=== PATIENT | male | born 1985 ===

== ENCOUNTER 2022-06-02 23:50 | Emergency (ER) | payer OTHER, SELFPAY ==
--- NOTE | ~2022-06-02 | CT_ITS ---
EXAMINATION: CT ABDOMEN AND PELVIS WITHOUT CONTRAST CLINICAL INFORMATION: Right flank pain, hematuria COMPARISON: 04/24/2017 TECHNIQUE: Multidetector volumetric imaging was performed from the superior aspect of the liver through the pubic symphysis. Sagittal and coronal reformatted images were obtained on the technologist's workstation. This CT examination was performed using dose optimization techniques as appropriate, variously including the following: *Automated exposure control *Adjustment of mA and/or kV according to patient size (this includes techniques or standardized protocols for targeted exams where dose is matched to indication/reason for exam; i.e. extremities or head) *Use of iterative reconstruction technique DLP: 701 mGy-cm FINDINGS: LUNG BASES: The visualized lung bases are unremarkable. LIVER, GALLBLADDER, AND BILIARY TREE: The liver is normal in size, shape, and attenuation. No focal hepatic lesion or biliary ductal dilatation is identified. The gallbladder is contracted and not adequately evaluated. PANCREAS: Unremarkable. SPLEEN: Unremarkable. ADRENAL GLANDS: Unremarkable. KIDNEYS AND URETERS: There is a 4 mm mid right ureteral calculus with mild hydronephrosis and perinephric stranding. No left hydronephrosis. There are several scattered bilateral renal calculi measuring up to 3 mm. BLADDER: Unremarkable. GASTROINTESTINAL TRACT: No evidence of bowel obstruction or significant wall thickening. Scattered colonic diverticulosis. The appendix is unremarkable. No free fluid or free air is seen. ABDOMINAL WALL: No significant hernia is appreciated. LYMPH NODES: Normal. VASCULAR: Unremarkable. PELVIC VISCERA: Unremarkable. OSSEOUS STRUCTURES: Bilateral L5 pars defects are noted with grade 1 anterolisthesis of L5 on S1. CT/CT abdomen pelvis wo IV con IMPRESSION: 1. Mid right ureteral calculus measuring 4 mm with mild hydronephrosis. 2. Several scattered bilateral renal calculi.
[2022-06-02 23:54] VITALS: BP 147/86; PULSE 79; RESP 17; TEMP 36.7; O2SAT 100; BMI 32.5
[2022-06-03] MEDS: Ibuprofen 600 MG TABLET PO (00:01)
[2022-06-03 00:19] LABS: MANUAL DIFF FLAG NO
[2022-06-03 00:22] LABS: Basophils Absolute Auto 0.1 X10*3/uL (0.0-0.2); Basophils Percent Auto 0.5 % (0-2); Eosinophils Absolute Auto 0.4 X10*3/uL (0.0-0.4); Hematocrit 41.4 % (42.0-52.0); Hemoglobin 14.6 g/dl (14.0-18.0); Imm Gran Abs Auto 0.06 X10*3/uL (0.00-0.03); Imm Gran Pct Auto 0.7 % (0.0-0.4); Lymphocytes Absolute Auto 3.5 X10*3/uL (1.2-4.9); Lymphocytes Percent Auto 37.9 % (20-40); Mean Corpuscular HGB Conc 35.3 g/dl (31.0-36.0); Mean Corpuscular Hemoglobin 32.2 pg (27.0-33.0); Mean Corpuscular Volume 91.4 fL (80.0-98.0); Mean Platelet Volume 8.5 fL (9.4-12.4); Monocytes Absolute Auto 0.9 X10*3/uL (0.1-1.2); Monocytes Percent Auto 9.4 % (2-11); Neutrophils Absolute Auto 4.4 x10*3/uL (2.0-8.3); Neutrophils Percent Auto 47.5 % (45-73); Platelet Count 318 X10*3/uL (160-400); Red Blood Count 4.53 X10*6/uL (4.60-5.80); Red Cell Distribution Width 11.9 % (11.0-16.0); White Blood Count 9.2 X10*3/uL (4.8-10.8)
[2022-06-03 00:39] LABS: Alanine Aminotransferase 28 U/L (0-40); Albumin Level 4.2 g/dL (3.5-5.0); Alkaline Phosphatase 86 U/L (39-117); Anion Gap 17 (12-20); Aspartate Amino Transferase 24 U/L (5-37); Blood Urea Nitrogen 15 mg/dL (9-16); Calcium 9.4 mg/dL (8.4-10.2); Carbon Dioxide 26 mmol/L (22-29); Chloride 100 mmol/L (96-108); Creatinine Clr Calc Pharmacy 92.3; Estimated Glomerular Filt Rate > 60; Glucose Random 100 mg/dL (60-115); Lipase 62 U/L (8-78); Potassium 3.4 mmol/L (3.3-5.1); Sodium 140 mmol/L (135-145); Total Protein 7.2 g/dL (6.5-8.0)
[2022-06-03 01:15] LABS: Bilirubin Total 0.5 mg/dL (0.0-1.0)
[2022-06-03 01:47] VITALS: BP 138/80; PULSE 70; RESP 18; TEMP 36.8; O2SAT 98
[2022-06-03 01:55] LABS: Appearance Urine Cloudy; Color Urine RED; Glucose Urine UA Negative (Negative); Leukocyte Esterase Urine Negative (Negative); Nitrite Urine Positive (Negative); UMIC TRIGGER UACC YES; Urine Blood Large (3+) (Negative); Urine Ketones Negative (Negative); Urine Protein 30 (1+) mg/dL (Neg-Trace)
[2022-06-03 02:00] LABS: Bacteria Urine None Seen (None Seen); Hyaline Casts Urine 0-2 /LPF (0-2); RBC Urine >20 /HPF (0-2); Squamous Epithelial Cell Urine 0-2 /HPF (0-2); UACC Culture Trigger YES
--- NOTE | 2022-06-03 02:03 | ED.ABDPAIN ---
HPI - Abdominal Pain General Chief Complaint: Abdominal Pain Stated Complaint: stomach/kidney pain, urinating blood Time Seen by Provider: 06/03/22 01:13 Source: patient Mode of arrival: ambulatory Limitations: no limitations History of Present Illness HPI narrative: 37-year-old male who presents emergency department for evaluation of right abdominal/flank pain and hematuria. Patient states that 2 days prior he noted some blood in his urine. States that he had some mild right-sided flank and abdominal pain at that time. He states that last night at 20:30 hours he had a sudden onset of severe right flank and right lower abdominal pain which was constant, sharp and 10/10. He had associated nausea but no vomiting. He denied fever or chills. He did notice blood in his urine. He denied dysuria or frequency. The patient states he has had kidney stones in the past his last kidney stone was 1 year prior. MD elicited complaint: abdominal pain and flank pain Pertinent past history: kidney stones Onset (ago): hour(s) (4) Pain Consistency: constant Location: RLQ and R flank Severity: severe Pain scale (0-10): 10 Quality: sharp Radiation: none Migration to: no migration Exacerbating factors: nothing Relieving factors: nothing Associated symptoms: nausea and hematuria Related Data Previous Rx's Medication Instructions Recorded clonidine HCl 0.1 mg tablet 0.1 mg PO BEDTIME 90 days #90 tabs 11/15/21 naltrexone 50 mg tablet 50 mg PO DAILY 30 days #30 tabs 11/15/21 sertraline 25 mg tablet (Zoloft) 25 mg PO DAILY 90 days #90 tabs 11/15/21 albuterol sulfate 90 mcg/actuation 1 inh inhalation QID PRN shortness 01/07/22 aerosol inhaler of breath or wheezing 30 days #8.5 grams ondansetron 4 mg disintegrating 4 mg PO Q6-8H PRN nausea and 06/03/22 tablet vomiting #14 tabs oxycodone-acetaminophen 5 mg-325 1 tab PO Q4H PRN pain #14 tabs 06/03/22 mg tablet (Percocet) tamsulosin 0.4 mg capsule (Flomax) 0.4 mg PO DAILY #30 caps 06/03/22 Allergies Allergy/AdvReac Type Severity Reaction Status Date / Time No Known Allergies Allergy Verified 06/02/22 23:54 [No Known Allergies*] Review of Systems Review of Systems Yes all other systems are reviewed and are negative [facility] Past Medical History [facility] Narrative: Past medical history: Kidney stones. Past surgical history: None. Social history: The patient does smoke cigarettes. He states that he has been drinking daily. He states that he has used cocaine and PCP intranasally. Patient's brother 2 weeks prior from an overdose and he states that he has been grieving and has not been taking care of himself. Family History Family History Mother No problems noted. Father DMII (diabetes mellitus, type 2) Brother No problems noted. Brother No problems noted. Brother No problems noted. Sister No problems noted. Sister No problems noted. Sister No problems noted. Son No problems noted. Son No problems noted. Social History Social History Housing: Apartment Alcohol intake: former Year quit: 2019 Patient Tobacco Use Status: Never used Tobacco e-Cigarette/Vaping Use: Never Used Second Hand Smoke Exposure: No Substance Use Type: Crack/Cocaine and Hallucinogens Advance Directives: No Advance Directives Information Provided: No Current occupational status: employed Current occupation: [employer] Cognitive needs: No Hearing needs: No Vision needs: No Physical Exam ED Vital Signs: Vital Signs - 24 hr 06/02/22 23:54 06/03/22 01:47 06/03/22 04:27 Temperature 98.0 F 98.2 F 98.2 F Pulse Rate 79 70 72 Respiratory Rate 17 18 17 Blood Pressure 147/86 H 138/80 138/74 Pulse Oximetry 100 98 98 Oxygen Delivery Method Room Air Room Air Room Air BMI result Body Mass Index 32.5 Const General: cooperative and no acute distress Orientation/consciousness: oriented to person and oriented to place Limitations: no limitations HENMT Head: Yes normal to inspection, Yes normocephalic and Yes atraumatic Ears: external ears normal General nose exam: Normal external nose present Face and sinus: Yes normal facial exam Mouth: Normal oral and palatal mucosa present Throat: Yes posterior oropharynx normal Eyes General: appearance normal, both eyes and all related structures Pupils: Equal, round and reactive pupils present Neck Neck: Yes normal visual inspection, Yes no lymphadenopathy, Yes trachea midline and Yes supple Chest Chest palpation & inspection: normal inspection of the chest and normal palpation of entire chest wall Resp Effort & Inspection: normal respiratory effort and able to speak in complete sentences Auscultation: clear to auscultation bilaterally Cardio Rate: regular rate Rhythm: regular rhythm Heart sounds: S1 normal heart sound present, S2 normal heart sound present and no murmurs GI Inspection: Yes normal to inspection Palpation (GI): Soft to palpation, Tenderness to palpation present (GI) in the RLQ and no guarding Auscultation: normal bowel sounds General: Yes CVA tenderness on the right Back/Spine/Pelvis Back: CVA tenderness Skin General skin exam: no rashes or lesions noted Neuro General: oriented to person and oriented to place Cranial nerves: Yes CN's II-XII intact bilaterally and Yes Equal, round and reactive pupils present Cognition (Neuro): normal cognition Motor exam (neuro): 5/5 motor strength present throughout Extrem General: Yes normal to inspection Psych Appearance: grossly normal Speech and movement: Normal speech and movement present Affect: normal affect Attitude: cooperative Thought process: Normal thought process present Thought content: Normal thought content present Course Course Course Narrative: 37-year-old male with history kidney stones who presents emergency department for sudden onset of right flank and right lower quadrant abdominal pain at 20:30 hours last night, he has had hematuria intermittently for 2 days. Patient's exam did reveal right CVA tenderness and right lower quadrant tenderness. Laboratory evaluation revealed a normal CBC and CMP. The patient's CT scan of the abdomen pelvis revealed a mid right your all calculus measuring 4 mm . Urinalysis revealed 3+ blood, positive nitrates, negative leukocyte esterase. Microscopic revealed greater than 20 RBCs, 6-10 WBCs 2 squamous cells and no bacteria. Patient's presentation is consistent with acute renal calculus causing renal colic. Patient was treated with Toradol 15 mg IV morphine 4 mg IV and normal saline x1 L. He was also given Flomax 0.4 mg orally. 0617: Patient did get some improvement with the above treatment, he states that his pain is 6/10. He was given morphine 4 mg IV. Patient will be discharged home. Patient was advised to take ibuprofen and for pain not relieved by ibuprofen was prescribed Percocet. Was also prescribed Flomax and Zofran Medications Administered Discontinued Medications Generic Name Dose Route Start Last Admin Trade Name Freq PRN Reason Stop Dose Admin Sodium Chloride 1,000 mls @ 999 mls/hr 06/03/22 02:03 06/03/22 04:04 Ns IV 06/03/22 03:03 Infused .Q1H1M STA Infusion Ibuprofen 600 mg 06/02/22 23:58 06/03/22 00:01 Ibuprofen 600 Mg Tablet PO 06/02/22 23:59 600 mg ONCE ONE Administration Ketorolac Tromethamine 15 mg 06/03/22 02:03 06/03/22 02:36 Ketorolac Tromethamine 15 Mg/Ml Vial IVPUSH 06/03/22 02:04 15 mg ONCE STA Administration Morphine Sulfate 4 mg 06/03/22 02:03 06/03/22 02:35 Morphine Sulfate 4 Mg/Ml Cartridge IVPUSH 06/03/22 02:04 4 mg ONCE STA Administration Protocol Ondansetron HCl 4 mg 06/03/22 02:03 06/03/22 02:35 Ondansetron Hcl 4 Mg/2 Ml Vial IVPUSH 06/03/22 02:04 4 mg ONCE ONE Administration Tamsulosin HCl 0.4 mg 06/03/22 02:10 06/03/22 02:36 Tamsulosin Hcl 0.4 Mg Capsule PO 06/03/22 02:11 0.4 mg ONCE ONE Administration MDM - Abdominal Pain Lab Data Result diagrams: 06/03/22 00:14 06/03/22 00:14 Labs: Lab Results 06/03/22 06/03/22 06/03/22 Range/Units 00:14 00:14 01:50 WBC 9.2 (4.8-10.8) X10*3/uL RBC 4.53 L (4.60-5.80) X10*6/uL Hgb 14.6 (14.0-18.0) g/dl Hct 41.4 L (42.0-52.0) % MCV 91.4 (80.0-98.0) fL MCH 32.2 (27.0-33.0) pg MCHC 35.3 (31.0-36.0) g/dl RDW 11.9 (11.0-16.0) % Plt Count 318 (160-400) X10*3/uL MPV 8.5 L (9.4-12.4) fL Immature Gran % (Auto) 0.7 H (0.0-0.4) % Neut % (Auto) 47.5 (45-73) % Lymph % (Auto) 37.9 (20-40) % [place] % (Auto) 9.4 (2-11) % Eos % (Auto) 4.0 (0-4) % Baso % (Auto) 0.5 (0-2) % Lymph # (Auto) 3.5 (1.2-4.9) X10*3/uL [place] # (Auto) 0.9 (0.1-1.2) X10*3/uL Eos # (Auto) 0.4 (0.0-0.4) X10*3/uL Baso # (Auto) 0.1 (0.0-0.2) X10*3/uL Abs Immat Gran (auto) 0.06 H (0.00-0.03) X10*3/uL Absolute Neuts (auto) 4.4 (2.0-8.3) x10*3/uL Absolute Nucleated RBC 0.000 (0.0-0.012) X10*3/uL Nucleated RBC % (auto) 0.0 (0.0-0.2) /100WBC Sodium 140 (135-145) mmol/L Potassium 3.4 (3.3-5.1) mmol/L Chloride 100 (96-108) mmol/L Carbon Dioxide 26 (22-29) mmol/L Anion Gap 17 (12-20) BUN 15 (9-16) mg/dL Creatinine 1.30 (0.5-1.4) mg/dL Estim Creat Clear Calc 92.3 Estimated GFR > 60 Random Glucose 100 (60-115) mg/dL Calcium 9.4 (8.4-10.2) mg/dL Total Bilirubin 0.5 (0.0-1.0) mg/dL AST 24 (5-37) U/L ALT 28 (0-40) U/L Alkaline Phosphatase 86 (39-117) U/L Total Protein 7.2 (6.5-8.0) g/dL Albumin 4.2 (3.5-5.0) g/dL Lipase 62 (8-78) U/L Urine Color RED Urine Appearance Cloudy Urine pH 7.0 (5.0-9.0) Ur Specific [place] 1.020 (1.005-1.025) Urine Protein 30 (1+) H (Neg-Trace) mg/dL Urine Glucose (UA) Negative (Negative) mg/dL Urine Ketones Negative (Negative) mg/dL Urine Blood Large (3+) H (Negative) Urine Nitrite Positive H (Negative) Ur Leukocyte Esterase Negative (Negative) Urine RBC >20 H (0-2) /HPF Urine WBC 6-10 H (0-5) /HPF Ur Squamous Epith Cells 0-2 (0-2) /HPF Urine Bacteria None Seen (None Seen) Hyaline Casts 0-2 (0-2) /LPF Discharge Plan Discharge Clinical Impression: Right ureteral calculus, Ureteral colic Patient Disposition: Home, Self-Care Instructions: Kidney Stones (ED), How to Strain Your Urine (ED) Additional Instructions: Your blood work was normal. Your urine did reveal white blood cells and red blood cells but no bacteria. Your CT scan of your abdomen pelvis without IV contrast revealed a right 4 mm mid ureteral stone. This is causing her pain You also have small kidney stones in both kidneys. Take ibuprofen 200 mg pills, 3 pills every 6 hours as needed for pain. For pain not relieved by ibuprofen, take Percocet 5/325 mg pills, 1 pill every 4 hours as needed for pain. Do not drive or work while taking this medication since they can cause sleepiness. Percocet contains oxycodone which is a narcotic medication that can be addicting. If you are concerned about addiction you can ask the pharmacist for less pills or do not get this prescription filled. Take Flomax (tamsulosin) 0.4 mg once a day for the next 2 weeks or until you pass the stone. This medication helps relax the ureter and may help you pass the stone sooner. Follow-up with our on-call urologist, in 1-2 weeks for re-evaluation Please return to the emergency department if your symptoms get worse or if you develop any symptoms that are concerning to you. Prescriptions: New oxycodone-acetaminophen [Percocet] 5-325 mg tablet 1 tab PO Q4H PRN (Reason: pain) Qty: 14 0RF Rx Instructions: Partial Fill upon patient request. tamsulosin [Flomax] 0.4 mg capsule 0.4 mg PO DAILY Qty: 30 0RF ondansetron 4 mg tablet,disintegrating 4 mg PO Q6-8H PRN (Reason: nausea and vomiting) Qty: 14 0RF No Action albuterol sulfate 90 mcg/actuation HFA aerosol inhaler 1 inh inhalation QID PRN (Reason: shortness of breath or wheezing) 30 Days Qty: 8.5 1RF clonidine HCl 0.1 mg tablet 0.1 mg PO BEDTIME 90 Days Qty: 90 1RF sertraline [Zoloft] 25 mg tablet 25 mg PO DAILY 90 Days Qty: 90 1RF naltrexone 50 mg tablet 50 mg PO DAILY 30 Days Qty: 30 2RF
[2022-06-03] MEDS: Morphine Sulfate 4 MG/ML CARTRIDGE IVPUSH ×2 (02:35→06:40)
[2022-06-03] MEDS: ondansetron HCL 4 MG/2 ML VIAL IVPUSH (02:35)
[2022-06-03] MEDS: 0.9 % Sodium Chloride 1,000 ML 999 ML IV (02:36)
[2022-06-03] MEDS: Tamsulosin HCL 0.4 MG CAPSULE PO (02:36)
[2022-06-03] MEDS: Ketorolac Tromethamine 15 MG/ML VIAL IVPUSH (02:36)
[2022-06-03 04:27] VITALS: BP 138/74; PULSE 72; RESP 17; TEMP 36.8; O2SAT 98
== END 2022-06-03 06:50 | disposition home or self-care (01) ==
PROVIDERS: Emergency Provider Emergency Medicine Emergency Medical Services
DX: N20.1 Calculus of ureter (principal); N23 Unspecified renal colic; R31.9 Hematuria, unspecified; Z79.899 Other long term (current) drug therapy
CPT/HCPCS: 36415; 74176; 80053; 81001; 83690; 85025; 87086; 96361; 96374; 96375; 96376; 99284; J1885; J2270; J2405

== ENCOUNTER 2022-11-26 20:25 | Emergency (ER) | payer OTHER, SELFPAY ==
[2022-11-26 20:37] VITALS: BP 152/94; PULSE 79; RESP 18; TEMP 36.6; O2SAT 98; BMI 22.9
--- NOTE | 2022-11-26 20:39 | ED.DENTAL ---
HPI - Dental/Oral General Chief complaint: Dental/Oral Stated complaint: oral pain Time Seen by Provider: 11/26/22 20:43 Source: patient Mode of arrival: ambulatory Limitations: no limitations History of Present Illness HPI Narrative: 37-year-old male with history of asthma, obesity, depression, lumbar back pain presents to the ER for evaluation of right lower dental pain for the last 3 days. He reports the pain is worsening, now radiating to his right ear. It is affecting his sleep. He called his dentist and has an appointment on December 11. He has been taking Tylenol and ibuprofen with no relief. He denies any fevers or facial swelling. No neck swelling. He is status post wisdom teeth extraction about a year ago. No known dental injury; he does have several fillings in that affected tooth. MD Complaint: tooth pain Location: Tooth # (31) Onset (ago): day(s) (3) Duration: constant Severity: severe Severity scale (1-10): 10 Relieving factors: nothing Exacerbating factors: chewing Context: poor dental care Associated symptoms: gum swelling and ear pain Treatment prior to arrival: oral analgesic Related Data Previous Rx's Medication Instructions Recorded clonidine HCl 0.1 mg tablet 0.1 mg PO BEDTIME 90 days #90 tabs 11/15/21 naltrexone 50 mg tablet 50 mg PO DAILY 30 days #30 tabs 11/15/21 sertraline 25 mg tablet (Zoloft) 25 mg PO DAILY 90 days #90 tabs 11/15/21 albuterol sulfate 90 mcg/actuation 1 inh inhalation QID PRN shortness 01/07/22 aerosol inhaler of breath or wheezing 30 days #8.5 grams ondansetron 4 mg disintegrating 4 mg PO Q6-8H PRN nausea and 06/03/22 tablet vomiting #14 tabs tamsulosin 0.4 mg capsule (Flomax) 0.4 mg PO DAILY #30 caps 06/03/22 cyclobenzaprine 10 mg tablet 10 mg PO BEDTIME #14 tabs 07/10/22 meloxicam 15 mg tablet 15 mg PO DAILY #14 tabs 07/10/22 amoxicillin 875 mg-potassium 1 tab PO BID #20 tabs 11/26/22 clavulanate 125 mg tablet ibuprofen 800 mg tablet 800 mg PO Q8H PRN pain #20 tabs 11/26/22 tramadol 50 mg tablet 50 mg PO Q8H PRN severe pain 11/26/22 (scale score 7-10) #6 tabs Allergies Allergy/AdvReac Type Severity Reaction Status Date / Time No Known Allergies Allergy Verified 07/10/22 15:43 [No Known Allergies*] Review of Systems Review of Systems: Yes all other systems are reviewed and are negative [facility] Family History Family History Mother No problems noted. Father DMII (diabetes mellitus, type 2) Brother No problems noted. Brother No problems noted. Brother No problems noted. Sister No problems noted. Sister No problems noted. Sister No problems noted. Son No problems noted. Son No problems noted. Social History Social History Housing: Apartment Alcohol intake: former Year quit: 2019 Patient Tobacco Use Status: Never used Tobacco e-Cigarette/Vaping Use: Never Used Second Hand Smoke Exposure: No Substance Use Type: Crack/Cocaine and Hallucinogens Current occupational status: employed Current occupation: [employer] Cognitive needs: No Hearing needs: No Vision needs: No Physical Exam Vital Signs: Vital Signs: Last Vital Signs Temp 98 F 11/26/22 20:37 Pulse 79 11/26/22 20:37 Resp 18 11/26/22 20:37 BP 152/94 H 11/26/22 20:37 Pulse Ox 98 11/26/22 20:37 O2 Del Method Room Air 11/26/22 20:37 BMI result Body Mass Index 22.9 Appearance: Alert. Oriented X3. No acute distress. HEENT: normal external inspection, no facial swelling. Poor dentition right lower molar with several fillings, the tooth is tender, not mobile. There is associated gingival swelling and tenderness on the you call side. No fluctuance. No trismus. Neck: Normal inspection, no submandibular swelling. CVS: Normal heart rate and rhythm. Pulses normal. Respiratory: No respiratory distress. Lungs are clear throughout Skin: Skin warm and dry. Normal skin color. Normal skin turgor. No rashes. Extremities: Normal inspection x4, no joint swelling Neuro: Oriented X 3. No motor deficit. No sensory deficit. Medical Decision Making Medical Decision Making MDM Narrative: 37-year-old male presents to the ER for evaluation of right lower dental pain for the last 3 days. Clinical exam and presentation are consistent with an evolving dental abscess. He has no facial swelling or trismus. No area of fluctuance for drainage today. Will start on antibiotics and pain control. He has an appointment with his dentist in 2 weeks. He is stable for discharge home with outpatient follow-up. Patient agrees with plan. Differential Diagnosis Differential Diagnoses: The differential diagnosis associated with the presentation includes Dental abscess, toothache, dental fracture External Record Review External record reviewed: Outpatient record and Prior outpatient labs Prescription Management I considered prescription management with: Pain Medication and Antibiotic Critical Care Time Critical Care Time Critical Care Time: No Discharge Plan Discharge Clinical Impression: Dental abscess Patient Disposition: Home, Self-Care Instructions: Dental Abscess (ED) Additional Instructions: Take the prescribed antibiotic as directed. Started tonight. Complete the entire course and do not miss any doses. Take the prescribed ibuprofen every 8 hours, take it with food. Also recommend 975 mg of Tylenol every 6 hours around the clock. Take the prescribed tramadol as needed for severe pain only. Follow-up with your dentist as soon as possible. If you develop new or worsening symptoms call 911 or come back to the ER for further evaluation. Prescriptions: New amoxicillin-pot clavulanate 875-125 mg tablet 1 tab PO BID Qty: 20 0RF ibuprofen 800 mg tablet 800 mg PO Q8H PRN (Reason: pain) Qty: 20 0RF tramadol 50 mg tablet 50 mg PO Q8H PRN (Reason: severe pain (scale score 7-10)) Qty: 6 0RF No Action albuterol sulfate 90 mcg/actuation HFA aerosol inhaler 1 inh inhalation QID PRN (Reason: shortness of breath or wheezing) 30 Days Qty: 8.5 1RF tamsulosin [Flomax] 0.4 mg capsule 0.4 mg PO DAILY Qty: 30 0RF ondansetron 4 mg tablet,disintegrating 4 mg PO Q6-8H PRN (Reason: nausea and vomiting) Qty: 14 0RF clonidine HCl 0.1 mg tablet 0.1 mg PO BEDTIME 90 Days Qty: 90 1RF sertraline [Zoloft] 25 mg tablet 25 mg PO DAILY 90 Days Qty: 90 1RF naltrexone 50 mg tablet 50 mg PO DAILY 30 Days Qty: 30 2RF meloxicam 15 mg tablet 15 mg PO DAILY Qty: 14 0RF cyclobenzaprine 10 mg tablet 10 mg PO BEDTIME Qty: 14 0RF Interventions: ED Discharge Assessment Last Done: 11/26/22 20:44
== END 2022-11-26 20:52 | disposition home or self-care (01) ==
LOC: HO.ED 20:50
PROVIDERS: Emergency Provider Emergency Medicine; PCP Physician Assistant
DX: K04.7 Periapical abscess without sinus (principal)
CPT/HCPCS: 99282; 99283

== ENCOUNTER 2023-03-28 15:24 | Emergency (ER) | payer OTHER, SELFPAY ==
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
[2023-03-28 15:46] VITALS: BP 136/88; BP 138/91; PULSE 82; RESP 18; O2SAT 100; O2SAT 98; BMI 32.1
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
--- NOTE | 2023-03-28 16:14 | PC.NURSE ---
Patient incont of urine prior to arrival, stating unable to provide urine sample at this time
--- NOTE | 2023-03-28 17:20 | PC.NURSE ---
Patient alert and oriented, requesting discharge. Provider aware, stating patient must have a ride home from ER. Patient aware and in agreement for calling for a ride
--- NOTE | 2023-03-28 17:35 | PC.NURSE ---
Patient serjio called stating that she will not be coming to pick patient up because she knows that he was using PCP today. States patient has been in rehab and has a drug and etoh problem. Patient denies etoh use, denies SI, HI, does not want detox.
--- NOTE | 2023-03-28 18:05 | PC.NURSE ---
Patient step father into ED to pick patient up, patient verbalized understanding of discharge instructions
== END 2023-03-28 18:05 | disposition home or self-care (01) ==
PROVIDERS: Emergency Provider Emergency Medicine
DX: S39.012A Strain of muscle, fascia and tendon of lower back, initial encounter (principal); V44.5XXA Car driver injured in collision with heavy transport vehicle or bus in traffic accident, initial encounter; Y93.89 Activity, other specified; Y92.410 Unspecified street and highway as the place of occurrence of the external cause; Y99.9 Unspecified external cause status
CPT/HCPCS: 71046; 72100; 99283; 99284

== ENCOUNTER 2023-04-16 13:25 | Outpatient (AMB) | payer OTHER, SELFPAY ==
--- NOTE | 2023-04-16 13:28 | MHC.PC.OV ---
Vital Signs 04/16/23 13:29 Height 5 ft 9 in Weight 210 lb 4 oz BMI 31.0 BP 122/88 Blood Pressure Location Lt brachial Position Sitting Respiration 16 Pulse 75 Pulse Source Pulse Oximeter Pulse Oximetry (%) 98 Oxygen Delivery Method Room Air Intake Visit Reasons: Annual PE Intake Note: Patient is here today for a physical. DTA provider medical statement form to fill out. Electronic Maintenance Supervisor Required: No Accompanied by: Self / Same As Patient Allergies No Known Allergies [No Known Allergies*] Allergy (Verified 04/16/23 13:47) Medication List - Last Reconciled 04/16/23 by Carlos Hernandez PA-C albuterol sulfate 90 mcg/actuation 1 inh inhalation QID PRN 30 days clonidine HCl 0.1 mg PO BEDTIME 90 days ibuprofen 800 mg PO Q8H PRN meloxicam 15 mg PO DAILY sertraline (Zoloft) 25 mg PO DAILY 90 days tramadol 50 mg PO Q8H PRN Tobacco use date assessed: 04/16/23 Dental Screening Dental Screen Date: 04/16/23 Did you have a dental visit in the last 12 months?: No Did you have a dental problem in the last 6 months where you did not have access to dental care?: No Was dental information given to patient?: Yes HPI Annual PE HPI Details Patient is a 37-year-old male here today for a t annual physical visit. Patient has past medical history significant for depression, polysubstance abuse and anxiety. Recently seen the ER for lower back pain x-ray did show arthritis in his lower back and L5 S1 disc height loss.. Does have a small amount of scoliosis as well. He is interested in further mint and would likely benefit from physical therapy. If fails physical therapy will consider MRI lumbar spine to evaluate for disc herniation. We did discuss pain management and will Depression: Has been suffering more with depression as of lately. He reports his brother diet this past year from and drug overdose. He would like to restart his SSRI therapy. Vaccine: UTD Tdap and COVID vacc. Recenly gotten flu vacine [facility] Medical History (Updated 04/16/23 @ 14:10 by Carlos Hernandez PA-C) SANJUANA (generalized anxiety disorder) MDD (major depressive disorder), recurrent episode, moderate Asthma Polysubstance abuse Family History Mother No problems noted. Father DMII (diabetes mellitus, type 2) Brother No problems noted. Brother No problems noted. Brother No problems noted. Sister No problems noted. Sister No problems noted. Sister No problems noted. Son No problems noted. Son No problems noted. Social History (Updated 04/16/23 @ 13:54 by Carlos Hernandez PA-C) Housing: Apartment Alcohol intake: former Year quit: 2019 Patient Tobacco Use Status: Never used Tobacco e-Cigarette/Vaping Use: Never Used Second Hand Smoke Exposure: No Substance Use Type: Crack/Cocaine and Unknown service: No Current occupational status: employed Current occupation: [employer] Cognitive needs: No Hearing needs: No Vision needs: No Questionnaire PHQ-9 Over the last 2 weeks, how often have you been bothered by any of the following problems? 1. Little interest or pleasure in doing things: more than half the days 2. Feeling down, depressed, or hopeless: nearly every day 3. Trouble falling or staying asleep, or sleeping too much: more than half the days 4. Feeling tired or having little energy: nearly every day 5. Poor appetite or overeating: nearly every day 6. Feeling bad about yourself - or that you are a failure or have let yourself or your family down: nearly every day 7. Trouble concentrating on things, such as reading the newspaper or watching television: nearly every day 8. Moving or speaking so slowly that other people could have noticed. Or the opposite - being so fidgety or restless that you have been moving around a lot more than usual: more than half the days 9. Thoughts that you would be better off or of hurting yourself in some way: more than half the days Total score: 23 Depression Screening Interpretation: Positive Depression Screening Follow-up: Existing condition, Community Mental Health Worker F/U and Follow-up Visit Requested Depression Screening Done: Yes 82261 - PHQ-9 Billing: Yes Source: Developed by Drs. Abel Velasquez, Jennifer Rodríguez, Dionisio Driscoll and colleagues, with an educational john from [employer] Thrive Questionnaire Date Thrive assessed: 04/16/23 I am a: Patient What is your living situation today?: I have a steady place to live Within the past 12 months, did the food you bought not last and you didn't have the money to get more?: Never true Within the past 12 months, did you worry whether your food would run out before you got money to buy more?: Never true Do you have trouble paying for medicines?: No Do you have trouble getting transportation to medical appointments?: No Do you have trouble paying your heating and electricity bill?: No Do you have trouble taking care of your child, family member or friend?: No Do you have trouble with day-to-day activities such as bathing, preparing meals, shopping, managing finances, etc.?: No Are you currently unemployed and looking for a job?: No Are you interested in more education?: No Please select the resources that you would like help with: None Currently or been in a relationship where the following occur: no concerns reported AUDIT C Alcohol Use Questionnaire (AUDIT-C) 1. How often do you have a drink containing alcohol?: 2-3 times a week 2. How many drinks containing alcohol do you have on a typical day when you are drinking?: 7 to 9 3. How often do you have six or more drinks on one occasion?: Weekly Total Score: 9 SANJUANA-7 AMB Questionnaire SANJUANA-7 Date SANJUANA - 7 assessed: 04/16/23 Feeling nervous, anxious, or on edge: 2 = More than half the days Not being able to stop or control worryin = Nearly every day Worrying too much about different things: 3 = Nearly every day Trouble relaxin = Nearly every day Being so restless that it is hard to sit still: 3 = Nearly every day Becoming easily annoyed or irritable: 2 = More than half the days Feeling afraid as if something awful might happen: 2 = More than half the days Total SANJUANA-7 score (0-4 normal; 5-9 mild; 10-14 moderate; 15-21 severe): 18 Source: Developed by Drs. Abel Velasquez, Jennifer Rodríguez, Dionisio Driscoll and colleagues, with an educational john from [employer] SANJUANA-7 Assessment Billing SANJUANA-7 Assessment Tool: SANJUANA-7 Assessment 31897 Review of Systems Const Denies body aches, Denies chills, Denies excessive sweating, Denies fatigue, Denies fever(s) and Denies headache(s) Eyes Denies blurry vision ENT Denies dysphagia, Denies vertigo, Denies dizziness, Denies headache(s), Denies hearing loss and Denies tinnitus Card Denies chest pain, Denies chest pain with activity, Denies syncope, Denies irregular heart rhythm and Denies dyspnea Resp Denies chest congestion, Denies cough, Denies hemoptysis, Denies dyspnea and Denies wheezing GI Denies abdominal pain, Denies melena, Denies hematochezia, Denies coffee ground emesis, Denies dysphagia, Denies diarrhea, Denies nausea and Denies vomiting Denies difficulty urinating, Denies dysuria, Denies urinary frequency, Denies urinary hesitancy and Denies urinary urgency Musc Reports back pain, Denies arthralgias, Denies limited range of motion, Denies muscle cramps and Denies muscle weakness Skin/Breast Denies rash and Denies skin ulcer Neuro Denies Abnormal speech present, Denies confusion, Denies vertigo, Denies dizziness, Denies syncope, Denies headache(s), Denies memory loss and Denies seizure-like activity Psych Reports anxiety, Denies confusion, Reports depression, Denies memory loss, Denies panic attacks and Denies paranoia Endo Denies excessive sweating, Denies fatigue, Denies flushing, Denies polydipsia and Denies polyuria Aller/Immun Denies wheezing Physical exam (Primary Care) Vital Signs: Last Vital Signs Pulse 75 04/16/23 13:29 Resp 16 04/16/23 13:29 BP 122/88 04/16/23 13:29 Pulse Ox 98 04/16/23 13:29 Oxygen Delivery Method Room Air 04/16/23 13:29 BMI result Body Mass Index 31.0 BMI Assessment/Plan discussion: High Tobacco/Smoking Status: Tobacco use Status Tobacco use date assessed 04/16/23 04/16/23 13:41 Patient Tobacco Use Status Never used Tobacco 04/16/23 13:54 e-Cigarette/Vaping Use Never Used 04/16/23 13:54 PHQ-9: PHQ-9 Score PHQ-9: Total score 23 04/16/23 13:51 Depression Screening Interpretation: Positive Depression Screening Follow-up: Existing condition, Community Mental Health Worker F/U and Follow-up Visit Requested Thrive Assessment: Date of Thrive Assessment Date Thrive assessed 04/16/23 04/16/23 13:41 Currently or been in a relationship where the following occur: no concerns reported Const Other: OBESE General: cooperative, comfortable, no acute distress, alert and awake; No confusion Orientation/consciousness: oriented to person, oriented to place, patient oriented x3 and No confusion HENMT Head: Yes normocephalic Ears: external ears normal and TM's normal bilaterally Face and sinus: No sinus tenderness Mouth: Normal oral and palatal mucosa present and tongue normal Teeth and gingiva: dentition normal and gingiva normal Throat: Yes posterior oropharynx normal, Yes tonsils normal and Yes uvula midline Eyes Conjunctivae: conjunctivae normal Sclerae: sclerae normal Pupils: Equal, round and reactive pupils present EOM: EOMs intact bilaterally Direct Ophthalmoscopy: No no photophobia Neck Neck: Yes no lymphadenopathy, No tender and Yes no JVD Thyroid: Thyroid normal Carotids: no bruits Chest Chest palpation & inspection: no tenderness Resp Effort & Inspection: normal respiratory effort, no audible wheezes, not labored and no stridor Auscultation: no crackles, no rales, no rhonchi and no wheezes Cardio Jugular venous distension: no JVD Rate: regular rate, not bradycardic and not tachycardic Rhythm: regular rhythm Bruits: no carotid bruits Peripheral pulses: Peripheral pulses 2+ throughout GI Inspection: Yes normal to inspection, No abdominal wall ecchymosis and No visible herniation Palpation (GI): Soft to palpation, nontender, no guarding, not rigid and No hepatosplenomegaly present Auscultation: normoactive bowel sounds General: Yes no CVA tenderness Back/Spine/Pelvis Back: no CVA tenderness and No back tenderness Cervical Spine: cervical ROM normal Thoracic/Lumbar Spine: thoracic and lumbar spine normal to inspection, straight leg raise negative bilaterally, No thoraco-lumbar ROM limited and No lumbar spinal tenderness Skin Lesions: no lesions Rashes: no rashes Wounds: no wounds Neuro General: oriented to person, oriented to place, patient oriented x3, CN's II-XI intact bilaterally and No confusion Cranial nerves: Yes Equal, round and reactive pupils present and Yes Normal accommodation reflex present Cognition (Neuro): normal cognition Speech: No Abnormal speech present Gait exam (Neuro): Normal gait present Motor exam (neuro): 5/5 motor strength present throughout Extrem Right upper extremity: full ROM; no cyanosis Left upper extremity: full ROM; no cyanosis Right lower extremity: no edema Left lower extremity: no edema Psych Appearance: grossly normal Mental Status: mental status grossly normal Affect: normal affect Attitude: cooperative Thought process: Normal thought process present Assessment and Plan Assessment & Plan (1) Annual physical exam: Code(s): Z00.00 - Encounter for general adult medical examination without abnormal findings (2) MDD (major depressive disorder), recurrent episode, moderate: Code(s): F33.1 - Major depressive disorder, recurrent, moderate Plan: Patient's PHQ-9 score positive for moderate depression. This has been existing condition for him and he has not been on his depression medication. Like to restart his Zoloft and p.r.n. use of his clonidine. He denies any SI or HI. Will try to set him up with mental health therapy (3) Polysubstance abuse: Code(s): F19.10 - Other psychoactive substance abuse, uncomplicated Plan: Patient does report a history of polysubstance abuse. His drugs of choice was crack cocaine and oral opiates. He does admit to using illicit Percocet on the street for his lower back pain. (4) SANJUANA (generalized anxiety disorder): Code(s): F41.1 - Generalized anxiety disorder Plan: Patient's SANJUANA-7 score positive for anxiety which has been insisting condition for him. He would like to restart using clonidine and Zolofton a daily basis which does help him with his anxiety again he is interested seeing a mental health therapist (5) Obese: Code(s): E66.9 - Obesity, unspecified Qualifiers: Body mass index: BMI 34.0-34.9 Obesity classification: adult class 1 (BMI 30 - 34.9) Obesity type: due to excess calories Serious obesity comorbidity presence: without serious comorbidity Qualified Code(s): E66.09 - Other obesity due to excess calories; Z68.34 - Body mass index [BMI] 34.0-34.9, adult Plan: Patient does understand his BMI is over 30 try to work on being more physically active and adapting to better eating habits to reduce his weight. (6) Asthma: Code(s): J45.909 - Unspecified asthma, uncomplicated Qualifiers: Asthma complication type: uncomplicated Asthma persistence: intermittent Asthma severity: mild Qualified Code(s): J45.20 - Mild intermittent asthma, uncomplicated Plan: Asthma is reported as stable. Only using his albuterol inhaler and limited p.r.n. basis. Did have trouble with his asthma after his COVID infection last year. (7) Screening for diabetes mellitus (DM): Code(s): Z13.1 - Encounter for screening for diabetes mellitus (8) Lumbar back pain: Code(s): M54.50 - Low back pain, unspecified Plan: Patient does report having chronic lower back pain. He is interested seeing a chiropractor for an adjustment. Offered him formal physical therapy though he declines at this time. Will send for x-ray to rule out any osteoarthritis deformities. (9) Lumbar disc disease with radiculopathy: Code(s): M51.16 - Intervertebral disc disorders with radiculopathy, lumbar region Orders: Orders PT Evaluation and Treatment 04/16/23 M51.16 - Intervertebral disc disorders with radiculopathy, lumbar region, M51.9 - Unspecified thoracic, thoracolumbar and lumbosacral intervertebral disc disorder Referrals Counseling Referral F33.1 - Major depressive disorder, recurrent, moderate Medications: New baclofen 20 mg PO BEDTIME 30 days 30 tabs 1RF M51.16 - Intervertebral disc disorders with radiculopathy, lumbar region sertraline (Zoloft) 50 mg PO DAILY 90 tabs 1RF F33.1 - Major depressive disorder, recurrent, moderate Changed From meloxicam 15 mg PO DAILY 14 tabs 0RF M51.16 - Intervertebral disc disorders with radiculopathy, lumbar region To meloxicam 15 mg PO DAILY 30 days 30 tabs 1RF M51.16 - Intervertebral disc disorders with radiculopathy, lumbar region Refilled clonidine HCl 0.1 mg PO BEDTIME 90 days 90 tabs 1RF F41.1 - Generalized anxiety disorder tramadol 50 mg PO Q8H PRN 6 tabs 0RF severe pain (scale score 7-10) M51.16 - Intervertebral disc disorders with radiculopathy, lumbar region Discontinued ibuprofen Discontinued Reason: Doctor's Order 800 mg PO Q8H PRN 20 tabs 0RF pain sertraline (Zoloft) Discontinued Reason: Doctor's Order 25 mg PO DAILY 90 days 90 tabs 1RF F33.1 - Major depressive disorder, recurrent, moderate Coding Level of Care Code Est Pt Prev Care [id number]([id number]) Diagnoses Annual physical exam Z00.00 MDD (major depressive disorder), recurrent episode, moderate F33.1 Polysubstance abuse F19.10 SANJUANA (generalized anxiety disorder) F41.1 Class 1 obesity due to excess calories without serious comorbidity with body mass index (BMI) of 34.0 to 34.9 in adult E66.09; Z68.34 Body mass index: BMI 34.0-34.9 Obesity classification: adult class 1 (BMI 30 - 34.9) Obesity type: due to excess calories Serious obesity comorbidity presence: without serious comorbidity Mild intermittent asthma without complication J45.20 Asthma complication type: uncomplicated Asthma persistence: intermittent Asthma severity: mild Screening for diabetes mellitus (DM) Z13.1 Lumbar back pain M54.50 Lumbar disc disease with radiculopathy M51.16 Additional Codes SANJUANA-7 Assessment Billing - SANJUANA-7 Assessment Tool: SANJUANA-7 Assessment 14393 ([id number])
[2023-04-16 13:29] VITALS: BP 122/88; PULSE 75; RESP 16; O2SAT 98; BMI 31.0
== END 2023-04-16 14:16 | disposition home or self-care (01) ==
PROVIDERS: Visit Provider Physician Assistant
DX: Z00.00 Encounter for general adult medical examination without abnormal findings (principal); F33.1 Major depressive disorder, recurrent, moderate; F19.10 Other psychoactive substance abuse, uncomplicated; F41.1 Generalized anxiety disorder; E66.09 Other obesity due to excess calories; Z68.34 Body mass index [BMI] 34.0-34.9, adult; J45.20 Mild intermittent asthma, uncomplicated; Z13.1 Encounter for screening for diabetes mellitus; M54.50 Low back pain, unspecified; M51.16 Intervertebral disc disorders with radiculopathy, lumbar region
CPT/HCPCS: 96127; 99395

== ENCOUNTER 2023-05-14 22:20 | Emergency (ER) | payer MEDICAID, OTHER, SELFPAY ==
[2023-05-14 22:28] VITALS: BP 142/96; PULSE 68; RESP 18; TEMP 37; O2SAT 98; BMI 31.0
[2023-05-14 23:21] LABS: Amphetamine Screen Urine Not Detected (Not Detect); Barbiturates, Urine Not Detected (Not Detect); Benzodiazepines Screen Urine Not Detected (Not Detect); Cannabinoid Screen Urine Not Detected (Not Detect); Cocaine Screen Urine POSITIVE (Not Detect); Fentanyl, urine Not Detected (Not Detect); Opiate Screen Urine Not Detected (Not Detect); Phencyclidine Screen Urine POSITIVE (Not Detect)
[2023-05-14 23:30] LABS: COVID-19 Test Negative (Negative); IDNOW Serial# 08D9AD1C
[2023-05-14 23:41] LABS: MANUAL DIFF FLAG NO
[2023-05-14 23:42] LABS: Basophils Percent Auto 0.5 % (0-2); Eosinophils Absolute Auto 0.6 X10*3/uL (0.0-0.4); Hematocrit 41.1 % (42.0-52.0); Hemoglobin 14.5 g/dl (14.0-18.0); Imm Gran Abs Auto 0.01 X10*3/uL (0.00-0.03); Imm Gran Pct Auto 0.1 % (0.0-0.4); Lymphocytes Absolute Auto 2.3 X10*3/uL (1.2-4.9); Lymphocytes Percent Auto 31.3 % (20-40); Mean Corpuscular HGB Conc 35.3 g/dl (31.0-36.0); Mean Corpuscular Hemoglobin 32.4 pg (27.0-33.0); Mean Corpuscular Volume 91.7 fL (80.0-98.0); Mean Platelet Volume 8.8 fL (9.4-12.4); Monocytes Absolute Auto 0.8 X10*3/uL (0.1-1.2); Monocytes Percent Auto 11.4 % (2-11); Neutrophils Absolute Auto 3.6 x10*3/uL (2.0-8.3); Neutrophils Percent Auto 48.7 % (45-73); Platelet Count 280 X10*3/uL (160-400); Red Blood Count 4.48 X10*6/uL (4.60-5.80); Red Cell Distribution Width 11.1 % (11.0-16.0); White Blood Count 7.4 X10*3/uL (4.8-10.8)
--- NOTE | 2023-05-14 23:44 | ED.PSYCH ---
HPI - Psych General Chief Complaint: Psychiatric Symptoms Stated Complaint: Rehab Time Seen by Provider: 05/14/23 22:48 Source: patient Mode of arrival: ambulatory Limitations: no limitations History of Present Illness HPI Narrative: Patient is a 38-year-old male who presents emergency department requesting help. He states that he recently has increased his frequency of drug and alcohol usage, he states when I go on a [place] I times use a lot of cocaine and PCP when I am drinking. He reports last drug or alcohol consumption 2 days ago, on Friday . Currently he is experiencing new intermittent headache, about tremulous earlier today. He denies any history of withdrawal seizures. is requesting assistance with detox. He has been having increasing depression, alcohol or drug usage is his way of collection by his account care and he expresses made SI when he is using substances, but denies SI/ HI this time. He has a history of anxiety and depression, he reports he is currently prescribed clonidine and Zoloft which he does not feel as though these help, he is typically taking them a 3-4 times weekly Related Data Previous Rx's Medication Instructions Recorded albuterol sulfate 90 mcg/actuation 1 inh inhalation QID PRN shortness 01/07/22 aerosol inhaler of breath or wheezing 30 days #8.5 grams baclofen 20 mg tablet 20 mg PO BEDTIME 30 days #30 tabs 04/16/23 clonidine HCl 0.1 mg tablet 0.1 mg PO BEDTIME 90 days #90 tabs 04/16/23 meloxicam 15 mg tablet 15 mg PO DAILY 30 days #30 tabs 04/16/23 sertraline 50 mg tablet (Zoloft) 50 mg PO DAILY #90 tabs 04/16/23 tramadol 50 mg tablet 50 mg PO Q8H PRN severe pain 04/16/23 (scale score 7-10) #6 tabs Allergies Allergy/AdvReac Type Severity Reaction Status Date / Time No Known Allergies Allergy Verified 05/14/23 22:28 [No Known Allergies*] Review of Systems Review of Systems: Yes all other systems are reviewed and are negative PMFSH Past Medical History Attestation statement: The following information was validated with the patient. Source: old records reviewed Medical History SANJUANA (generalized anxiety disorder) MDD (major depressive disorder), recurrent episode, moderate Asthma Polysubstance abuse Family History Family History Mother No problems noted. Father DMII (diabetes mellitus, type 2) Brother No problems noted. Brother No problems noted. Brother No problems noted. Sister No problems noted. Sister No problems noted. Sister No problems noted. Son No problems noted. Son No problems noted. Social History Social History (Updated 04/16/23 @ 13:54 by Carlos Hernandez PA-C) Housing: Apartment Alcohol intake: former Year quit: 2019 Patient Tobacco Use Status: Never used Tobacco e-Cigarette/Vaping Use: Never Used Second Hand Smoke Exposure: No Substance Use Type: Crack/Cocaine and Unknown Advance Directives: No Advance Directives Information Provided: No service: No Current occupational status: employed Current occupation: [employer] Cognitive needs: No Hearing needs: No Vision needs: No Physical Exam Vital Signs: Vital Signs: Last Vital Signs Temp 98.6 F 05/14/23 22:28 Pulse 68 05/14/23 22:28 Resp 18 05/14/23 22:28 BP 142/96 H 05/14/23 22:28 Pulse Ox 98 05/14/23 22:28 O2 Del Method Room Air 05/14/23 22:28 BMI result Body Mass Index 31.0 Appearance: Alert.?Oriented to person, place and time. No acute distress.?Normal affect. Eyes: Pupils equal, round and reactive to light.? EOMI. No nystagmus. ENT: Pharynx normal.?? Neck: Normal inspection.? Neck supple.?? CVS: Heart sounds normal. Normal heart rate and rhythm.? Pulses normal.?? Respiratory: No respiratory distress.? Lung sounds clear to auscultation bilaterally?? Abdomen: Soft and non-tender. Normoactive bowel sounds. Skin: Skin warm and dry.? Normal skin color.? Extremities: No lower extremity edema.? Neuro: Moves all extremities spontaneously. Sensation intact bilaterally. CN II-XII intact. No focal neuro deficits. Ambulates with normal steady gait. Course Reevaluation(s) Reevaluation #1: placed in physician observation at this time so that care team evaluation can ensure for determination as to whether inpatient psychiatric services versus assistance with detox. At this time he is stable, no apparent distress. Time: 00:16 Reevaluation #2: Physician observation continued. VS stable, pending CARE team evaluation. no acute events reported overnight. + for PCP Medical Decision Making Medical Decision Making [facility] Narrative: Patient is a 38-year-old male with history of anxiety, depression, polysubstance use disorder presenting to the emergency department for evaluation of depression, vague SI without a specific plan while under the influence of drugs and alcohol usage, currently with out a size/ HI, and seeking assistance with detox from he drug and alcohol. At the time my examination he is calm and cooperative. He has been experiencing an intermittent headache today, did not take any OTC medication for this. He has no focal neurological deficits upon examination. No red flag symptoms with headache. Atraumatic in nature, low suspicion for ICH/ SDH/ intracranial mass /CVA. Will medicated with acetaminophen. plan to obtain basic labs and toxicology for medical clearance, and refer patient to CARE team. Differential Diagnosis Differential Diagnoses: The differential diagnosis associated with the presentation includes ( suicidal ideations, depression, polysubstance use disorder, tension headache. Further differential as noted above.) Admission/Observation Consideration of admission/observation: Escalation of care including admission/observation considered Consult Healthcare Provider Management of the patient was discussed with: Behavioral Health Provider (CARE team) Lab Data [facility] Lab Attestation statement: I reviewed the patient's lab results. CBC and CMP are overall unremarkable. Toxicology testing Positive for cocaine and PCP. 05/14/23 23:36 05/14/23 23:36 Labs: Lab Results 05/14/23 05/14/23 Range/Units 23:00 23:36 WBC 7.4 (4.8-10.8) X10*3/uL RBC 4.48 L (4.60-5.80) X10*6/uL Hgb 14.5 (14.0-18.0) g/dl Hct 41.1 L (42.0-52.0) % MCV 91.7 (80.0-98.0) fL MCH 32.4 (27.0-33.0) pg MCHC 35.3 (31.0-36.0) g/dl RDW 11.1 (11.0-16.0) % Plt Count 280 (160-400) X10*3/uL MPV 8.8 L (9.4-12.4) fL Immature Gran % (Auto) 0.1 (0.0-0.4) % Neut % (Auto) 48.7 (45-73) % Lymph % (Auto) 31.3 (20-40) % [place] % (Auto) 11.4 H (2-11) % Eos % (Auto) 8.0 H (0-4) % Baso % (Auto) 0.5 (0-2) % Lymph # (Auto) 2.3 (1.2-4.9) X10*3/uL [place] # (Auto) 0.8 (0.1-1.2) X10*3/uL Eos # (Auto) 0.6 H (0.0-0.4) X10*3/uL Baso # (Auto) 0.0 (0.0-0.2) X10*3/uL Abs Immat Gran (auto) 0.01 (0.00-0.03) X10*3/uL Absolute Neuts (auto) 3.6 (2.0-8.3) x10*3/uL Absolute Nucleated RBC 0.000 (0.0-0.012) X10*3/uL Nucleated RBC % (auto) 0.0 (0.0-0.2) /100WBC Sodium 142 (135-145) mmol/L Potassium 3.6 (3.3-5.1) mmol/L Chloride 106 (96-108) mmol/L Carbon Dioxide 28 (22-29) mmol/L Anion Gap 12 (12-20) BUN 15 (9-16) mg/dL Creatinine 1.18 (0.5-1.4) mg/dL Estim Creat Clear Calc 98.5 Estimated GFR > 60 Random Glucose 113 (60-115) mg/dL Calcium 9.0 (8.4-10.2) mg/dL Total Bilirubin 0.4 (0.0-1.0) mg/dL AST 21 (5-37) U/L ALT 18 (0-40) U/L Alkaline Phosphatase 70 (39-117) U/L Total Protein 7.0 (6.5-8.0) g/dL Albumin 4.0 (3.5-5.0) g/dL Urine Opiates Screen Not Detected (Not Detect) Urine Fentanyl Screen Not Detected (Not Detect) Ur Barbiturates Screen Not Detected (Not Detect) Ur Phencyclidine Scrn POSITIVE H (Not Detect) Ur Amphetamines Screen Not Detected (Not Detect) U Benzodiazepines Scrn Not Detected (Not Detect) Urine Cocaine Screen POSITIVE H (Not Detect) U Marijuana (THC) Screen Not Detected (Not Detect) COVID-19 (ROSS) Negative (Negative) COVID-19 Clin Com See Note Prescription Management I considered prescription management with: Pain Medication ( Acetaminophen for headache) Discharge Plan Discharge Clinical Impression: Depression, Polysubstance use disorder Patient Disposition: Still a Patient Prescriptions: No Action albuterol sulfate 90 mcg/actuation HFA aerosol inhaler 1 inh inhalation QID PRN (Reason: shortness of breath or wheezing) 30 Days Qty: 8.5 1RF clonidine HCl 0.1 mg tablet 0.1 mg PO BEDTIME 90 Days Qty: 90 1RF baclofen 20 mg tablet 20 mg PO BEDTIME 30 Days Qty: 30 1RF meloxicam 15 mg tablet 15 mg PO DAILY 30 Days Qty: 30 1RF sertraline [Zoloft] 50 mg tablet 50 mg PO DAILY Qty: 90 1RF tramadol 50 mg tablet 50 mg PO Q8H PRN (Reason: severe pain (scale score 7-10)) Qty: 6 0RF Interventions: [place]-Suicide Risk Severity Scale Last Done: 05/14/23 23:02
[2023-05-14 23:55] LABS: Alanine Aminotransferase 18 U/L (0-40); Alkaline Phosphatase 70 U/L (39-117); Anion Gap 12 (12-20); Aspartate Amino Transferase 21 U/L (5-37); Bilirubin Total 0.4 mg/dL (0.0-1.0); Blood Urea Nitrogen 15 mg/dL (9-16); Carbon Dioxide 28 mmol/L (22-29); Chloride 106 mmol/L (96-108); Creatinine Clr Calc Pharmacy 98.5; Estimated Glomerular Filt Rate > 60; Glucose Random 113 mg/dL (60-115); Potassium 3.6 mmol/L (3.3-5.1); Sodium 142 mmol/L (135-145)
--- NOTE | 2023-05-15 00:04 | PC.NURSE ---
Provider with pt.
[2023-05-15 07:54] VITALS: BP 132/81; PULSE 74; RESP 14; TEMP 36.4; O2SAT 97
[2023-05-15 09:06] LABS: Appearance Urine Turbid; Color Urine Yellow; Glucose Urine UA Negative (Negative); Leukocyte Esterase Urine Trace (Negative); Nitrite Urine Negative (Negative); PH 7.5 (5.0-9.0); UMIC TRIGGER UACC YES; Urine Blood Large (3+) (Negative); Urine Ketones Negative (Negative); Urine Protein Negative (Neg-Trace)
[2023-05-15 09:08] LABS: Bacteria Urine None Seen (None Seen); Hyaline Casts Urine 0-2 /LPF (0-2); RBC Urine >20 /HPF (0-2); Squamous Epithelial Cell Urine 0-2 /HPF (0-2); WBC Urine 0-5 /HPF (0-5)
--- NOTE | 2023-05-15 09:52 | PHA.MEDREC ---
Pharmacy Consult ? Medication Reconciliation Pharmacy has completed the medication reconciliation.PHARMACY HAS REVIEWED MED REC DONE BY NURSING
--- NOTE | 2023-05-15 10:05 | PC.NURSE ---
Patient is alert and able to make needs known. Patient was agreeable with plan to discharge. No SI/HI/AH/VH. Patient discharged with belongings.
--- NOTE | 2023-05-16 10:22 | MHC.CARE ---
RAD Team completed a referral for [facility] RAD Team to f/u with PHP for timeline for referral
== END 2023-05-15 10:06 | disposition home or self-care (01) ==
PROVIDERS: Emergency Provider Student in an Organized Health Care Education/Training Program
DX: F33.1 Major depressive disorder, recurrent, moderate (principal); F14.10 Cocaine abuse, uncomplicated; R35.0 Frequency of micturition; Z71.51 Drug abuse counseling and surveillance of drug abuser; Z11.52 Encounter for screening for COVID-19; Z20.822 Contact with and (suspected) exposure to COVID-19; Z79.899 Other long term (current) drug therapy
CPT/HCPCS: 80053; 80307; 81001; 85025; 87635; 99284; S9485

== ENCOUNTER 2023-05-24 00:39 | Emergency (ER) | payer OTHER, SELFPAY ==
--- NOTE | ~2023-05-24 | CT_ITS ---
EXAMINATION: CT ABDOMEN AND PELVIS WITHOUT CONTRAST CLINICAL INFORMATION: Renal colic, history of stones COMPARISON: 06/03/2022 TECHNIQUE: Multidetector volumetric imaging was performed from the superior aspect of the liver through the pubic symphysis. Sagittal and coronal reformatted images were obtained on the technologist's workstation. This CT examination was performed using dose optimization techniques as appropriate, variously including the following: *Automated exposure control *Adjustment of mA and/or kV according to patient size (this includes techniques or standardized protocols for targeted exams where dose is matched to indication/reason for exam; i.e. extremities or head) *Use of iterative reconstruction technique DLP: 603 mGy-cm FINDINGS: LUNG BASES: The visualized lung bases are unremarkable. LIVER, GALLBLADDER, AND BILIARY TREE: The liver is normal in size, shape, and attenuation. No focal hepatic lesion or biliary ductal dilatation is identified on this noncontrast exam. Gallbladder appears relatively contracted. PANCREAS: Unremarkable. SPLEEN: Unremarkable. ADRENAL GLANDS: Unremarkable. KIDNEYS AND URETERS: There is a calculus measuring 8 mm in length in the mid right ureter with mild to moderate hydronephrosis. No left-sided hydronephrosis or obstructing calculus. Few scattered calculi are present in each kidney measuring up to 4 mm on the left. Right-sided perinephric stranding noted. BLADDER: Unremarkable. GASTROINTESTINAL TRACT: No evidence of bowel obstruction or significant wall thickening. The appendix is unremarkable. No free fluid or free air is seen. ABDOMINAL WALL: No significant hernia is appreciated. LYMPH NODES: Normal. VASCULAR: Unremarkable. PELVIC VISCERA: Unremarkable. OSSEOUS STRUCTURES: Bilateral L5 pars defects with grade 1 anterolisthesis of L5 on S1. CT/CT abdomen pelvis wo IV con IMPRESSION: 1. Mid right ureteral calculus measuring 8 mm with mild to moderate hydronephrosis. 2. Several scattered bilateral renal calculi.
[2023-05-24 00:44] VITALS: BP 150/98; PULSE 68; RESP 18; TEMP 36.6; O2SAT 99; BMI 31.9
[2023-05-24 01:14] LABS: Basophils Absolute Auto 0.1 X10*3/uL (0.0-0.2); Basophils Percent Auto 0.5 % (0-2); Eosinophils Absolute Auto 0.5 X10*3/uL (0.0-0.4); Hematocrit 42.8 % (42.0-52.0); Hemoglobin 15.2 g/dl (14.0-18.0); Imm Gran Abs Auto 0.05 X10*3/uL (0.00-0.03); Imm Gran Pct Auto 0.3 % (0.0-0.4); Lymphocytes Absolute Auto 3.2 X10*3/uL (1.2-4.9); Lymphocytes Percent Auto 20.2 % (20-40); MANUAL DIFF FLAG SCAN; Mean Corpuscular HGB Conc 35.5 g/dl (31.0-36.0); Mean Corpuscular Hemoglobin 32.9 pg (27.0-33.0); Mean Corpuscular Volume 92.6 fL (80.0-98.0); Mean Platelet Volume 8.8 fL (9.4-12.4); Monocytes Absolute Auto 1.7 X10*3/uL (0.1-1.2); Monocytes Percent Auto 10.9 % (2-11); Neutrophils Absolute Auto 10.3 x10*3/uL (2.0-8.3); Neutrophils Percent Auto 65.1 % (45-73); Platelet Count 281 X10*3/uL (160-400); Red Blood Count 4.62 X10*6/uL (4.60-5.80); Red Cell Distribution Width 11.4 % (11.0-16.0); SCAN SMEAR FLAG 1; White Blood Count 15.9 X10*3/uL (4.8-10.8)
[2023-05-24 01:31] LABS: SLIDE REVIEW VERIFIED
[2023-05-24 01:37] LABS: Alanine Aminotransferase 21 U/L (0-40); Albumin Level 4.4 g/dL (3.5-5.0); Alkaline Phosphatase 69 U/L (39-117); Anion Gap 14 (12-20); Aspartate Amino Transferase 28 U/L (5-37); Bilirubin Total 0.5 mg/dL (0.0-1.0); Blood Urea Nitrogen 11 mg/dL (9-16); Calcium 10.6 mg/dL (8.4-10.2); Carbon Dioxide 24 mmol/L (22-29); Chloride 104 mmol/L (96-108); Estimated Glomerular Filt Rate 53; Glucose Random 96 mg/dL (60-115); Potassium 4.4 mmol/L (3.3-5.1); Sodium 138 mmol/L (135-145); Total Protein 7.8 g/dL (6.5-8.0)
--- NOTE | 2023-05-24 01:41 | ED.ABDPAIN ---
HPI - Abdominal Pain General Chief Complaint: Abdominal Pain Stated Complaint: Flank Pain Time Seen by Provider: 05/24/23 01:41 Source: patient Mode of arrival: ambulatory Limitations: no limitations History of Present Illness HPI narrative: Patient with history of kidney stone last episode was in 05/2022 which came out of its own comes here for similar pain on the right flank area started few hours ago associated with nausea pain is sharp in character radiating down to the lower abdomen no testicular pain no hematuria no urinary complaint Related Data Previous Rx's Medication Instructions Recorded baclofen 20 mg tablet 20 mg PO BEDTIME 30 days #30 tabs 04/16/23 clonidine HCl 0.1 mg tablet 0.1 mg PO BEDTIME 90 days #90 tabs 04/16/23 meloxicam 15 mg tablet 15 mg PO DAILY 30 days #30 tabs 04/16/23 sertraline 50 mg tablet (Zoloft) 50 mg PO DAILY #90 tabs 04/16/23 ondansetron 4 mg disintegrating 4 mg PO Q6-8H PRN nausea and 05/24/23 tablet vomiting #7 tabs oxycodone 5 mg tablet 5 mg PO Q6H PRN pain #20 tabs 05/24/23 tamsulosin 0.4 mg capsule (Flomax) 0.4 mg PO BEDTIME #20 caps 05/24/23 Allergies Allergy/AdvReac Type Severity Reaction Status Date / Time No Known Allergies Allergy Verified 05/14/23 22:28 [No Known Allergies*] Review of Systems Review of Systems Yes all other systems are reviewed and are negative [facility] Past Medical History Medical History (Updated 05/24/23 @ 03:28 by Pascual Guzman MD) Kidney stone SANJUANA (generalized anxiety disorder) MDD (major depressive disorder), recurrent episode, moderate Asthma Polysubstance abuse Family History Family History Mother No problems noted. Father DMII (diabetes mellitus, type 2) Brother No problems noted. Brother No problems noted. Brother No problems noted. Sister No problems noted. Sister No problems noted. Sister No problems noted. Son No problems noted. Son No problems noted. Social History Household Members: None Household Members Other:: Rico lives on his own Housing: Apartment Alcohol intake: former Year quit: 2019 Patient Tobacco Use Status: Never used Tobacco Smoked in Last 30 Days: No e-Cigarette/Vaping Use: Never Used Second Hand Smoke Exposure: No Use of substances other than those prescribed or required for medical reasons: No Substance Use Type: Crack/Cocaine and Unknown Advance Directives: No Advance Directives Information Provided: Yes service: No Current occupational status: employed Current occupation: [employer] Cognitive needs: No Hearing needs: No Vision needs: No Physical Exam ED Vital Signs: Vital Signs - 24 hr 05/24/23 00:44 05/24/23 02:48 Temperature 97.8 F 98.0 F Pulse Rate 68 75 Respiratory Rate 18 18 Blood Pressure 150/98 H 127/63 Pulse Oximetry 99 96 Oxygen Delivery Method Room Air Room Air BMI result Body Mass Index 31.9 Appearance: Alert. Oriented X3. In moderate distress. Eyes: PERRLA, No Nystagmus ENT: Pharynx normal. Oral Mucosa moist Neck: Normal inspection. Neck supple. CVS: Normal heart rate and rhythm. Pulses normal. Respiratory: No respiratory distress. Equal air entry bilateral, no wheezing/rales/rhonchi Abdomen: Soft and nontender. Bowel sounds are present, no mass palpable, R CVA tenderness + Skin: Skin warm and dry. Normal skin color. Normal skin turgor. Extremities: No lower extremity edema. No calf tenderness Neuro: Oriented X 3. Medical Decision Making Medical Decision Making [facility] Narrative: Patient with obstructive right distal ureteric stone about 5 mm feeling much better after pain medication patient with follow-up with urologist will give pain medication Flomax Differential Diagnosis Differential Diagnoses: The differential diagnosis associated with the presentation includes Kidney stone/UTI Lab Data [facility] Lab Attestation statement: I reviewed the patient's lab results. 05/24/23 01:09 05/24/23 01:09 Labs: Lab Results 05/24/23 05/24/23 Range/Units 01:09 02:48 WBC 15.9 H (4.8-10.8) X10*3/uL RBC 4.62 (4.60-5.80) X10*6/uL Hgb 15.2 (14.0-18.0) g/dl Hct 42.8 (42.0-52.0) % MCV 92.6 (80.0-98.0) fL MCH 32.9 (27.0-33.0) pg MCHC 35.5 (31.0-36.0) g/dl RDW 11.4 (11.0-16.0) % Plt Count 281 (160-400) X10*3/uL MPV 8.8 L (9.4-12.4) fL Immature Gran % (Auto) 0.3 (0.0-0.4) % Neut % (Auto) 65.1 (45-73) % Lymph % (Auto) 20.2 (20-40) % [place] % (Auto) 10.9 (2-11) % Eos % (Auto) 3.0 (0-4) % Baso % (Auto) 0.5 (0-2) % Lymph # (Auto) 3.2 (1.2-4.9) X10*3/uL [place] # (Auto) 1.7 H (0.1-1.2) X10*3/uL Eos # (Auto) 0.5 H (0.0-0.4) X10*3/uL Baso # (Auto) 0.1 (0.0-0.2) X10*3/uL Abs Immat Gran (auto) 0.05 H (0.00-0.03) X10*3/uL Absolute Neuts (auto) 10.3 H (2.0-8.3) x10*3/uL Absolute Nucleated RBC 0.000 (0.0-0.012) X10*3/uL Nucleated RBC % (auto) 0.0 (0.0-0.2) /100WBC Smear Tech's Comments VERIFIED Sodium 138 (135-145) mmol/L Potassium 4.4 D (3.3-5.1) mmol/L Chloride 104 (96-108) mmol/L Carbon Dioxide 24 (22-29) mmol/L Anion Gap 14 (12-20) BUN 11 (9-16) mg/dL Creatinine 1.49 H (0.5-1.4) mg/dL Estim Creat Clear Calc 79.0 Estimated GFR 53 Random Glucose 96 (60-115) mg/dL Calcium 10.6 H D (8.4-10.2) mg/dL Total Bilirubin 0.5 (0.0-1.0) mg/dL AST 28 (5-37) U/L ALT 21 (0-40) U/L Alkaline Phosphatase 69 (39-117) U/L Total Protein 7.8 (6.5-8.0) g/dL Albumin 4.4 (3.5-5.0) g/dL Lipase 36 (8-78) U/L Urine Color Yellow Urine Appearance Clear Urine pH 6.0 (5.0-9.0) Ur Specific [place] <= 1.005 (1.005-1.025) Urine Protein Negative (Neg-Trace) mg/dL Urine Glucose (UA) Negative (Negative) mg/dL Urine Ketones Negative (Negative) mg/dL Urine Blood Large (3+) H (Negative) Urine Nitrite Negative (Negative) Ur Leukocyte Esterase Negative (Negative) Urine RBC >20 H (0-2) /HPF Urine WBC 0-5 (0-5) /HPF Ur Squamous Epith Cells 0-2 (0-2) /HPF Urine Bacteria None Seen (None Seen) Hyaline Casts 0-2 (0-2) /LPF Independent Interpretation I performed an independent interpretation of an: CT Scan Radiology Impression Discussion of test interpretation with radiology: I have reviewed the radiologist's reading. Radiologist Impression: CT/CT abdomen pelvis wo IV con IMPRESSION: 1. Mid right ureteral calculus measuring 8 mm with mild to moderate hydronephrosis. 2. Several scattered bilateral renal calculi. Medications Administered Discontinued Medications Generic Name Dose Route Start Last Admin Trade Name Freq PRN Reason Stop Dose Admin Sodium Chloride 1,000 mls @ 999 mls/hr 05/24/23 01:41 05/24/23 01:49 Ns IV 05/24/23 02:41 999 mls/hr .Q1H1M ONE Administration Ketorolac Tromethamine 30 mg 05/24/23 01:41 05/24/23 01:49 Ketorolac Tromethamine 30 Mg/Ml Vial IVPUSH 05/24/23 01:42 30 mg ONCE ONE Administration Morphine Sulfate 4 mg 05/24/23 01:41 05/24/23 01:49 Morphine Sulfate 4 Mg/Ml Cartridge IVPUSH 05/24/23 01:42 4 mg ONCE ONE Administration Protocol Ondansetron HCl 4 mg 05/24/23 01:41 05/24/23 01:49 Ondansetron Hcl 4 Mg/2 Ml Vial IVPUSH 05/24/23 01:42 4 mg ONCE ONE Administration Oxycodone HCl 10 mg 05/24/23 03:20 05/24/23 03:34 Oxycodone Hcl Immed Release 5 Mg Tablet PO 05/24/23 03:21 10 mg ONCE ONE Administration Tamsulosin HCl 0.4 mg 05/24/23 02:12 05/24/23 02:26 Tamsulosin Hcl 0.4 Mg Capsule PO 05/24/23 02:13 0.4 mg ONCE ONE Administration Discharge Plan Discharge Clinical Impression: Calculus of kidney Patient Disposition: Home, Self-Care Instructions: Kidney Stones (ED) Additional Instructions: Drink plenty of fluids Take Flomax daily until stone passes Pain medication as prescribed Follow-up with urologist if pain continues Prescriptions: New oxycodone 5 mg tablet 5 mg PO Q6H PRN (Reason: pain) Qty: 20 0RF Rx Instructions: Partial Fill upon patient request. tamsulosin [Flomax] 0.4 mg capsule 0.4 mg PO BEDTIME Qty: 20 0RF ondansetron 4 mg tablet,disintegrating 4 mg PO Q6-8H PRN (Reason: nausea and vomiting) Qty: 7 0RF No Action clonidine HCl 0.1 mg tablet 0.1 mg PO BEDTIME 90 Days Qty: 90 1RF baclofen 20 mg tablet 20 mg PO BEDTIME 30 Days Qty: 30 1RF meloxicam 15 mg tablet 15 mg PO DAILY 30 Days Qty: 30 1RF sertraline [Zoloft] 50 mg tablet 50 mg PO DAILY Qty: 90 1RF Referrals: Meño Grissom MD [Physician] - 2 days Stand Alone Forms: Work/School Release Interventions: ED Discharge Assessment Last Done: 05/24/23 03:41 Discharge Date/Time: 05/24/23 03:41
[2023-05-24 01:46] LABS: Lipase 36 U/L (8-78)
[2023-05-24] MEDS: ondansetron HCL 4 MG/2 ML VIAL IVPUSH (01:49)
[2023-05-24] MEDS: Ketorolac Tromethamine 30 MG/ML VIAL IVPUSH (01:49)
[2023-05-24] MEDS: 0.9 % Sodium Chloride 1,000 ML 999 ML IV (01:49)
[2023-05-24] MEDS: Morphine Sulfate 4 MG/ML CARTRIDGE IVPUSH (01:49)
--- NOTE | 2023-05-24 02:00 | PC.NURSE ---
IV placed in left forearm, medicated per Mar.
[2023-05-24] MEDS: Tamsulosin HCL 0.4 MG CAPSULE PO (02:26)
--- NOTE | 2023-05-24 02:31 | PC.NURSE ---
pt taken to Ct Scan
[2023-05-24 02:48] VITALS: BP 127/63; PULSE 75; RESP 18; TEMP 36.7; O2SAT 96
[2023-05-24 02:55] LABS: Appearance Urine Clear; Color Urine Yellow; Glucose Urine UA Negative (Negative); Leukocyte Esterase Urine Negative (Negative); Nitrite Urine Negative (Negative); Specific Gravity - Urine <= 1.005 (1.005-1.025); UMIC TRIGGER UACC YES; Urine Blood Large (3+) (Negative); Urine Ketones Negative (Negative); Urine Protein Negative (Neg-Trace)
[2023-05-24 03:30] LABS: Bacteria Urine None Seen (None Seen); Hyaline Casts Urine 0-2 /LPF (0-2); RBC Urine >20 /HPF (0-2); Squamous Epithelial Cell Urine 0-2 /HPF (0-2); WBC Urine 0-5 /HPF (0-5)
[2023-05-24] MEDS: oxyCODONE HCl Immed Release 5 MG TABLET 10 MG PO (03:34)
--- NOTE | 2023-05-24 03:40 | PC.NURSE ---
Medicated per mar, provide education on diet and reviewed discharge instructions with pt. pt verbalized understanding, no sign of distress upon discharge.
== END 2023-05-24 03:41 | disposition home or self-care (01) ==
PROVIDERS: Emergency Provider Internal Medicine; PCP Physician Assistant
DX: N13.2 Hydronephrosis with renal and ureteral calculous obstruction (principal); F17.200 Nicotine dependence, unspecified, uncomplicated; F19.10 Other psychoactive substance abuse, uncomplicated; Z87.442 Personal history of urinary calculi
CPT/HCPCS: 36415; 74176; 80053; 81001; 83690; 85025; 96374; 96375; 99284; 99285; J1885; J2270; J2405

== ENCOUNTER 2023-05-26 13:05 | Outpatient (RCR) | payer OTHER, SELFPAY ==
--- NOTE | 2023-05-26 17:23 | MHC.PT.EP ---
[facility] [place] Office [place] Office [address] [phone] F: [phone] F: [phone] F: [phone] F: [phone] Physical Therapy Plan of Care Date of Evaluation: 05/26/23 Date of Surgery: Diagnosis: thoracolumbar and lumbosacral intervertebral disc disorder ( Dx) interverterbral disc disorder with lumbar radiculopathy ( Dx) Bilateral L5 pars defects with grade 1 anterolisthesis of L5 on S1 (on imaging) Assessment: Patient is a pleasant 38 y.o. male who is referred to PT by Carlos Hernandez PA-C with Dx of thoracolumbar and lumbosacral intervertebral disc disorder and interverterbral disc disorder with lumbar radiculopathy. On CT scan and x-ray imaging, bilateral L5 pars defects with grade 1 anterolisthesis of L5 on S1. Patient impairments include pain, limited lumbar ROM, weakness in hips and core. Patient current functional limitations are sleeping (difficulty getting comfortable), prolonged standing, prolonged sitting, squat/bend. Patient will benefit from skilled PT to address aforementioned impairments and functional limitations to meet established goals. Frequency and Duration: The patient will be seen 1-2x/week for 4 weeks Short Term Goals: 2 weeks Patient demonstrates consistency and independence with HEP to self manage symptoms. Prison Goals: 4 weeks Patient presents with increased lumbar flexion 90 degrees to be able to sleep without discomfort. Patient presents with incrased bilateral hip abduction strength 4+/5 to be able to stand for 1 hr at work. Treatment Plan: Modalities to reduce pain, spasms and effusion. Manual therapy to restore motion and function. Therapeutic exercise to improve strength and flexibility. Neuromuscular re-education for posture and balance. Therapeutic activities to return to functional activities of daily living. Electronically signed by: Malaika Leach, PT, DPT Please sign and return to therapist. Thank you for your referral.
--- NOTE | 2023-08-05 14:23 | MHC.PT.DC ---
[facility] [place] [facility] [place] [facility] [employer] [facility] [address] Gayatri Santana [address] [phone] F: [phone] F: [phone] F: [phone] F: [phone] Physical Therapy Discharge Report Diagnosis: thoracolumbar and lumbosacral intervertebral disc disorder (MD Augustine) interverterbral disc disorder with lumbar radiculopathy (MD Augustine) Bilateral L5 pars defects with grade 1 anterolisthesis of L5 on S1 (on imaging) Date of Surgery: Date of Evaluation: 05/26/23 Date of Discharge: 08/05/23 Treatments to Date: 1 Cancellations to Date: 0 No Shows to Date: 4 Discharge Status: Visit Non-compliance Discharge Summary: Rico only showed to initial evaluation for physical therapy and no showed to all PT sessions. He was given HEP and education on proper bending and lifting during his evaluation. I am unable to determine effectiveness of PT due pt only being seen for 1 visit. He is discharged from PT at this time. Electronically signed by: Malaika Leach, PT, DPT Please sign and return to therapist. Thank you for your referral.
== END 2023-08-05 14:24 | disposition home or self-care (01) ==
LOC: HO.PT 13:05
PROVIDERS: PCP Physician Assistant; Visit Provider Physician Assistant
DX: M51.9 Unspecified thoracic, thoracolumbar and lumbosacral intervertebral disc disorder (principal); M51.16 Intervertebral disc disorders with radiculopathy, lumbar region
CPT/HCPCS: 97110; 97161; 97535

== ENCOUNTER 2023-05-28 09:15 | Outpatient (RCR) | payer OTHER, MEDICAID, SELFPAY ==
--- NOTE | 2023-05-27 13:00 | PC.NURSE ---
PHP staff Kristen stated Rico left early as he has a dentist appointment today in addition to feeling tired from working the night before.
--- NOTE | 2023-05-27 14:24 | PM.EVENT ---
Event Note Date of Service: 05/27/23 Event Note: Rico was scheduled to see this provider for intake today, however he left the program early due to feeling tired and also said he had an appointment to get to. Will see him on next clinic day (). Time Spent With Patient Time: Total time managing care of this patient today ____ minutes.
[2023-05-28 11:34] VITALS: BP 128/78; PULSE 68; TEMP 36.5
--- NOTE | 2023-05-28 11:34 | PC.ADMIT ---
Unable to complete assessment 05/27/23 as patient left early for a dental appointment. Patient is a 38 year old male who was referred to PHP by the care team d/t sxs of depression and poly-substance use. Patient report using hallucinogen PCP daily or every other day, cocaine and ETOH on the weekends. He denied any sxs of withdrawal from any substances. See below for more information on substance use. He reports many stresses including grieving the of his brother of heroin overdose, issues with his ex regarding seeing his son and facing possible eviction. Patient is currently working overnights and is looking to take [facility] to work on his mental health and substance issues. Rico is alert and oriented x4. He presented with depressed mood and affect. He denied SI of HI. He was given a copy of his safety plan if needed. Medications reconciled with patient and patient's pharmacy. He reports he has not taken his Zoloft or Clonidine for the past 2 weeks. He has issues with compliance. Medication education provided. He reports he was in the ER recently and was dx with kidney stones and was given prescription medication including Oxycodone IR 5 mg every 6 hours for pain #20 on 05/24/23. He reports taking as prescribed.
[2023-05-28 11:35] VITALS: BMI 31.0
--- NOTE | 2023-05-29 09:27 | PC.NURSE ---
Rico did not show up to the program this morning. I called him and left a message to call me back. I also called his emergency contact Zita and left her a message to call me back.
--- NOTE | 2023-05-29 10:08 | PC.NURSE ---
I spoke to Rico's emergency contact Zita and she stated he was too tired to come to the program today as he worked last night. I asked her to have him call me when he wakes up.
--- NOTE | 2023-05-29 18:41 | HO.PHP ---
The client's case was reviewed and opened in treatment team.
--- NOTE | 2023-05-30 08:55 | PC.NURSE ---
Rico called and left a message 05/29/23 apologizing for missing program yesterday stating he was exhausted and his muffler fell off and is trying to find a way to fix it.
--- NOTE | 2023-05-30 16:32 | HO.PHP ---
[facility] staff received a message from Rico stating he is unable to make it to program today and wanted the team to call back to see if there are other recovery options. [facility] staff members reached out and left him two VM. [facility] staff members are awaiting a phone call back from Rico at this time.
--- NOTE | 2023-06-02 15:36 | HO.PHP ---
PHP staff member left Rioc a VM in which he did not return the phone call. PHP staff member then reached out to his emergency contact, Zita, who noted that she hadn't spoken to Rico since Friday, in which she was under the impression that this program was not beneficial for him and he was seeking out other supports. PHP staff member expressed that she has not heard back from Rico at this time and wants to check his safety. Zita noted that he is using again. PHP staff member explored if she could reach out to him to make sure he is safe and have him call. Zita was not comfortable with doing so since he does not respond well to her when she is trying to support around sobriety. PHP staff member was receptive. PHP staff member reached out to Rico again and left a VM stating if he does not call back within 15 minutes a wellness check will have to be completed. Rico contacted the clinician back around 2:55 PM, in which he stated that he did not benefit from the program and did not like the group setting. PHP staff member was receptive. Rico asked for one on one resources. [facility] staff provided him with [facility], [facility], and encouraged him to reach out to [facility] for a disaster recovery analyst. Rico was receptive and collected the numbers to those places. Rico disclosed he will reach back out to the program if he is struggling. PHP staff member was receptive. [facility] staff assessed for safety. Rico reported no concerns around SI, plan or intent.
== END 2023-05-28 23:59 | disposition left against medical advice (07) ==
LOC: HO.PHPA 09:15
PROVIDERS: Visit Provider Psychiatry & Neurology Psychiatry
DX: F33.2 Major depressive disorder, recurrent severe without psychotic features (principal); F41.1 Generalized anxiety disorder; F43.9 Reaction to severe stress, unspecified; F16.99 Hallucinogen use, unspecified with unspecified hallucinogen-induced disorder; F14.20 Cocaine dependence, uncomplicated; F10.20 Alcohol dependence, uncomplicated
CPT/HCPCS: 90791; 90853

== ENCOUNTER 2023-07-16 16:37 | Emergency (ER) | payer OTHER, SELFPAY ==
--- NOTE | ~2023-07-16 | CT_ITS ---
EXAMINATION: CT ABDOMEN AND PELVIS WITHOUT CONTRAST CLINICAL INFORMATION: Right-sided flank COMPARISON: CT abdomen pelvis 05/24/2023 TECHNIQUE: Multidetector volumetric imaging was performed from the superior aspect of the liver through the pubic symphysis. Sagittal and coronal reformatted images were obtained on the technologist's workstation. This CT examination was performed using dose optimization techniques as appropriate, variously including the following: *Automated exposure control *Adjustment of mA and/or kV according to patient size (this includes techniques or standardized protocols for targeted exams where dose is matched to indication/reason for exam; i.e. extremities or head) *Use of iterative reconstruction technique DLP: 569 mGy-cm FINDINGS: LUNG BASES: The visualized lung bases are unremarkable. LIVER, GALLBLADDER, AND BILIARY TREE: The liver is normal in size, shape, and attenuation. No focal hepatic lesion or biliary ductal dilatation is present. The gallbladder is unremarkable with no evidence of radiopaque gallstones, gallbladder wall thickening, or obvious pericholecystic inflammatory changes. PANCREAS: Unremarkable. SPLEEN: Unremarkable. ADRENAL GLANDS: Unremarkable. KIDNEYS AND URETERS: Right: 2 or possibly 3 calculi are present at the right ureteral vesicle junction with the largest measuring about 5 mm in size. There is hydroureter and pelvocaliectasis present on the right. At the time of the prior study, an 8 mm obstructing calculus was present in the mid to distal ureter. There is a single 2 mm intrarenal nonobstructing calculus present on the right. No right renal masses are seen. Left: There is a 3 mm nonobstructing left upper pole renal calculus with a few other punctate densities in the mid to lower kidney. No hydronephrosis is present in the left ureter appears normal. No left renal masses. BLADDER: Unremarkable. GASTROINTESTINAL TRACT: The small and large bowel are unremarkable. The appendix is unremarkable. ABDOMINAL WALL: No significant hernia is appreciated. LYMPH NODES: Normal. VASCULAR: Unremarkable. PELVIC VISCERA: Unremarkable. OSSEOUS STRUCTURES: Scoliosis convex to the left. No bony destructive lesions are seen. CT/CT abdomen pelvis wo IV con IMPRESSION: 1. Right-sided hydronephrosis and hydroureter with 2 or possibly 3 calculi at the right ureteral vesicle junction with the largest measuring about 5 mm in size. In April, the patient had hydronephrosis is well with an 8 mm stone in the mid to distal ureter. 2. Bilateral small nonobstructing renal calculi. 3. Other incidental findings as described above. Fleischner guidelines were followed.
[2023-07-16 17:13] VITALS: BP 173/93; PULSE 71; RESP 18; TEMP 36.8; O2SAT 98; BMI 31.0
--- NOTE | 2023-07-16 17:14 | ED_ITS ---
HPI - General Adult General Chief complaint: Abdominal Pain Stated complaint: possible kidney stone, abd pain Time Seen by Provider: 07/16/23 18:58 History of Present Illness HPI narrative: Patient is a 38-year-old male who presents emergency department for evaluation of right flank pain radiating into the right lower abdomen and down to the groin. Onset was 2 hours prior to arrival. He reports a history of kidney stones in the past and that this feels similar to this. He states he was never seen by any urologist did he require any procedure, he believes that he may have passed the stone on his own. Does state that he has had intermittent feelings of dysuria but never such severe pain as he had experienced in the past. He reports severe pain to the right flank, dysuria and nausea at this time. He denies any fevers, chills, vomiting, hematuria, testicular pain, penile discharge. Related Data Previous Rx's Medication Instructions Recorded baclofen 20 mg tablet 20 mg PO BEDTIME 30 days #30 tabs 04/16/23 clonidine HCl 0.1 mg tablet 0.1 mg PO BEDTIME 90 days #90 tabs 04/16/23 meloxicam 15 mg tablet 15 mg PO DAILY 30 days #30 tabs 04/16/23 sertraline 50 mg tablet (Zoloft) 50 mg PO DAILY #90 tabs 04/16/23 ondansetron 4 mg disintegrating 4 mg PO Q6-8H PRN nausea and 05/24/23 tablet vomiting #7 tabs oxycodone 5 mg tablet 5 mg PO Q6H PRN pain #20 tabs 05/24/23 tamsulosin 0.4 mg capsule (Flomax) 0.4 mg PO BEDTIME #20 caps 05/24/23 oxycodone 5 mg tablet 5 mg PO Q6H PRN pain #14 tabs 07/16/23 prednisone 20 mg tablet 40 mg (2 x 20 mg) PO DAILY #6 tabs 07/16/23 tamsulosin 0.4 mg capsule 0.4 mg PO BEDTIME #14 caps 07/16/23 Allergies Allergy/AdvReac Type Severity Reaction Status Date / Time No Known Allergies Allergy Verified 07/16/23 17:16 [No Known Allergies*] Review of Systems 2 Review of Systems: Yes all other systems are reviewed and are negative PMFSH Past Medical History Attestation statement: The following information was validated with the patient. Source: old records reviewed Onset Date is defined in the Problem List Problems that require an onset date and time if occurred within 24 hrs of arrival to the ED Aortic Dissection and Rupture; Neurologic impairment; Cardiopulmonary Arrest; Endotracheal Intubation; Insertion or Replacement of Mechanical Circulatory Assist Device Medical History Kidney stone SANJUANA (generalized anxiety disorder) Asthma Polysubstance abuse MDD (major depressive disorder), recurrent episode, moderate Surgical History H/O eye surgery Family History Family History Mother No problems noted. Father DMII (diabetes mellitus, type 2) Brother No problems noted. Brother No problems noted. Brother No problems noted. Sister No problems noted. Sister No problems noted. Sister No problems noted. Son No problems noted. Son No problems noted. Social History Social History Household Members: None Household Members Other:: iRco lives on his own Housing: Apartment Alcohol intake: former Year quit: 2019 Patient Tobacco Use Status: Current everyday Tobacco user e-Cigarette/Vaping Use: Never Used Second Hand Smoke Exposure: No Substance Use Type: Crack/Cocaine and Unknown Advance Directives: No Advance Directives Information Provided: No service: No Current occupational status: employed Current occupation: [employer] Cognitive needs: No Hearing needs: No Vision needs: No Physical Exam ED Vital Signs: Vital Signs - 24 hr 07/16/23 17:13 07/16/23 20:57 Temperature 98.2 F Pulse Rate 71 80 Respiratory Rate 18 Blood Pressure 173/93 H 132/74 Pulse Oximetry 98 97 Oxygen Delivery Method Room Air Room Air BMI result Body Mass Index 31.0 Appearance: Alert.?Oriented to person, place and time. No acute distress.?Normal affect. Eyes: Pupils equal, round and reactive to light.? ENT: Pharynx normal.?? Neck: Normal inspection.? Neck supple.?? CVS: Heart sounds normal. Normal heart rate and rhythm.? Pulses normal.?? Respiratory: No respiratory distress.? Lung sounds clear to auscultation bilaterally?? Abdomen: Soft and non-tender. Normoactive bowel sounds. Right CVA tenderness?? Skin: Skin warm and dry.? Normal skin color.? Extremities: No lower extremity edema.? Neuro: Moves all extremities spontaneously. Sensation intact bilaterally. CN II- XII intact. No focal neuro deficits. Ambulates with normal steady gait. Course Course Course Narrative: RME:?38 yo male w/ hx of SANJUANA, MDD, nephrolithiasis here w/ with right flank pain radiating to right lower abdomen x2 hours. hx of stones, feels similar. endorses dysuria and nausea. denies hematuria, penile discharge. +right CVAT, ttp over RLQ plan for labs and CT tylenol and zofran given in triage. Full HPI, ROS and PE to be performed by the primary ED provider. Reevaluation(s) Reevaluation #1: No relief with Toradol, will trial morphine IV for pain. CT reveals a right- sided hydronephrosis and hydroureter with 2 or possibly 3 calculi at the right UVJ with the largest measuring 5 mm in size. Plan to re-evaluate after morphine and review urinalysis. Time: 20:36 Reevaluation #2: Pain improved with 2 doses of morphine, urinalysis is without evidence of infection. Discussed plan of care with patient, he would like to go home tonight follow up outpatient with Urology. We discussed strict return precautions, if his pain is unmanageable, he is having vomiting are unable to tolerate his medications and he should return for re-evaluation. He verbalizes understanding of this. Discharged home with prescriptions for Flomax, prednisone, and oxycodone. Time: 23:13 Medications Administered Discontinued Medications Generic Name Dose Route Start Last Admin Trade Name Freq PRN Reason Stop Dose Admin Acetaminophen 975 mg 07/16/23 17:16 07/16/23 17:19 Acetaminophen 325 Mg Tablet PO 07/16/23 17:17 975 mg ONCE ONE Administration Sodium Chloride 1,000 mls @ 999 mls/hr 07/16/23 19:15 07/16/23 21:37 Ns IV 07/16/23 20:15 Infused .Q1H1M LIONEL Infusion Ketorolac Tromethamine 15 mg 07/16/23 19:04 07/16/23 19:22 Ketorolac Tromethamine 15 Mg/Ml Vial IVPUSH 07/16/23 19:05 15 mg ONCE ONE Administration Morphine Sulfate 4 mg 07/16/23 20:04 07/16/23 20:14 Morphine Sulfate 4 Mg/Ml Cartridge IVPUSH 07/16/23 20:05 4 mg ONCE ONE Administration Protocol Morphine Sulfate 4 mg 07/16/23 22:02 07/16/23 22:13 Morphine Sulfate 4 Mg/Ml Cartridge IVPUSH 07/16/23 22:03 4 mg ONCE ONE Administration Protocol Ondansetron HCl 4 mg 07/16/23 17:15 07/16/23 17:19 Ondansetron Odt 4 Mg Tab.Rapdis TRANSLINGU 07/16/23 17:16 4 mg ONCE ONE Administration Ondansetron HCl 4 mg 07/16/23 19:04 07/16/23 19:22 Ondansetron Hcl 4 Mg/2 Ml Vial IVPUSH 07/16/23 19:05 4 mg ONCE ONE Administration Tamsulosin HCl 0.4 mg 07/16/23 19:04 07/16/23 19:17 Tamsulosin Hcl 0.4 Mg Capsule PO 07/16/23 19:05 0.4 mg ONCE ONE Administration Medical Decision Making Medical Decision Making [facility] Narrative: Patient is a 38-year-old male presents emergency department for evaluation of right flank pain as per HPI. At the time my examination he appears significantly uncomfortable, examination is notable for right CVA tenderness. Will obtain CBC to evaluate for leukocytosis/ anemia, CMP and lipase to evaluate for abnormal electrolytes /abnormal renal function/ abnormal hepatic/biliary function, CT of the abdomen and pelvis to evaluate for pyelonephritis, ureteral calculi, obstructive calculi, hydronephrosis and Urinalysis. Patient received 1 L normal saline IV, Zofran IV for nausea, Toradol IV for pain. Differential Diagnosis Differential Diagnoses: The differential diagnosis associated with the presentation includes (As noted above) Admission/Observation Consideration of admission/observation: Escalation of care including admission/observation considered (See narrative of in course narrative for further details) Lab Data [facility] Lab Attestation statement: I reviewed the patient's lab results. CBC is without leukocytosis or anemia. BMP is overall unremarkable, renal function is at baseline. Urinalysis without evidence of intection 07/16/23 17:50 07/16/23 17:50 Labs: Lab Results 07/16/23 07/16/23 Range/Units 17:50 20:31 WBC 7.9 (4.8-10.8) X10*3/uL RBC 4.81 (4.60-5.80) X10*6/uL Hgb 15.7 (14.0-18.0) g/dl Hct 44.2 (42.0-52.0) % MCV 91.9 (80.0-98.0) fL MCH 32.6 (27.0-33.0) pg MCHC 35.5 (31.0-36.0) g/dl RDW 11.6 (11.0-16.0) % Plt Count 295 (160-400) X10*3/uL MPV 8.9 L (9.4-12.4) fL Immature Gran % (Auto) 0.4 (0.0-0.4) % Neut % (Auto) 58.1 (45-73) % Lymph % (Auto) 27.7 (20-40) % Emmet % (Auto) 10.0 (2-11) % Eos % (Auto) 3.3 (0-4) % Baso % (Auto) 0.5 (0-2) % Lymph # (Auto) 2.2 (1.2-4.9) X10*3/uL Emmet # (Auto) 0.8 (0.1-1.2) X10*3/uL Eos # (Auto) 0.3 (0.0-0.4) X10*3/uL Baso # (Auto) 0.0 (0.0-0.2) X10*3/uL Abs Immat Gran (auto) 0.03 (0.00-0.03) X10*3/uL Absolute Neuts (auto) 4.6 (2.0-8.3) x10*3/uL Absolute Nucleated RBC 0.000 (0.0-0.012) X10*3/uL Nucleated RBC % (auto) 0.0 (0.0-0.2) /100WBC Sodium 139 (135-145) mmol/L Potassium 4.4 (3.3-5.1) mmol/L Chloride 104 (96-108) mmol/L Carbon Dioxide 29 (22-29) mmol/L Anion Gap 10 L (12-20) BUN 12 (9-16) mg/dL Creatinine 1.18 (0.5-1.4) mg/dL Estim Creat Clear Calc 98.5 Estimated GFR > 60 Random Glucose 103 (60-115) mg/dL Calcium 10.2 (8.4-10.2) mg/dL Magnesium 2.1 (1.6-2.6) mg/dL Lipase 44 (8-78) U/L Urine Color Yellow Urine Appearance Clear Urine pH 6.5 (5.0-9.0) Ur Specific [place] 1.010 (1.005-1.025) Urine Protein Negative (Neg-Trace) mg/dL Urine Glucose (UA) Negative (Negative) mg/dL Urine Ketones Negative (Negative) mg/dL Urine Blood Moderate (2+) H (Negative) Urine Nitrite Negative (Negative) Ur Leukocyte Esterase Negative (Negative) Urine RBC >20 H (0-2) /HPF Urine WBC 0-5 (0-5) /HPF Ur Squamous Epith Cells 0-2 (0-2) /HPF Urine Bacteria None Seen (None Seen) Hyaline Casts 0-2 (0-2) /LPF Independent Interpretation I performed an independent interpretation of an: CT Scan Radiology Impression Discussion of test interpretation with radiology: I have reviewed the radiologist's reading. Radiologist Impression: CT/CT abdomen pelvis wo IV con IMPRESSION: 1. Right-sided hydronephrosis and hydroureter with 2 or possibly 3 calculi at the right ureteral vesicle junction with the largest measuring about 5 mm in size. In April, the patient had hydronephrosis is well with an 8 mm stone in the mid to distal ureter. 2. Bilateral small nonobstructing renal calculi. 3. Other incidental findings as described above. Fleischner guidelines were followed. External Record Review External record reviewed: Outpatient record and Other ([facility]) Prescription Management I considered prescription management with: Pain Medication Critical Care Time Critical Care Time Critical Care Time: Yes Total Critical Care Time: 35 Attestation: I personally attest to this critical care time spent taking care of the patient exclusive of all other billable procedures was approximately 35 minutes including initial evaluation of patient, ordering tests, CT interpretation, medical consultation, documentation, re-evaluation. Discharge Plan Discharge Clinical Impression: Hydronephrosis with ureteral calculus Patient Disposition: Home, Self-Care Instructions: Hydronephrosis (ED), Ureteral Stones (ED) Additional Instructions: You can take Tylenol 500 mg, 2 tablets (1,000mg) every 4-6 hours as needed for pain, but not to exceed 3 doses daily (3,000mg). Prescription for oxycodone was sent to your pharmacy, this is a narcotic medication, may make you drowsy, should not drive, drink alcohol, or work while taking this medication Prescription for Flomax was sent to your pharmacy, take this daily around bedtime. Take prednisone daily for 3 days, take with food to prevent stomach upset. Contact urology office to arrange for a follow-up visit. You may return back to emergency department with any new or worsening symptoms or concerns. Prescriptions: New tamsulosin 0.4 mg capsule 0.4 mg PO BEDTIME Qty: 14 0RF prednisone 20 mg tablet 40 mg PO DAILY Qty: 6 0RF oxycodone 5 mg tablet 5 mg PO Q6H PRN (Reason: pain) Qty: 14 0RF Rx Instructions: Partial Fill upon patient request. No Action oxycodone 5 mg tablet 5 mg PO Q6H PRN (Reason: pain) Qty: 20 0RF Rx Instructions: Partial Fill upon patient request. tamsulosin [Flomax] 0.4 mg capsule 0.4 mg PO BEDTIME Qty: 20 0RF ondansetron 4 mg tablet,disintegrating 4 mg PO Q6-8H PRN (Reason: nausea and vomiting) Qty: 7 0RF clonidine HCl 0.1 mg tablet 0.1 mg PO BEDTIME 90 Days Qty: 90 1RF Patient Comments: None times 2 weeks. baclofen 20 mg tablet 20 mg PO BEDTIME 30 Days Qty: 30 1RF meloxicam 15 mg tablet 15 mg PO DAILY 30 Days Qty: 30 1RF Patient Comments: Last use a week ago. sertraline [Zoloft] 50 mg tablet 50 mg PO DAILY Qty: 90 1RF Patient Comments: Last use 2 weeks ago. Referrals: Meño Grissom MD [Physician] - Carlos Hernandez PA-C [Primary Care Provider] - Interventions: ED Discharge Assessment Last Done: 07/16/23 23:27 Discharge Date/Time: 07/16/23 23:27
[2023-07-16] MEDS: Acetaminophen 325 MG TABLET 975 MG PO (17:19)
[2023-07-16] MEDS: Ondansetron ODT 4 MG TAB.RAPDIS TRANSLINGU (17:19)
[2023-07-16 17:54] LABS: MANUAL DIFF FLAG NO
[2023-07-16 17:55] LABS: Basophils Percent Auto 0.5 % (0-2); Eosinophils Absolute Auto 0.3 X10*3/uL (0.0-0.4); Eosinophils Percent Auto 3.3 % (0-4); Hematocrit 44.2 % (42.0-52.0); Hemoglobin 15.7 g/dl (14.0-18.0); Imm Gran Abs Auto 0.03 X10*3/uL (0.00-0.03); Imm Gran Pct Auto 0.4 % (0.0-0.4); Lymphocytes Absolute Auto 2.2 X10*3/uL (1.2-4.9); Lymphocytes Percent Auto 27.7 % (20-40); Mean Corpuscular HGB Conc 35.5 g/dl (31.0-36.0); Mean Corpuscular Hemoglobin 32.6 pg (27.0-33.0); Mean Corpuscular Volume 91.9 fL (80.0-98.0); Mean Platelet Volume 8.9 fL (9.4-12.4); Monocytes Absolute Auto 0.8 X10*3/uL (0.1-1.2); Neutrophils Absolute Auto 4.6 x10*3/uL (2.0-8.3); Neutrophils Percent Auto 58.1 % (45-73); Platelet Count 295 X10*3/uL (160-400); Red Blood Count 4.81 X10*6/uL (4.60-5.80); Red Cell Distribution Width 11.6 % (11.0-16.0); White Blood Count 7.9 X10*3/uL (4.8-10.8)
[2023-07-16 18:08] LABS: Anion Gap 10 (12-20); Blood Urea Nitrogen 12 mg/dL (9-16); Calcium 10.2 mg/dL (8.4-10.2); Carbon Dioxide 29 mmol/L (22-29); Chloride 104 mmol/L (96-108); Creatinine Clr Calc Pharmacy 98.5; Estimated Glomerular Filt Rate > 60; Glucose Random 103 mg/dL (60-115); Lipase 44 U/L (8-78); Magnesium 2.1 mg/dL (1.6-2.6); Potassium 4.4 mmol/L (3.3-5.1); Sodium 139 mmol/L (135-145)
[2023-07-16] MEDS: Tamsulosin HCL 0.4 MG CAPSULE PO (19:17)
[2023-07-16] MEDS: 0.9 % Sodium Chloride 1,000 ML 999 ML IV (19:22)
[2023-07-16] MEDS: Ketorolac Tromethamine 15 MG/ML VIAL IVPUSH (19:22)
[2023-07-16] MEDS: ondansetron HCL 4 MG/2 ML VIAL IVPUSH (19:22)
[2023-07-16] MEDS: Morphine Sulfate 4 MG/ML CARTRIDGE IVPUSH ×2 (20:14→22:13)
[2023-07-16 20:40] LABS: Appearance Urine Clear; Color Urine Yellow; Glucose Urine UA Negative (Negative); Leukocyte Esterase Urine Negative (Negative); Nitrite Urine Negative (Negative); PH 6.5 (5.0-9.0); UMIC TRIGGER UACC YES; Urine Blood Moderate (2+) (Negative); Urine Ketones Negative (Negative); Urine Protein Negative (Neg-Trace)
[2023-07-16 20:45] LABS: Bacteria Urine None Seen (None Seen); Hyaline Casts Urine 0-2 /LPF (0-2); RBC Urine >20 /HPF (0-2); Squamous Epithelial Cell Urine 0-2 /HPF (0-2); WBC Urine 0-5 /HPF (0-5)
[2023-07-16 20:57] VITALS: BP 132/74; PULSE 80; O2SAT 97
--- NOTE | 2023-07-16 23:00 | PC.NURSE ---
After 2 doses of morphine, pt reporting 6/10 pain. Pt stated he feels like he can go home, requested flomax.
== END 2023-07-16 23:27 | disposition home or self-care (01) ==
PROVIDERS: Physician Assistant Medical; Emergency Provider Emergency Medicine Emergency Medical Services; PCP Physician Assistant
DX: N13.2 Hydronephrosis with renal and ureteral calculous obstruction (principal); Z79.899 Other long term (current) drug therapy
CPT/HCPCS: 36415; 74176; 80048; 81001; 83690; 83735; 85025; 96361; 96374; 96375; 96376; 99284; J1885; J2270; J2405

== ENCOUNTER 2023-08-18 10:01 | Outpatient (AMB) | payer OTHER, SELFPAY ==
[2023-08-18 10:07] VITALS: BP 120/82; PULSE 80; O2SAT 98; BMI 30.3
--- NOTE | 2023-08-18 10:07 | A.OFFPC_ITS ---
Vital Signs 08/18/23 10:07 Height 5 ft 9 in Weight 205 lb 6 oz BMI 30.3 BP 120/82 Blood Pressure Location Lt brachial Position Sitting Pulse 80 Pulse Source Pulse Oximeter Pulse Oximetry (%) 98 Oxygen Delivery Method Room Air Intake Visit Reasons: [facility]/ kidney stone 07/16 Patient Assessment Coordinator Required: No Accompanied by: Self / Same As Patient Allergies No Known Allergies [No Known Allergies*] Allergy (Verified 08/18/23 10:28) Medication List - Last Reconciled 08/18/23 by Carlos Hernandez PA-C baclofen 20 mg PO BEDTIME 30 days clonidine HCl 0.1 mg PO BEDTIME 90 days meloxicam 15 mg PO DAILY 30 days ondansetron 4 mg PO Q6-8H PRN oxycodone 5 mg PO Q6H PRN sertraline (Zoloft) 50 mg PO DAILY tamsulosin 0.4 mg PO BEDTIME Tobacco use date assessed: 08/18/23 Dental Screening Dental Screen Date: 08/18/23 Did you have a dental visit in the last 12 months?: Yes Did you have a dental problem in the last 6 months where you did not have access to dental care?: No Was dental information given to patient?: Patient has dentist HPI [facility]/ kidney stone 07/16 HPI Details PATIENT IS A 38-YEAR-OLD MALE here today for an ER follow-up visit. Was seen at the ER in mid June 2023 for acute right-sided flank pain. CT of abdomen revealed right-sided hydronephrosis with 5 mm kidney stone. Patient was treated with pain medication, Flomax and fluids. He does have a history of kidney stones on multiple occasions. Currently patient doing much better and has no further pain. He was able to collect a stone in his interested in following up with the urologist. He also reports he has been under lot of stress and more depressed as of late. He reports he lost his job and is having transportation issues. He reports he recently had an episode of acute shortness of breath while smoking marijuana with a friend in a car. This only lasted a few minutes. This was thought to be an anxiety attack. Again he has been under a lot more stress as of late due to not having a car and a job. He does not regularly take sertraline or clonidine. He will start taking clonidine and sertraline on a more regular basis. [facility] Medical History (Updated 08/18/23 @ 10:50 by Carlos Hernandez PA-C) Kidney stone SANJUANA (generalized anxiety disorder) Asthma Polysubstance abuse MDD (major depressive disorder), recurrent episode, moderate Surgical History H/O eye surgery Family History Mother No problems noted. Father DMII (diabetes mellitus, type 2) Brother No problems noted. Brother No problems noted. Brother No problems noted. Sister No problems noted. Sister No problems noted. Sister No problems noted. Son No problems noted. Son No problems noted. Social History Household Members: None Household Members Other:: Rico lives on his own Housing: Apartment Alcohol intake: former Year quit: 2019 Patient Tobacco Use Status: Current everyday Tobacco user e-Cigarette/Vaping Use: Never Used Second Hand Smoke Exposure: No Substance Use Type: Crack/Cocaine and Unknown service: No Current occupational status: employed Current occupation: [employer] Cognitive needs: No Hearing needs: No Vision needs: No Questionnaire PHQ-9 Over the last 2 weeks, how often have you been bothered by any of the following problems? 1. Little interest or pleasure in doing things: nearly every day 2. Feeling down, depressed, or hopeless: nearly every day 3. Trouble falling or staying asleep, or sleeping too much: nearly every day 4. Feeling tired or having little energy: nearly every day 5. Poor appetite or overeating: nearly every day 6. Feeling bad about yourself - or that you are a failure or have let yourself or your family down: nearly every day 7. Trouble concentrating on things, such as reading the newspaper or watching television: nearly every day 8. Moving or speaking so slowly that other people could have noticed. Or the opposite - being so fidgety or restless that you have been moving around a lot more than usual: nearly every day 9. Thoughts that you would be better off or of hurting yourself in some way: more than half the days Total score: 26 Depression Screening Interpretation: Positive Depression Screening Follow-up: Existing condition, Change in Medication and Community Mental Health Worker F/U Depression Screening Done: Yes 90193 - PHQ-9 Billing: Yes Source: Developed by Drs. Abel Velasquez, Jennifer Rodríguez, Dionisio Driscoll and colleagues, with an educational john from [employer]. Thrive Questionnaire Date Thrive assessed: 08/18/23 I am a: Patient What is your living situation today?: I have a steady place to live Within the past 12 months, did the food you bought not last and you didn't have the money to get more?: Never true Within the past 12 months, did you worry whether your food would run out before you got money to buy more?: Never true Do you have trouble paying for medicines?: No Do you have trouble getting transportation to medical appointments?: No Do you have trouble paying your heating and electricity bill?: No Do you have trouble taking care of your child, family member or friend?: No Do you have trouble with day-to-day activities such as bathing, preparing meals, shopping, managing finances, etc.?: No Are you currently unemployed and looking for a job?: No Are you interested in more education?: No Please select the resources that you would like help with: None Currently or been in a relationship where the following occur: no concerns reported THRIVE Score: 0 AUDIT C Alcohol Use Questionnaire (AUDIT-C) 1. How often do you have a drink containing alcohol?: 2-3 times a week 2. How many drinks containing alcohol do you have on a typical day when you are drinking?: 3 or 4 3. How often do you have six or more drinks on one occasion?: Monthly Total Score: 6 SANJUANA-7 AMB Questionnaire SANJUANA-7 Date SANJUANA - 7 assessed: 08/18/23 Feeling nervous, anxious, or on edge: 3 = Nearly every day Not being able to stop or control worryin = Nearly every day Worrying too much about different things: 3 = Nearly every day Trouble relaxin = Nearly every day Being so restless that it is hard to sit still: 3 = Nearly every day Becoming easily annoyed or irritable: 3 = Nearly every day Feeling afraid as if something awful might happen: 3 = Nearly every day Total SANJUANA-7 score (0-4 normal; 5-9 mild; 10-14 moderate; 15-21 severe): 21 Source: Developed by Drs. Abel Velasquez, Jennifer Rodríguez, Dionisio Driscoll and colleagues, with an educational john from [employer]. SANJUANA-7 Assessment Billing SANJUANA-7 Assessment Tool: SANJUANA-7 Assessment 32080 Review of Systems Const Denies headache(s) Eyes Denies loss of vision ENT Denies vertigo, Denies dizziness, Denies headache(s) and Denies sore throat Card Denies chest pain, Denies leg edema and Denies lightheadedness Resp Denies cough, Denies hemoptysis and Denies wheezing GI Denies abdominal pain, Denies melena, Denies constipation, Denies diarrhea and Denies vomiting Denies dysuria, Denies urinary frequency and Denies urinary urgency Musc Denies arthralgias, Denies joint swelling, Denies numbness and Denies tingling Neuro Denies Abnormal speech present, Denies behavioral changes, Denies vertigo, Denies dizziness, Denies headache(s), Denies loss of vision, Denies memory loss, Denies numbness and Denies tingling Psych Denies anxiety, Denies behavioral changes, Denies depression, Denies memory loss and Denies panic attacks Daniel/Lymph Denies easy bleeding and Denies easy bruising Aller/Immun Denies wheezing Physical exam (Primary Care) Vital Signs: Last Vital Signs Pulse 80 08/18/23 10:07 BP 120/82 08/18/23 10:07 Pulse Ox 98 08/18/23 10:07 Oxygen Delivery Method Room Air 08/18/23 10:07 BMI result Body Mass Index 30.3 Tobacco/Smoking Status: Tobacco use Status Tobacco use date assessed 08/18/23 08/18/23 10:26 Patient Tobacco Use Status Current everyday Tobacco 08/18/23 10:07 e-Cigarette/Vaping Use Never Used 08/18/23 10:07 PHQ-9: PHQ-9 Score PHQ-9: Total score 26 08/18/23 10:35 Depression Screening Interpretation: Positive Depression Screening Follow-up: Existing condition, Change in Medication and Community Mental Health Worker F/U Thrive Assessment: Date of Thrive Assessment Date Thrive assessed 08/18/23 08/18/23 10:24 Currently or been in a relationship where the following occur: no concerns reported Const General: healthy appearing, no acute distress, alert and awake Nutritional Appearance: well nourished Orientation/consciousness: oriented to person, oriented to place and oriented to time HENMT Ears: TM's normal bilaterally General nose exam: Normal nasal mucous membranes and turbinates present Eyes Conjunctivae: conjunctivae normal Sclerae: sclerae normal Pupils: Equal, round and reactive pupils present Neck Neck: Yes no lymphadenopathy and Yes no JVD Thyroid: Thyroid normal Carotids: no bruits Resp Effort & Inspection: normal respiratory effort and not tachypneic Auscultation: no crackles, no rales, no rhonchi and no wheezes Cardio Rate: regular rate Rhythm: regular rhythm Heart sounds: no murmurs and normal S1 and S2 GI Palpation (GI): Soft to palpation, nontender, no hepatomegaly and no splenomegaly Auscultation: normal bowel sounds Skin General skin exam: no rashes or lesions noted and dry skin Neuro General: oriented to person, oriented to place and oriented to time Cranial nerves: Yes Equal, round and reactive pupils present Speech: No Abnormal speech present Gait exam (Neuro): Normal gait present Motor exam (neuro): no tremor noted Extrem Right upper extremity: full ROM Left upper extremity: full ROM Right lower extremity: full ROM; no edema Left lower extremity: full ROM; no edema Psych Mental Status: mental status grossly normal Speech and movement: Normal speech and movement present Affect: normal affect Attitude: cooperative Thought process: Normal thought process present Assessment and Plan Assessment & Plan (1) SANJUANA (generalized anxiety disorder): Code(s): F41.1 - Generalized anxiety disorder Plan: Patient's sanjuana 7 score positive for anxiety which has been existing condition for him. Has not been regularly taking SSRI therapy in his willing now to do so to cover his anxious symptoms. Will add on hydroxyzine to use on a p.r.n. basis for panic attacks. He is now willing to speak with a mental therapist (2) MDD (major depressive disorder), recurrent episode, moderate: Code(s): F33.1 - Major depressive disorder, recurrent, moderate Plan: Patient's PHQ-9 positive for major depressive disorder which has been existing condition for him again will start taking sertraline on a daily basis. He feels his depression will get better once he is able to land job and have more sense of purpose. Again will like to speak with a mental health therapist. (3) Heart palpitations: Code(s): R00.2 - Palpitations Plan: Likely related to his anxiety. Will send for EKG and chest x-ray. (4) SOB (shortness of breath): Code(s): R06.02 - Shortness of breath Plan: Likely had a panic attack in the setting of smoking marijuana. Again will send for EKG and chest x-ray. (5) Kidney stone: Code(s): N20.0 - Calculus of kidney Plan: Has had a long history of kidney stones. Recent ER evaluation showing a 5 mm stone. He would like to follow-up with Urology. Will start patient vitamin B6 Orders: Orders ECG 12 lead EKG 08/18/23 R00.2 - Palpitations XR chest 2V 08/18/23 R06.02 - Shortness of breath Comprehensive Daisy. Panel Fast 08/18/23 Z13.1 - Encounter for screening for diabetes mellitus Referrals Counseling Referral F41.1 - Generalized anxiety disorder Urology Referral N20.0 - Calculus of kidney Medications: New hydroxyzine HCl 25 mg PO ONCE 15 days 15 tabs 0RF F41.1 - Generalized anxiety disorder pyridoxine (vitamin B6) 50 mg PO DAILY 90 days 90 tabs 1RF N20.0 - Calculus of kidney Coding Level of Care Code Est Pt Level 4 (66115) Diagnoses SANJUANA (generalized anxiety disorder) F41.1 MDD (major depressive disorder), recurrent episode, moderate F33.1 Heart palpitations R00.2 SOB (shortness of breath) R06.02 Kidney stone N20.0 Additional Codes SANJUANA-7 Assessment Billing - SANJUANA-7 Assessment Tool: SANJUANA-7 Assessment 74407 ([id number])
== END 2023-08-18 11:57 | disposition home or self-care (01) ==
PROVIDERS: PCP Physician Assistant; Visit Provider Physician Assistant
DX: R06.02 Shortness of breath (principal); F33.1 Major depressive disorder, recurrent, moderate; F41.1 Generalized anxiety disorder; R00.2 Palpitations; N20.0 Calculus of kidney
CPT/HCPCS: 96127; 99214

== ENCOUNTER 2023-10-12 13:01 | Inpatient (IN) | payer OTHER, SELFPAY ==
[2023-10-12 13:02] VITALS: BP 129/75; PULSE 103; RESP 16; TEMP 36.7; O2SAT 95; BMI 30.5
--- NOTE | 2023-10-12 13:06 | ED.PSYCH ---
HPI - Psych General Chief Complaint: Psychiatric Symptoms Stated Complaint: Crisis Time Seen by Provider: 10/12/23 13:10 Source: patient Mode of arrival: ambulatory Limitations: no limitations History of Present Illness HPI Narrative: Patient is a 38-year-old male who presents emergency department endorsing suicidal ideations, admits to earlier having thoughts of utilizing a knife to end his life. He reports he is having daily alcohol consumption, does not provide exactly how much he is drinking but states that he last drank yesterday, denies any history of withdrawal seizures. He also states he is using PCP, reports that he last used this morning. He does admit that alcohol and PCP typically tends to worsen his depression and suicidal ideations. Related Data Home Medications ?Medication ?Instructions ?Recorded ?Confirmed acamprosate 333 mg tablet,delayed 666 mg PO TID 10/12/23 10/12/23 release clonidine HCl 0.1 mg tablet 0.1 mg PO BID PRN Anxiety 10/12/23 10/12/23 duloxetine 30 mg capsule,delayed 60 mg PO DAILY 10/12/23 10/12/23 release (Cymbalta) melatonin 5 mg tablet 5 mg PO BEDTIME PRN Insomnia 10/12/23 10/12/23 naltrexone 50 mg tablet 50 mg PO DAILY 10/12/23 10/12/23 pyridoxine (vitamin B6) 50 mg 50 mg PO DAILY 10/12/23 10/12/23 tablet Allergies Allergy/AdvReac Type Severity Reaction Status Date / Time No Known Allergies Allergy Verified 10/12/23 13:03 [No Known Allergies*] Review of Systems Review of Systems: Yes all other systems are reviewed and are negative PMFSH Past Medical History Attestation statement: The following information was validated with the patient. Source: old records reviewed Medical History Kidney stone SANJUANA (generalized anxiety disorder) Asthma Polysubstance abuse MDD (major depressive disorder), recurrent episode, moderate Surgical History H/O eye surgery Family History Family History Mother No problems noted. Father DMII (diabetes mellitus, type 2) Brother No problems noted. Brother No problems noted. Brother No problems noted. Sister No problems noted. Sister No problems noted. Sister No problems noted. Son No problems noted. Son No problems noted. Social History Social History Household Members: None Household Members Other:: Rico lives on his own Housing: Apartment Alcohol intake: former Year quit: 2019 Patient Tobacco Use Status: Current everyday Tobacco user e-Cigarette/Vaping Use: Never Used Second Hand Smoke Exposure: No Use of substances other than those prescribed or required for medical reasons: Yes Substance Use Type: Crack/Cocaine and Hallucinogens Advance Directives: No Advance Directives Information Provided: No service: No Current occupational status: employed Current occupation: [employer] Cognitive needs: No Hearing needs: No Vision needs: No Physical Exam Vital Signs: Vital Signs: Last Vital Signs Temp 97.7 F 10/13/23 17:03 Pulse 63 10/13/23 17:03 Resp 16 10/14/23 06:14 BP 122/77 10/13/23 17:03 Pulse Ox 95 10/13/23 17:03 O2 Del Method Room Air 10/13/23 17:03 BMI result Body Mass Index 30.5 Appearance: Alert.?Oriented to person, place and time. No acute distress.?Normal affect. Eyes: Pupils equal, round and reactive to light.? ENT: Pharynx normal.?? Neck: Normal inspection.? Neck supple.?? CVS: Heart sounds normal. Normal heart rate and rhythm.? Pulses normal.?? Respiratory: No respiratory distress.? Lung sounds clear to auscultation bilaterally?? Abdomen: Soft and non-tender. Normoactive bowel sounds. Skin: Skin warm and dry.? Normal skin color.? Extremities: No lower extremity edema.? No calf ttp? Neuro: Moves all extremities spontaneously. Sensation intact bilaterally. CN II-XII intact. No focal neuro deficits. Ambulates with normal steady gait. Course Reevaluation(s) Reevaluation #1: Physician observation continued. VS stable, still pending CARE team full evaluation. No acute events overnight. + for PCP and cocaine use. dual dx bed search in place. Time: 08:56 Reevaluation #2: End of physician observation patient to be transferred to acute care psychiatric hospital Time: 10:46 Reevaluation #3: Physician observation continued as patient refusing to be transferred will continue bedsearch Time: 15:58 Medications Administered Generic Name Dose Route Start Last Admin Trade Name Freq PRN Reason Stop Dose Admin Acamprosate 666 mg 10/12/23 15:00 10/14/23 08:34 Acamprosate Calcium 333 Mg Tablet. PO 666 mg TID LIONEL Administration Clonidine HCl 0.1 mg 10/12/23 14:04 10/14/23 13:49 Clonidine Hcl 0.1 Mg Tablet PO 0.1 mg BID PRN Administration Anxiety Protocol Duloxetine HCl 60 mg 10/12/23 14:15 10/14/23 08:35 Duloxetine Hcl 60 Mg Capsule. PO 60 mg DAILY LIONEL Administration Melatonin 6 mg 10/12/23 14:09 10/13/23 19:54 Melatonin 3 Mg Tablet PO 6 mg BEDTIME PRN Administration Insomnia Naltrexone HCl 50 mg 10/12/23 14:15 10/14/23 08:36 Naltrexone Hcl 50 Mg Tablet PO 50 mg DAILY LIONEL Administration Pyridoxine HCl 50 mg 10/12/23 14:15 10/14/23 08:36 Pyridoxine Hcl (Vitamin B6) 50 Mg Tablet PO 50 mg DAILY LIONEL Administration Discontinued Medications Generic Name Dose Route Start Last Admin Trade Name Minda PRN Reason Stop Dose Admin Acetaminophen 975 mg 10/12/23 14:18 10/12/23 14:29 Acetaminophen 325 Mg Tablet PO 10/12/23 14:19 975 mg ONCE ONE Administration Lorazepam 2 mg 10/12/23 19:30 10/12/23 19:45 Lorazepam 1 Mg Tablet PO 10/12/23 19:31 2 mg ONCE ONE Administration Lorazepam 2 mg 10/13/23 23:00 10/14/23 00:04 Lorazepam 1 Mg Tablet PO 10/13/23 23:01 2 mg ONCE ONE Administration Olanzapine 10 mg 10/12/23 19:30 10/12/23 19:45 Olanzapine Odt 10 Mg Tab.Rapdis TRANSLINGU 10/12/23 19:31 10 mg ONCE ONE Administration Tramadol HCl 50 mg 10/13/23 19:49 10/13/23 19:55 Tramadol Hcl 50 Mg Tablet PO 10/13/23 19:50 50 mg ONCE ONE Administration Medical Decision Making Medical Decision Making MDM Narrative: Patient is a 38-year-old male with past medical history of anxiety, depression, polysubstance use disorder, presented to emergency department for evaluation of suicidal ideations. Denies homicidal ideations. Appears quiet and withdrawn time of evaluation. He does admit to a specific plan. Will obtain basic labs for medical clearance and refer to care team for further evaluation. Differential Diagnosis Differential Diagnoses: The differential diagnosis associated with the presentation includes (Suicidal ideations, polysubstance use disorder, depression, anxiety) Admission/Observation Consideration of admission/observation: Escalation of care including admission/observation considered Physician observation so that bed search can ensue, stable vital signs, dual diagnosis bed search Consult Healthcare Provider Management of the patient was discussed with: Behavioral Health Provider (Care team) Lab Data [facility] Lab Attestation statement: I reviewed the patient's lab results. Drug abuse screen positive for cocaine and PCP, ethanol level nondetectable. 10/12/23 14:14 10/12/23 14:14 Labs: Lab Results 10/12/23 10/12/23 10/14/23 Range/Units 14:14 14:36 08:45 WBC 14.2 H (4.8-10.8) X10*3/uL RBC 4.74 (4.60-5.80) X10*6/uL Hgb 15.4 (14.0-18.0) g/dl Hct 42.7 (42.0-52.0) % MCV 90.1 (80.0-98.0) fL MCH 32.5 (27.0-33.0) pg MCHC 36.1 H (31.0-36.0) g/dl RDW 11.7 (11.0-16.0) % Plt Count 362 (160-400) X10*3/uL MPV 8.5 L (9.4-12.4) fL Immature Gran % (Auto) 0.5 H (0.0-0.4) % Neut % (Auto) 67.7 (45-73) % Lymph % (Auto) 22.2 (20-40) % [place] % (Auto) 9.2 (2-11) % Eos % (Auto) 0.1 (0-4) % Baso % (Auto) 0.3 (0-2) % Lymph # (Auto) 3.1 (1.2-4.9) X10*3/uL [place] # (Auto) 1.3 H (0.1-1.2) X10*3/uL Eos # (Auto) 0.0 (0.0-0.4) X10*3/uL Baso # (Auto) 0.0 (0.0-0.2) X10*3/uL Abs Immat Gran (auto) 0.07 H (0.00-0.03) X10*3/uL Absolute Neuts (auto) 9.6 H (2.0-8.3) x10*3/uL Absolute Nucleated RBC 0.000 (0.0-0.012) X10*3/uL Nucleated RBC % (auto) 0.0 (0.0-0.2) /100WBC Sodium 137 (135-145) mmol/L Potassium 3.6 (3.3-5.1) mmol/L Chloride 103 (96-108) mmol/L Carbon Dioxide 23 (22-29) mmol/L Anion Gap 15 (12-20) BUN 11 (9-16) mg/dL Creatinine 0.94 (0.5-1.4) mg/dL Estim Creat Clear Calc 122.7 Estimated GFR > 60 Random Glucose 107 (60-115) mg/dL Calcium 9.1 D (8.4-10.2) mg/dL Urine Color Yellow Urine Appearance Clear Urine pH 6.5 (5.0-9.0) Ur Specific [place] 1.010 (1.005-1.025) Urine Protein Negative (Neg-Trace) mg/dL Urine Glucose (UA) Negative (Negative) mg/dL Urine Ketones 15 (Negative) mg/dL Urine Blood Moderate (2+) H (Negative) Urine Nitrite Negative (Negative) Ur Leukocyte Esterase Trace H (Negative) Urine RBC 6-10 H (0-2) /HPF Urine WBC 0-5 (0-5) /HPF Ur Squamous Epith Cells 0-2 (0-2) /HPF Urine Bacteria None Seen (None Seen) Hyaline Casts 0-2 (0-2) /LPF Urine Opiates Screen Not Detected (Not Detect) Urine Fentanyl Screen Not Detected (Not Detect) Ur Barbiturates Screen Not Detected (Not Detect) Ur Phencyclidine Scrn POSITIVE H (Not Detect) Ur Amphetamines Screen Not Detected (Not Detect) U Benzodiazepines Scrn Not Detected (Not Detect) Urine Cocaine Screen POSITIVE H (Not Detect) U Marijuana (THC) Screen Not Detected (Not Detect) Ethyl Alcohol < 10 mg/dL COVID-19 (ROSS) Negative (Negative) COVID-19 Clin Com See Note External Record Review External record reviewed: Outpatient record Social Determinants Patient?s care significantly limited by Social Determinants of Health including: Alcoholism and drug addiction in family Discharge Plan Discharge Clinical Impression: Suicidal ideation, Major depressive disorder, Polysubstance abuse Patient Disposition: Xfer Psychiatric Hosp Prescriptions: No Action clonidine HCl 0.1 mg tablet 0.1 mg PO BID PRN (Reason: Anxiety) naltrexone 50 mg tablet 50 mg PO DAILY pyridoxine (vitamin B6) 50 mg tablet 50 mg PO DAILY acamprosate 333 mg tablet,delayed release (DR/EC) 666 mg PO TID duloxetine [Cymbalta] 30 mg capsule,delayed release(DR/EC) 60 mg PO DAILY melatonin 5 mg tablet 5 mg PO BEDTIME PRN (Reason: Insomnia) Interventions: [place]-Suicide Risk Severity Scale Last Done: 10/14/23 10:29 Print Language: Palauan
[2023-10-12] MEDS: Acamprosate Calcium 333 MG TABLET.DR 666 MG PO (14:14)
[2023-10-12 14:17] LABS: MANUAL DIFF FLAG NO
[2023-10-12 14:19] LABS: Basophils Percent Auto 0.3 % (0-2); Eosinophils Percent Auto 0.1 % (0-4); Hematocrit 42.7 % (42.0-52.0); Hemoglobin 15.4 g/dl (14.0-18.0); Imm Gran Abs Auto 0.07 X10*3/uL (0.00-0.03); Imm Gran Pct Auto 0.5 % (0.0-0.4); Lymphocytes Absolute Auto 3.1 X10*3/uL (1.2-4.9); Lymphocytes Percent Auto 22.2 % (20-40); Mean Corpuscular HGB Conc 36.1 g/dl (31.0-36.0); Mean Corpuscular Hemoglobin 32.5 pg (27.0-33.0); Mean Corpuscular Volume 90.1 fL (80.0-98.0); Mean Platelet Volume 8.5 fL (9.4-12.4); Monocytes Absolute Auto 1.3 X10*3/uL (0.1-1.2); Monocytes Percent Auto 9.2 % (2-11); Neutrophils Absolute Auto 9.6 x10*3/uL (2.0-8.3); Neutrophils Percent Auto 67.7 % (45-73); Platelet Count 362 X10*3/uL (160-400); Red Blood Count 4.74 X10*6/uL (4.60-5.80); Red Cell Distribution Width 11.7 % (11.0-16.0); White Blood Count 14.2 X10*3/uL (4.8-10.8)
[2023-10-12] MEDS: Acetaminophen 325 MG TABLET 975 MG PO (14:29)
--- NOTE | 2023-10-12 14:34 | PC.NURSE ---
Patient resting comfortably in bed was given tylenol for a headache, awaiting care team eval.
[2023-10-12 14:38] LABS: Anion Gap 15 (12-20); Blood Urea Nitrogen 11 mg/dL (9-16); Calcium 9.1 mg/dL (8.4-10.2); Carbon Dioxide 23 mmol/L (22-29); Chloride 103 mmol/L (96-108); Creatinine Clr Calc Pharmacy 122.7; Estimated Glomerular Filt Rate > 60; Ethanol < 10 mg/dL; Glucose Random 107 mg/dL (60-115); Potassium 3.6 mmol/L (3.3-5.1); Sodium 137 mmol/L (135-145)
[2023-10-12 14:52] LABS: Appearance Urine Clear; Color Urine Yellow; Glucose Urine UA Negative (Negative); Leukocyte Esterase Urine Trace (Negative); Nitrite Urine Negative (Negative); PH 6.5 (5.0-9.0); UMIC TRIGGER UACC YES; Urine Blood Moderate (2+) (Negative); Urine Ketones 15 mg/dL (Negative); Urine Protein Negative (Neg-Trace)
[2023-10-12 14:56] LABS: Amphetamine Screen Urine Not Detected (Not Detect); Bacteria Urine None Seen (None Seen); Barbiturates, Urine Not Detected (Not Detect); Benzodiazepines Screen Urine Not Detected (Not Detect); Cannabinoid Screen Urine Not Detected (Not Detect); Cocaine Screen Urine POSITIVE (Not Detect); Fentanyl, urine Not Detected (Not Detect); Hyaline Casts Urine 0-2 /LPF (0-2); Opiate Screen Urine Not Detected (Not Detect); Phencyclidine Screen Urine POSITIVE (Not Detect); Squamous Epithelial Cell Urine 0-2 /HPF (0-2); WBC Urine 0-5 /HPF (0-5)
[2023-10-12 16:04] VITALS: BP 132/82; PULSE 86; RESP 16; TEMP 36.9; O2SAT 96
--- NOTE | 2023-10-12 17:39 | MHC.CARE ---
Call placed to [facility] for Dual Dx Bedsearch- no beds available
[2023-10-12] MEDS: OLANZapine ODT 10 MG TAB.RAPDIS TRANSLINGU (19:45)
[2023-10-12] MEDS: LORazepam 1 MG TABLET 2 MG PO (19:45)
--- NOTE | 2023-10-12 20:03 | PC.NURSE ---
patient periodically coming out of room forgetting where his belongings are, asking us to call and make sure his kids are ok
[2023-10-13 06:28] VITALS: RESP 16
--- NOTE | 2023-10-13 07:45 | PC.NURSE ---
This RN resumed care of patient, he is currently resting comfortably, breakfast at bedside, all needs met at this time, 15 minute checks [address]. Awaiting careteam artis
[2023-10-13] MEDS: Naltrexone HCl 50 MG TABLET PO (08:40)
[2023-10-13] MEDS: Acamprosate Calcium 333 MG TABLET.DR 666 MG PO ×2 (08:40→19:54)
[2023-10-13] MEDS: DULoxetine HCl 60 MG CAPSULE.DR PO (08:40)
[2023-10-13] MEDS: Pyridoxine HCl (Vitamin B6) 50 MG TABLET PO (08:40)
--- NOTE | 2023-10-13 08:44 | MHC.CARE ---
Rad Team completed a [place] Dual bed search for this individual. [facility], [facility], [facility], [facility] and [facility] are full. Dual bed search is exhausted for the day and will resume tomorrow if needed.
[2023-10-13 08:46] VITALS: BP 142/59; PULSE 74; RESP 18; TEMP 36.2; O2SAT 97
[2023-10-13 17:03] VITALS: BP 122/77; PULSE 63; RESP 18; TEMP 36.5; O2SAT 95
[2023-10-13] MEDS: cloNIDine HCL 0.1 MG TABLET PO (19:54)
[2023-10-13] MEDS: Melatonin 3 MG TABLET 6 MG PO (19:54)
[2023-10-13] MEDS: traMADoL HCL 50 MG TABLET PO (19:55)
--- NOTE | 2023-10-14 | ECG_ITS ---
Test Reason : QT INTERVAL Blood Pressure : / mmHG Vent. Rate : 060 BPM Atrial Rate : 060 BPM P-R Int : 148 ms QRS Dur : 098 ms QT Int : 428 ms P-R-T Axes : 034 -11 002 degrees QTc Int : 428 ms Normal sinus rhythm Incomplete right bundle branch block Borderline ECG No previous ECGs available Referred By: Rico Hubbard Electronically Signed By:PALOMO WILSON
[2023-10-14] MEDS: LORazepam 1 MG TABLET 2 MG PO (00:04)
[2023-10-14 06:14] VITALS: RESP 16
--- NOTE | 2023-10-14 07:01 | PC.NURSE ---
Patient slept through the night. No distress observed/reported. patient reported lower back pain 02/06, provider notified/ordered Tramadol 50 mg, administered at 1955 with + effect, Ativan 2 mg po administered at 004 for anxiety and restlessness with + effect, medication compliant, VSS, disposition per care team is section 12 dual diagnosis bed search, no behavior concerns at this time, will continue to monitor
[2023-10-14] MEDS: Acamprosate Calcium 333 MG TABLET.DR 666 MG PO ×3 (08:34→22:34)
[2023-10-14] MEDS: DULoxetine HCl 60 MG CAPSULE.DR PO (08:35)
[2023-10-14] MEDS: Naltrexone HCl 50 MG TABLET PO (08:36)
[2023-10-14] MEDS: Pyridoxine HCl (Vitamin B6) 50 MG TABLET PO (08:36)
[2023-10-14 09:13] LABS: COVID-19 Test Negative (Negative); IDNOW Serial# 08D9AD1C
--- NOTE | 2023-10-14 10:22 | MHC.CARE ---
Addendum entered by Nieves Barron 10/14/23 10:31: The accepting provider is Dr. Jones Original Note: RAD Team conducted a dual diagnosis bed search for this individual. Per Ja @[facility] pt is accepted to [facility]. The ETA is JEREMIAH. Address is [address] [place] [id number]. RAD team notified pod RN who will work on transportation. CARE team will complete section 12 for transport.
--- NOTE | 2023-10-14 10:54 | PC.NURSE ---
legal administrative secretary provided with updated section 12 to book transportation to [facility]
[2023-10-14] MEDS: cloNIDine HCL 0.1 MG TABLET PO (13:49)
--- NOTE | 2023-10-14 16:04 | MHC.CARE ---
CARE Team spoke with Marge and provided insurance update for bedsearch
--- NOTE | 2023-10-14 16:21 | PHA.MEDREC ---
Pharmacy Consult ? Medication Reconciliation Pharmacy has reviewed the medication reconciliation completed by
--- NOTE | 2023-10-14 17:12 | PC.NURSE ---
With patients permission ex serjio morales updated on plan for admission , serjio stating that he needs help d/t chronic drug use
--- NOTE | 2023-10-14 18:41 | PC.NURSE ---
report given to accepting unit
[2023-10-14] MEDS: hydrOXYzine HCL 25 MG TABLET PO (19:04)
[2023-10-14 19:06] VITALS: BP 131/71; PULSE 77; RESP 16; TEMP 36.6; O2SAT 97
[2023-10-14 19:07] VITALS: BMI 29.7
--- NOTE | 2023-10-14 19:37 | PC.NURSE ---
Pt arrived on the unit at 1954. He came in on a CV. Skin check completed, nothing remarkable-all skin in tact. v belt coverer completed. VS taken. This nurse passing off he4 rest of the admission to the next shift.
[2023-10-14] MEDS: Acetaminophen 325 MG TABLET 650 MG PO (22:32)
[2023-10-14] MEDS: Melatonin 3 MG TABLET 6 MG PO (22:32)
[2023-10-14] MEDS: LORazepam 1 MG TABLET PO (22:34)
[2023-10-14] MEDS: traZODone HCL 50 MG TABLET PO (22:35)
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
[2023-10-15 08:14] LABS: Estimated Average Glucose 105 mg/dL; Hemoglobin A1c % 5.3 % (<6.0)
[2023-10-15 08:25] VITALS: BP 159/98; PULSE 82; RESP 16; TEMP 37; O2SAT 98
[2023-10-15] MEDS: Naltrexone HCl 50 MG TABLET PO (08:26)
[2023-10-15] MEDS: Folic Acid 1 MG TABLET PO (08:26)
[2023-10-15 08:27] LABS: Cholesterol 194 mg/dL (<200); HDL Cholesterol 45 mg/dL (>40); LDL Cholesterol Calculated 97 mg/dL (<100); Magnesium 2.3 mg/dL (1.6-2.6); Triglycerides 260 mg/dL (<150)
[2023-10-15] MEDS: Multivitamin TABLET 1 TAB PO (08:27)
[2023-10-15] MEDS: Thiamine HCL 100 MG TABLET PO (08:27)
[2023-10-15] MEDS: Pyridoxine HCl (Vitamin B6) 50 MG TABLET PO (08:27)
[2023-10-15] MEDS: Acamprosate Calcium 333 MG TABLET.DR 666 MG PO ×3 (08:27→19:45)
[2023-10-15] MEDS: DULoxetine HCl 60 MG CAPSULE.DR PO (08:27)
[2023-10-15] MEDS: Ibuprofen 800 MG TABLET PO (08:38)
[2023-10-15] MEDS: LORazepam 1 MG TABLET PO (08:39)
[2023-10-15 08:42] LABS: Free T4 (Free Thyroxine) 0.95 ng/dL (0.71-1.85); Thyroid Stimulating Hormone 0.68 uIU/mL (0.32-4.0)
[2023-10-15 08:57] LABS: Folate 9.3 ng/mL (> or = 4.0); Vitamin B12 540 pg/mL (200-900)
--- NOTE | 2023-10-15 10:10 | P.HPPS_ITS ---
HPI Date of Service: 10/15/23 Chief Complaint: Crisis Sources of Information: patient interviewed, chart reviewed and crisis/core team assessment reviewed HPI Subjective Notes: Tanner Warning and Conditional Voluntary Narrative: Patient is a 38-year-old man with history of depression, PTSD and polysubstance abuse with alcohol dependency who presents for worsening depression and passive SI. Patient reports he has mostly had depression off and on throughout his life starting in adolescents when he 1st went to foster care. As an adult his depressive episodes would be every 2-3 months, sometimes severe with patient not get out of bed or attending to any ADLs. Patient was in 2016 and then his beloved brother in 2021 and since then his depression has increasingly worsened as has his polysubstance abuse. Patient endorses drinking daily, about 20 or more drinks a day; patient uses cocaine about a g a day and has for years; he smokes PCP in about 2-3 blunts a day; buys Percocet on the street, about 4-5 a day. Patient said that as his depression worsened this past few weeks, he tried to cut down on drinking and for the past several weeks he lowered himself to about 8 drinks a day. This past week however his depression worsened to the point where he was feeling hopeless, unloved and alone in this world and started to get scared he might actually do something to hurt himself. Patient has 2 young sons whom he loves dearly and does not want to fall into harm's way and so self presented to the hospital. -denies AVH; denies any manic episodes or behaviors. Long history of trauma with subsequent PTSD symptoms Past Psychiatric History: No history of past psychiatric admissions History of detox Medical Evaluation Reviewed: Yes [facility] Medical History (Updated 10/15/23 @ 18:36 by Addy Swan MD) PTSD (post-traumatic stress disorder) Alcohol use disorder Kidney stone SANJUANA (generalized anxiety disorder) Asthma Polysubstance abuse MDD (major depressive disorder), recurrent episode, moderate Surgical History H/O eye surgery Family History: Brother: Substance abuse Social History: Patient's father left when he was very young child Raised by his mother until he was about 14 years old and then put into foster care; he has not had any contact with his mother since decades Patient dropped out of school in the 8th grade but while incarcerated got his GED Patient and has 2 young sons, 8 and 11; he was in 2017 and is in the middle of a custody [place] Patient's brother from accidental overdose in 2021 Patient has other siblings but has little contact with them Substance History: Significant polysubstance abuse including current daily alcohol, cocaine, PCP and Percocet abuse; substance abuse has been on/off for decades Trauma History: Significant trauma history starting in childhood Diagnostics Vital Signs (24Hr): Vital Signs - 24 hr 10/14/23 19:06 Temperature 97.8 F Pulse Rate 77 Respiratory Rate 16 Blood Pressure 131/71 Pulse Oximetry 97 Oxygen Delivery Method Room Air BMI result Body Mass Index 29.7 Labs 10/12/23 14:14 10/12/23 14:14 Labs: Laboratory Results - last 48 hr 10/14/23 10/15/23 08:45 07:55 Estimat Average Glucose 105 Hemoglobin A1c % 5.3 Magnesium 2.3 Triglycerides 260 H Cholesterol 194 LDL Cholesterol, Calc 97 HDL Cholesterol 45 Vitamin B12 540 Folate 9.3 TSH 0.68 Free T4 0.95 COVID-19 (ROSS) Negative COVID-19 Clin Com See Note Meds/Allergies Meds Home Medications ?Medication ?Instructions ?Recorded ?Confirmed ?Type acamprosate 333 mg tablet,delayed 666 mg PO TID 10/12/23 10/12/23 History release clonidine HCl 0.1 mg tablet 0.1 mg PO BID PRN Anxiety 10/12/23 10/12/23 History duloxetine 30 mg capsule,delayed 60 mg PO DAILY 10/12/23 10/12/23 History release (Cymbalta) melatonin 5 mg tablet 5 mg PO BEDTIME PRN Insomnia 10/12/23 10/12/23 History naltrexone 50 mg tablet 50 mg PO DAILY 10/12/23 10/12/23 History pyridoxine (vitamin B6) 50 mg 50 mg PO DAILY 10/12/23 10/12/23 History tablet Allergies Allergies Allergy/AdvReac Type Severity Reaction Status Date / Time No Known Allergies Allergy Verified 10/12/23 13:03 [No Known Allergies*] Mental Status Exam Mental Status Exam Narrative: Pt is alert and oriented; behavior is cooperative, friendly and calm; patient is not in distress; dressed in casual attire, tatooed arms, with adequate hygiene; mood is described as depressed and affect congruent, downcast, tearful; eye contact appropriate; Speech is normal rate, volume and prosody and not pressured; psychomotor retardation present; thought process is organized and goal directed; Thought content is on hopelessness of life situation, missing his kids; otherwise pertinent to relevant topics and without any delusional content, paranoid ideations or grandiosity; denies any SI/HI. There is no evidence of perceptual disturbance. Patients insight and judgment impaired Assessment & Plan Assessment & Plan (1) Major depressive disorder: Status: Acute Code(s): F32.9 - Major depressive disorder, single episode, unspecified (2) PTSD (post-traumatic stress disorder): Status: Acute Code(s): F43.10 - Post-traumatic stress disorder, unspecified (3) Alcohol use disorder: Status: Acute Code(s): F10.90 - Alcohol use, unspecified, uncomplicated (4) Polysubstance abuse: Status: Acute Code(s): F19.10 - Other psychoactive substance abuse, uncomplicated (5) Lumbar back pain: Status: Acute Code(s): M54.50 - Low back pain, unspecified Plan Patient is a 38-year-old man with history of depression, PTSD and polysubstance abuse with alcohol dependency who presents for worsening depression and passive SI. Patient reports he has mostly had depression off and on throughout his life starting in adolescents when he 1st went to foster care. As an adult his depressive episodes would be every 2-3 months, sometimes severe with patient not get out of bed or attending to any ADLs. Patient was in 2016 and then his beloved brother in 2021 and since then his depression has increasingly worsened as has his polysubstance abuse. Patient endorses drinking daily, about 20 or more drinks a day; patient uses cocaine about a g a day and has for years; he smokes PCP in about 2-3 blunts a day. Patient said that as his depression worsened this past few weeks, he tried to cut down on drinking and for the past several weeks he lowered himself to about 8 drinks a day. This past week however his depression worsened to the point where he was feeling hopeless, unloved and alone in this world and started to get scared he might actually do something to hurt himself. Patient has 2 young sons whom he loves dearly and does not want to fall into harm's way and so self presented to the hospital. -denies AVH; denies any manic episodes or behaviors. Long history of trauma with subsequent PTSD symptoms Formulation: Patient has had multiple traumatic experiences since childhood and continuing into adulthood which have resulted depression and anxiety/PTSD. To cope with stresses patient started abusing drugs in pre adolescents and his substance abuse issues continue to be a complicating factor. That said patient loves his kids yogi and is trying to regain hope of getting sober and being stable. Plan: CV Q 15 minute checks CIWA with p.r.n. Ativan Will start gabapentin 300 mg t.i.d. for help with withdrawal; may continue it if it could help with alcohol cravings and neuropathic pain Continue Cymbalta 60 mg daily; patient restarted this a few weeks ago Continue acamprosate 666 mg t.i.d.; patient restarted this a few weeks ago Will add Wellbutrin 150 mg XL daily for depression Discussed and will consider starting Suboxone as patient is addicted to opiates and has chronic pain Patient educated on: diagnosis, medication risk/benefits, substance abuse and medical condition Informed Consent: understands Reason for continued inpatient stay Substantial Risk for: rapid decompensation Statement Statement: I have reviewed the history and physical and performed a pertinent examination on my patient. No changes have occurred unless specified. If the History and Physical was not performed prior to admission, the Hospitalist's service will be consulted for completing the admission physical. Time Spent With Patient Time: Total time managing care of this patient today ____ minutes.
[2023-10-15 11:43] VITALS: BP 136/60
[2023-10-15] MEDS: cloNIDine HCL 0.1 MG TABLET PO (11:43)
[2023-10-15] MEDS: Tamsulosin HCL 0.4 MG CAPSULE PO ×2 (13:49→19:45)
[2023-10-15] MEDS: Gabapentin 300 MG CAPSULE PO ×2 (13:49→19:45)
[2023-10-15] MEDS: hydrOXYzine HCL 25 MG TABLET PO (16:23)
[2023-10-15] MEDS: Melatonin 3 MG TABLET 6 MG PO (19:44)
[2023-10-15] MEDS: traZODone HCL 50 MG TABLET PO (19:45)
[2023-10-15 20:00] VITALS: BP 117/57; PULSE 92; RESP 16; TEMP 36.4; O2SAT 95
[2023-10-16 07:00] VITALS: BMI 31.2
[2023-10-16] MEDS: Pyridoxine HCl (Vitamin B6) 50 MG TABLET PO (08:12)
[2023-10-16] MEDS: Gabapentin 300 MG CAPSULE PO ×3 (08:12→22:09)
[2023-10-16] MEDS: Acamprosate Calcium 333 MG TABLET.DR 666 MG PO ×2 (08:12→14:50)
[2023-10-16] MEDS: buPROPion HCl XL 150 MG TAB.ER.24H PO (08:12)
[2023-10-16] MEDS: Thiamine HCL 100 MG TABLET PO (08:12)
[2023-10-16] MEDS: Folic Acid 1 MG TABLET PO (08:12)
[2023-10-16] MEDS: Multivitamin TABLET 1 TAB PO (08:12)
[2023-10-16] MEDS: DULoxetine HCl 60 MG CAPSULE.DR PO (08:12)
[2023-10-16 08:40] VITALS: BP 131/82; PULSE 71; RESP 16; TEMP 36.6; O2SAT 96
[2023-10-16 10:13] VITALS: BP 137/81; PULSE 91
[2023-10-16] MEDS: cloNIDine HCL 0.1 MG TABLET PO ×2 (10:13→20:16)
[2023-10-16] MEDS: Ibuprofen 800 MG TABLET PO (13:00)
[2023-10-16] MEDS: hydrOXYzine HCL 25 MG TABLET PO (13:00)
[2023-10-16] MEDS: Buprenorphine/Naloxone 2/0.5mg FILM 1 FILM SUBLINGUAL (16:53)
--- NOTE | 2023-10-16 17:03 | HO.PSYCHPN ---
Subjective Subjective Date of Service: 10/16/23 Reason For Visit: Crisis Interim History: Met with patient; discussed with team Patient reports mood is a little better today and that he is starting to feel hopeful that he can turn his life around. Little jittery after taking Wellbutrin this morning but that seemed to fade especially with taking clonidine. Will continue at current dose for now to see if it is tolerated. Patient feels that withdrawal is subsiding. Discussed the nature of addiction, how it highjackes the mind; discussed the need for sobriety so that therapy can help him process and deal with his long history of trauma. Patient emotional as he shared some of his traumatic experiences in childhood. Discussed Suboxone which he wants to start to help him not use opiates he buys on the street and also to help with chronic pain. Mental Status Exam Mental Status Exam Narrative: Pt is alert and oriented; behavior is cooperative, friendly and calm; patient is not in distress; dressed in casual attire, tatooed arms, with adequate hygiene; mood is described as little better and affect congruent, a little brighter; eye contact appropriate; Speech is normal rate, volume and prosody and not pressured; some psychomotor retardation present; thought process is organized and goal directed; Thought content is on hopelessness of life situation, missing his kids; otherwise pertinent to relevant topics and without any delusional content, paranoid ideations or grandiosity; denies any SI/HI. There is no evidence of perceptual disturbance. Patients insight and judgment impaired Diagnostics Vital Signs (24Hr): Vital Signs - 24 hr 10/15/23 20:00 10/16/23 08:40 10/16/23 10:13 Temperature 97.5 F 98 F Pulse Rate 92 71 Respiratory Rate 16 16 Blood Pressure 117/57 L 131/82 137/81 Pulse Oximetry 95 96 Oxygen Delivery Method Room Air Room Air 10/16/23 10:13 Temperature Pulse Rate 91 Respiratory Rate Blood Pressure 137/81 Pulse Oximetry Oxygen Delivery Method BMI result Body Mass Index 31.2 Labs 10/12/23 14:14 10/12/23 14:14 Labs: Laboratory Results - last 48 hr 10/15/23 07:55 Estimat Average Glucose 105 Hemoglobin A1c % 5.3 Magnesium 2.3 Triglycerides 260 H Cholesterol 194 LDL Cholesterol, Calc 97 HDL Cholesterol 45 Vitamin B12 540 Folate 9.3 TSH 0.68 Free T4 0.95 Medications Medications Current Medications Acetaminophen (Acetaminophen 325 Mg Tablet) 650 mg PO Q6H PRN PRN Reason: Headache/Pain Mild Scale (1-3) Last Admin: 10/14/23 22:32 Dose: 650 mg Al Hydroxide/Mg Hydroxide (Magnesium Hydrox/Alum Hydrox 30 Ml Oral.Susp) 30 ml PO Q6H PRN PRN Reason: Heartburn/Nausea Bupropion HCl (Bupropion Hcl Xl 150 Mg Tab.Er.24h) 150 mg PO DAILY [facility] Last Admin: 10/16/23 08:12 Dose: 150 mg Clonidine HCl (Clonidine Hcl 0.1 Mg Tablet) 0.1 mg PO Q4H PRN; Protocol PRN Reason: mild Anxiety Last Admin: 10/16/23 10:13 Dose: 0.1 mg Duloxetine HCl (Duloxetine Hcl 60 Mg Capsule.Dr) 60 mg PO DAILY [facility] Last Admin: 10/16/23 08:12 Dose: 60 mg Folic Acid (Folic Acid 1 Mg Tablet) 1 mg PO DAILY [facility] Last Admin: 10/16/23 08:12 Dose: 1 mg Gabapentin (Gabapentin 300 Mg Capsule) 300 mg PO TID [facility] Last Admin: 10/16/23 14:50 Dose: 300 mg Hydroxyzine HCl (Hydroxyzine Hcl 25 Mg Tablet) 25 mg PO Q6H PRN PRN Reason: Anxiety Last Admin: 10/16/23 13:00 Dose: 25 mg Ibuprofen (Ibuprofen 800 Mg Tablet) 800 mg PO Q8H PRN PRN Reason: muscle pain Last Admin: 10/16/23 13:00 Dose: 800 mg Lorazepam (Lorazepam 1 Mg Tablet) 1 mg PO Q2H PRN PRN Reason: CIWA 6-10 Last Admin: 10/15/23 08:39 Dose: 1 mg Lorazepam (Lorazepam 1 Mg Tablet) 2 mg PO Q2H PRN PRN Reason: CIWA 10-15 Magnesium Hydroxide (Milk Of Magnesia 30 Ml Oral.Susp) 30 ml PO DAILY PRN PRN Reason: Constipation Melatonin (Melatonin 3 Mg Tablet) 6 mg PO BEDTIME PRN PRN Reason: Insomnia Last Admin: 10/15/23 19:44 Dose: 6 mg Multivitamins/Vitamin C (Multivitamin Tablet) 1 tab PO DAILY [facility] Last Admin: 10/16/23 08:12 Dose: 1 tab Nicotine (Nicotine 7 Mg Patch.Td24) 7 mg TRANSDERMA DAILY PRN PRN Reason: nicotine cravings Nicotine Polacrilex (Nicotine Polacrilex 2 Mg Gum) 2 mg BUCCAL Q2H PRN PRN Reason: Nicotine Cravings Pyridoxine HCl (Pyridoxine Hcl (Vitamin B6) 50 Mg Tablet) 50 mg PO DAILY [facility] Last Admin: 10/16/23 08:12 Dose: 50 mg Tamsulosin HCl (Tamsulosin Hcl 0.4 Mg Capsule) 0.4 mg PO BEDTIME [facility] Last Admin: 10/15/23 19:45 Dose: 0.4 mg Thiamine HCl (Thiamine Hcl 100 Mg Tablet) 100 mg PO DAILY [facility] Last Admin: 10/16/23 08:12 Dose: 100 mg Trazodone HCl (Trazodone Hcl 50 Mg Tablet) 50 mg PO BEDTIME MRX1 PRN PRN Reason: Insomnia Last Admin: 10/15/23 19:45 Dose: 50 mg Allergies Allergies Allergy/AdvReac Type Severity Reaction Status Date / Time No Known Allergies Allergy Verified 10/12/23 13:03 [No Known Allergies*] Assessment & Plan Assessment & Plan (1) Major depressive disorder: Status: Acute Code(s): F32.9 - Major depressive disorder, single episode, unspecified (2) PTSD (post-traumatic stress disorder): Status: Acute Code(s): F43.10 - Post-traumatic stress disorder, unspecified (3) Alcohol use disorder: Status: Acute Code(s): F10.90 - Alcohol use, unspecified, uncomplicated (4) Polysubstance abuse: Status: Acute Code(s): F19.10 - Other psychoactive substance abuse, uncomplicated (5) Lumbar back pain: Status: Acute Code(s): M54.50 - Low back pain, unspecified Plan Patient is a 38-year-old man with history of depression, PTSD and polysubstance abuse with alcohol dependency who presents for worsening depression and passive SI. Patient reports he has mostly had depression off and on throughout his life starting in adolescents when he 1st went to foster care. As an adult his depressive episodes would be every 2-3 months, sometimes severe with patient not get out of bed or attending to any ADLs. Patient was in 2016 and then his beloved brother in 2021 and since then his depression has increasingly worsened as has his polysubstance abuse. Patient endorses drinking daily, about 20 or more drinks a day; patient uses cocaine about a g a day and has for years; he smokes PCP in about 2-3 blunts a day. Patient said that as his depression worsened this past few weeks, he tried to cut down on drinking and for the past several weeks he lowered himself to about 8 drinks a day. This past week however his depression worsened to the point where he was feeling hopeless, unloved and alone in this world and started to get scared he might actually do something to hurt himself. Patient has 2 young sons whom he loves dearly and does not want to fall into harm's way and so self presented to the hospital. -denies AVH; denies any manic episodes or behaviors. Long history of trauma with subsequent PTSD symptoms Formulation: Patient has had multiple traumatic experiences since childhood and continuing into adulthood which have resulted depression and anxiety/PTSD. To cope with stresses patient started abusing drugs in pre adolescents and his substance abuse issues continue to be a complicating factor. That said patient loves his kids dearly and is trying to regain hope of getting sober and being stable. Hospital care: 10/15 Patient reports mood is a little better today and that he is starting to feel hopeful that he can turn his life around. Little jittery after taking Wellbutrin this morning but that seemed to fade especially with taking clonidine. Will continue at current dose for now to see if it is tolerated. Patient feels that withdrawal is subsiding. Discussed the nature of addiction, how it highjackes the mind; discussed the need for sobriety so that therapy can help him process and deal with his long history of trauma. Patient emotional as he shared some of his traumatic experiences in childhood. Discussed Suboxone which he wants to start to help him not use opiates he buys on the street and also to help with chronic pain. -patient has custody hearing next week and wants to discharge time for that; however he very much wants help getting a therapist and provider Plan: CV Q 15 minute checks DC CIWA Continue gabapentin 300 mg t.i.d. for help with withdrawal; may continue it if it could help with alcohol cravings and neuropathic pain Continue Cymbalta 60 mg daily; patient restarted this a few weeks ago DC acamprosate; patient only restarted it a few weeks ago and prefers to be on gabapentin since that can also help with neuropathic pain Continue Wellbutrin 150 mg XL daily for depression Start Suboxone 2/0.5 mg; will titrate Patient educated on: diagnosis, medication risk/benefits, substance abuse, therapeutic strategies and medical condition Informed Consent: understands Reason for continued inpatient stay Substantial Risk for: rapid decompensation Time Spent With Patient Time: Total time managing care of this patient today ____ minutes.
[2023-10-16] MEDS: Buprenorphine/Naloxone 4/1 mg FILM 1 FILM SUBLINGUAL (18:33)
[2023-10-16 20:10] VITALS: BP 150/86; PULSE 91; TEMP 36.4
[2023-10-16] MEDS: Melatonin 3 MG TABLET 6 MG PO (22:08)
[2023-10-16] MEDS: traZODone HCL 50 MG TABLET PO (22:09)
[2023-10-16] MEDS: Tamsulosin HCL 0.4 MG CAPSULE PO (22:10)
[2023-10-17 06:27] VITALS: BP 122/76
[2023-10-17] MEDS: cloNIDine HCL 0.1 MG TABLET PO ×2 (06:27→18:06)
[2023-10-17 08:00] VITALS: BP 110/56; RESP 16; TEMP 36.4; O2SAT 98
[2023-10-17] MEDS: Gabapentin 300 MG CAPSULE PO ×3 (08:24→20:41)
[2023-10-17] MEDS: Thiamine HCL 100 MG TABLET PO (08:25)
[2023-10-17] MEDS: DULoxetine HCl 60 MG CAPSULE.DR PO (08:25)
[2023-10-17] MEDS: Folic Acid 1 MG TABLET PO (08:25)
[2023-10-17] MEDS: buPROPion HCl XL 150 MG TAB.ER.24H PO (08:25)
[2023-10-17] MEDS: Buprenorphine/Naloxone 4/1 mg FILM 1 FILM SUBLINGUAL ×3 (08:26→20:41)
[2023-10-17] MEDS: Multivitamin TABLET 1 TAB PO (08:26)
[2023-10-17] MEDS: Pyridoxine HCl (Vitamin B6) 50 MG TABLET PO (09:18)
--- NOTE | 2023-10-17 10:38 | HO.PSYCHPN ---
Subjective Subjective Date of Service: 10/17/23 Reason For Visit: Crisis Interim History: met with patient; discussed with team pt feeling better and no jitteriness with wellbutrin; suboxone helps with cravings and helping a little with chronic back pain; he grees to schedule it TID. Discussed addiction and pt grateful for information. Patient had good visit with ex partner; discussed his relationships, working through them; discussed how his addiction has interfered with his relationships. Discussed dispo. Mental Status Exam Mental Status Exam Narrative: Pt is alert and oriented; behavior is cooperative, friendly and calm; patient is not in distress; dressed in casual attire, tatooed arms, with well hygiene; mood is described as good and affect congruent, brighter; eye contact appropriate; Speech is normal rate, volume and prosody and not pressured; no psychomotor retardation present; thought process is organized and goal directed; Thought content is on treatment, getting his life back together, dealing with broken relationships, court, missing his kids; otherwise pertinent to relevant topics and without any delusional content, paranoid ideations or grandiosity; denies any SI/HI. There is no evidence of perceptual disturbance. Patients insight and judgment fair Diagnostics Vital Signs (24Hr): Vital Signs - 24 hr 10/16/23 20:10 10/17/23 06:27 10/17/23 08:00 Temperature 97.5 F 97.5 F Pulse Rate 91 Respiratory Rate 16 Blood Pressure 150/86 H 122/76 110/56 L Pulse Oximetry 98 Oxygen Delivery Method Room Air BMI result Body Mass Index 31.2 Labs 10/12/23 14:14 10/12/23 14:14 Medications Medications Current Medications Acetaminophen (Acetaminophen 325 Mg Tablet) 650 mg PO Q6H PRN PRN Reason: Headache/Pain Mild Scale (1-3) Last Admin: 10/14/23 22:32 Dose: 650 mg Al Hydroxide/Mg Hydroxide (Magnesium Hydrox/Alum Hydrox 30 Ml Oral.Susp) 30 ml PO Q6H PRN PRN Reason: Heartburn/Nausea Buprenorphine/Naloxone (Buprenorphine/Naloxone 4/1 Mg Film) 1 film SUBLINGUAL BID [facility] Last Admin: 10/17/23 08:26 Dose: 1 film Bupropion HCl (Bupropion Hcl Xl 150 Mg Tab.Er.24h) 150 mg PO DAILY [facility] Last Admin: 10/17/23 08:25 Dose: 150 mg Clonidine HCl (Clonidine Hcl 0.1 Mg Tablet) 0.1 mg PO Q4H PRN; Protocol PRN Reason: mild Anxiety Last Admin: 10/17/23 06:27 Dose: 0.1 mg Duloxetine HCl (Duloxetine Hcl 60 Mg Capsule.Dr) 60 mg PO DAILY [facility] Last Admin: 10/17/23 08:25 Dose: 60 mg Folic Acid (Folic Acid 1 Mg Tablet) 1 mg PO DAILY [facility] Last Admin: 10/17/23 08:25 Dose: 1 mg Gabapentin (Gabapentin 300 Mg Capsule) 300 mg PO TID [facility] Last Admin: 10/17/23 08:24 Dose: 300 mg Hydroxyzine HCl (Hydroxyzine Hcl 25 Mg Tablet) 25 mg PO Q6H PRN PRN Reason: Anxiety Last Admin: 10/16/23 13:00 Dose: 25 mg Ibuprofen (Ibuprofen 800 Mg Tablet) 800 mg PO Q8H PRN PRN Reason: muscle pain Last Admin: 10/16/23 13:00 Dose: 800 mg Magnesium Hydroxide (Milk Of Magnesia 30 Ml Oral.Susp) 30 ml PO DAILY PRN PRN Reason: Constipation Melatonin (Melatonin 3 Mg Tablet) 6 mg PO BEDTIME PRN PRN Reason: Insomnia Last Admin: 10/16/23 22:08 Dose: 6 mg Multivitamins/Vitamin C (Multivitamin Tablet) 1 tab PO DAILY [facility] Last Admin: 10/17/23 08:26 Dose: 1 tab Nicotine (Nicotine 7 Mg Patch.Td24) 7 mg TRANSDERMA DAILY PRN PRN Reason: nicotine cravings Nicotine Polacrilex (Nicotine Polacrilex 2 Mg Gum) 2 mg BUCCAL Q2H PRN PRN Reason: Nicotine Cravings Pyridoxine HCl (Pyridoxine Hcl (Vitamin B6) 50 Mg Tablet) 50 mg PO DAILY [facility] Last Admin: 10/17/23 09:18 Dose: 50 mg Tamsulosin HCl (Tamsulosin Hcl 0.4 Mg Capsule) 0.4 mg PO BEDTIME [facility] Last Admin: 10/16/23 22:10 Dose: 0.4 mg Thiamine HCl (Thiamine Hcl 100 Mg Tablet) 100 mg PO DAILY [facility] Last Admin: 10/17/23 08:25 Dose: 100 mg Trazodone HCl (Trazodone Hcl 50 Mg Tablet) 50 mg PO BEDTIME MRX1 PRN PRN Reason: Insomnia Last Admin: 10/16/23 22:09 Dose: 50 mg Allergies Allergies Allergy/AdvReac Type Severity Reaction Status Date / Time No Known Allergies Allergy Verified 10/12/23 13:03 [No Known Allergies*] Assessment & Plan Assessment & Plan (1) Major depressive disorder: Status: Acute Code(s): F32.9 - Major depressive disorder, single episode, unspecified (2) PTSD (post-traumatic stress disorder): Status: Acute Code(s): F43.10 - Post-traumatic stress disorder, unspecified (3) Alcohol use disorder: Status: Acute Code(s): F10.90 - Alcohol use, unspecified, uncomplicated (4) Opioid use disorder: Status: Acute Code(s): F11.90 - Opioid use, unspecified, uncomplicated (5) Polysubstance abuse: Status: Acute Code(s): F19.10 - Other psychoactive substance abuse, uncomplicated (6) Lumbar back pain: Status: Acute Code(s): M54.50 - Low back pain, unspecified Plan Patient is a 38-year-old man with history of depression, PTSD and polysubstance abuse with alcohol dependency who presents for worsening depression and passive SI. Patient reports he has mostly had depression off and on throughout his life starting in adolescents when he 1st went to foster care. As an adult his depressive episodes would be every 2-3 months, sometimes severe with patient not get out of bed or attending to any ADLs. Patient was in 2016 and then his beloved brother in 2021 and since then his depression has increasingly worsened as has his polysubstance abuse. Patient endorses drinking daily, about 20 or more drinks a day; patient uses cocaine about a g a day and has for years; he smokes PCP in about 2-3 blunts a day. Patient said that as his depression worsened this past few weeks, he tried to cut down on drinking and for the past several weeks he lowered himself to about 8 drinks a day. This past week however his depression worsened to the point where he was feeling hopeless, unloved and alone in this world and started to get scared he might actually do something to hurt himself. Patient has 2 young sons whom he loves dearly and does not want to fall into harm's way and so self presented to the hospital. -denies AVH; denies any manic episodes or behaviors. Long history of trauma with subsequent PTSD symptoms Formulation: Patient has had multiple traumatic experiences since childhood and continuing into adulthood which have resulted depression and anxiety/PTSD. To cope with stresses patient started abusing drugs in pre adolescents and his substance abuse issues continue to be a complicating factor. That said patient loves his kids dearly and is trying to regain hope of getting sober and being stable. Hospital care: 10/15 Patient reports mood is a little better today and that he is starting to feel hopeful that he can turn his life around. Little jittery after taking Wellbutrin this morning but that seemed to fade especially with taking clonidine. Will continue at current dose for now to see if it is tolerated. Patient feels that withdrawal is subsiding. Discussed the nature of addiction, how it highjackes the mind; discussed the need for sobriety so that therapy can help him process and deal with his long history of trauma. Patient emotional as he shared some of his traumatic experiences in childhood. Discussed Suboxone which he wants to start to help him not use opiates he buys on the street and also to help with chronic pain. -patient has custody hearing next week and wants to discharge time for that; however he very much wants help getting a therapist and provider 10/16 pt feeling better and no jitteriness with wellbutrin; suboxone helps with cravings and helping a little with chronic back pain; he grees to schedule it TID. Discussed addiction and pt grateful for information. Patient had good visit with ex partner; discussed his relationships, working through them; discussed how his addiction has interfered with his relationships. Discussed dispo. Plan: CV Q 15 minute checks Continue gabapentin 300 mg t.i.d. for help with withdrawal; may continue it if it could help with alcohol cravings and neuropathic pain Continue Cymbalta 60 mg daily; patient restarted this a few weeks ago DC acamprosate; patient only restarted it a few weeks ago and prefers to be on gabapentin since that can also help with neuropathic pain Continue Wellbutrin 150 mg XL daily for depression Start Suboxone 2/0.5 mg; will titrate Patient educated on: diagnosis, medication risk/benefits, substance abuse, therapeutic strategies and medical condition Informed Consent: understands Reason for continued inpatient stay Substantial Risk for: stable for discharge Time Spent With Patient Time: Total time managing care of this patient today ____ minutes.
[2023-10-17 20:00] VITALS: BP 134/67; PULSE 73; RESP 18; TEMP 36.8; O2SAT 97
[2023-10-17] MEDS: Tamsulosin HCL 0.4 MG CAPSULE PO (20:41)
[2023-10-17] MEDS: Melatonin 3 MG TABLET 6 MG PO (22:29)
[2023-10-17] MEDS: traZODone HCL 50 MG TABLET PO (22:29)
[2023-10-17] MEDS: hydrOXYzine HCL 25 MG TABLET PO (22:29)
[2023-10-18 08:00] VITALS: BP 126/59; PULSE 101; RESP 18; TEMP 36.4; O2SAT 96
[2023-10-18] MEDS: Gabapentin 300 MG CAPSULE PO ×3 (08:02→18:24)
[2023-10-18] MEDS: Pyridoxine HCl (Vitamin B6) 50 MG TABLET PO (08:02)
[2023-10-18] MEDS: Folic Acid 1 MG TABLET PO (08:08)
[2023-10-18] MEDS: Multivitamin TABLET 1 TAB PO (08:08)
[2023-10-18] MEDS: Thiamine HCL 100 MG TABLET PO (08:08)
[2023-10-18] MEDS: Buprenorphine/Naloxone 4/1 mg FILM 1 FILM SUBLINGUAL ×3 (08:09→18:24)
[2023-10-18] MEDS: cloNIDine HCL 0.1 MG TABLET PO ×2 (09:59→15:33)
[2023-10-18] MEDS: Milk of Magnesia 30 ML ORAL.SUSP PO (10:00)
--- NOTE | 2023-10-18 10:47 | P.PNPSI_ITS ---
Subjective Subjective Date of Service: 10/18/23 Reason For Visit: Crisis Interim History: Met with patient; discussed with team Patient abruptly asked for discharge today. He was calm, logical and polite however he said he just realized it was the anniversary of his brother's and he wanted to go sees brother's grave and spent time with family. Initially keno writer / runner declined discharge as the plan was for him to discharge on Friday and social work still needs to set up outpatient providers, prescriber and therapist, and he needs to get an appointment [facility]. Discharge without these things in place puts him at high risk for relapse and without follow-up. Patient was angry walked out and slammed the door. He otherwise remained in good behavioral and impulse control. He had a visitor who came to spend some time and reflect on their loved one. Patient witnessed another peer being discharged and re-approached keno writer / runner, upset, though in control, that he was not allowed to discharge. Patient said that he will be fine, has no urges to use at all and despite the risks of relapse, plans to stay sober. He understand Suboxone can not be continued without follow-up and is fine with not getting Suboxone; he said he will also find a way to get his own outpatient providers. Patient could not be dissuaded. Patient has remained in good behavioral and impulse control throughout his time in the unit, engaged in treatment, without any SI, in a good mood and overall doing well. Director Medical Safety agreed that Despite the fact that this abrupt discharge will make it hard for him to remain stable, keno writer / runner fully agrees that he is not in imminent risk for harm to self or others. Mental Status Exam Mental Status Exam Narrative: Pt is alert and oriented; behavior is overall cooperative, friendly and calm; patient is not in distress; dressed in casual attire, tatooed arms, with well hygiene; mood is described as good and affect congruent, overall brighter; eye contact appropriate; Speech is normal rate, volume and prosody and not pressured; no psychomotor retardation present; thought process is organized and goal directed; Thought content is on treatment, getting his life back together, dealing with broken relationships, court, missing his kids; otherwise pertinent to relevant topics and without any delusional content, paranoid ideations or grandiosity; denies any SI/HI. There is no evidence of perceptual disturbance. Patients insight and judgment fair Diagnostics Vital Signs (24Hr): Vital Signs - 24 hr 10/17/23 20:00 10/18/23 08:00 Temperature 98.3 F 97.5 F Pulse Rate 73 101 H Respiratory Rate 18 18 Blood Pressure 134/67 126/59 L Pulse Oximetry 97 96 Oxygen Delivery Method Room Air Room Air BMI result Body Mass Index 31.2 Labs 10/12/23 14:14 10/12/23 14:14 Medications Medications Current Medications Acetaminophen (Acetaminophen 325 Mg Tablet) 650 mg PO Q6H PRN PRN Reason: Headache/Pain Mild Scale (1-3) Last Admin: 10/14/23 22:32 Dose: 650 mg Al Hydroxide/Mg Hydroxide (Magnesium Hydrox/Alum Hydrox 30 Ml Oral.Susp) 30 ml PO Q6H PRN PRN Reason: Heartburn/Nausea Buprenorphine/Naloxone (Buprenorphine/Naloxone 4/1 Mg Film) 1 film SUBLINGUAL TID [facility] Last Admin: 10/18/23 08:09 Dose: 1 film Bupropion HCl (Bupropion Hcl Xl 150 Mg Tab.Er.24h) 150 mg PO DAILY [facility] Last Admin: 10/18/23 08:02 Dose: Not Given Clonidine HCl (Clonidine Hcl 0.1 Mg Tablet) 0.1 mg PO Q4H PRN; Protocol PRN Reason: mild Anxiety Last Admin: 10/18/23 09:59 Dose: 0.1 mg Duloxetine HCl (Duloxetine Hcl 60 Mg Capsule.Dr) 60 mg PO DAILY [facility] Last Admin: 10/18/23 08:02 Dose: Not Given Folic Acid (Folic Acid 1 Mg Tablet) 1 mg PO DAILY [facility] Last Admin: 10/18/23 08:08 Dose: 1 mg Gabapentin (Gabapentin 300 Mg Capsule) 300 mg PO TID [facility] Last Admin: 10/18/23 08:02 Dose: 300 mg Hydroxyzine HCl (Hydroxyzine Hcl 25 Mg Tablet) 25 mg PO Q6H PRN PRN Reason: Anxiety Last Admin: 10/17/23 22:29 Dose: 25 mg Ibuprofen (Ibuprofen 800 Mg Tablet) 800 mg PO Q8H PRN PRN Reason: muscle pain Last Admin: 10/16/23 13:00 Dose: 800 mg Magnesium Hydroxide (Milk Of Magnesia 30 Ml Oral.Susp) 30 ml PO DAILY PRN PRN Reason: Constipation Last Admin: 10/18/23 10:00 Dose: 30 ml Melatonin (Melatonin 3 Mg Tablet) 6 mg PO BEDTIME PRN PRN Reason: Insomnia Last Admin: 10/17/23 22:29 Dose: 6 mg Multivitamins/Vitamin C (Multivitamin Tablet) 1 tab PO DAILY [facility] Last Admin: 10/18/23 08:08 Dose: 1 tab Nicotine (Nicotine 7 Mg Patch.Td24) 7 mg TRANSDERMA DAILY PRN PRN Reason: nicotine cravings Nicotine Polacrilex (Nicotine Polacrilex 2 Mg Gum) 2 mg BUCCAL Q2H PRN PRN Reason: Nicotine Cravings Pyridoxine HCl (Pyridoxine Hcl (Vitamin B6) 50 Mg Tablet) 50 mg PO DAILY [facility] Last Admin: 10/18/23 08:02 Dose: 50 mg Tamsulosin HCl (Tamsulosin Hcl 0.4 Mg Capsule) 0.4 mg PO BEDTIME [facility] Last Admin: 10/17/23 20:41 Dose: 0.4 mg Thiamine HCl (Thiamine Hcl 100 Mg Tablet) 100 mg PO DAILY [facility] Last Admin: 10/18/23 08:08 Dose: 100 mg Trazodone HCl (Trazodone Hcl 50 Mg Tablet) 50 mg PO BEDTIME MRX1 PRN PRN Reason: Insomnia Last Admin: 10/17/23 22:29 Dose: 50 mg Allergies Allergies Allergy/AdvReac Type Severity Reaction Status Date / Time No Known Allergies Allergy Verified 10/12/23 13:03 [No Known Allergies*] Assessment & Plan Assessment & Plan (1) Major depressive disorder: Status: Acute Code(s): F32.9 - Major depressive disorder, single episode, unspecified (2) PTSD (post-traumatic stress disorder): Status: Acute Code(s): F43.10 - Post-traumatic stress disorder, unspecified (3) Alcohol use disorder: Status: Acute Code(s): F10.90 - Alcohol use, unspecified, uncomplicated (4) Opioid use disorder: Status: Acute Code(s): F11.90 - Opioid use, unspecified, uncomplicated (5) Polysubstance abuse: Status: Acute Code(s): F19.10 - Other psychoactive substance abuse, uncomplicated (6) Lumbar back pain: Status: Acute Code(s): M54.50 - Low back pain, unspecified Plan Patient is a 38-year-old man with history of depression, PTSD and polysubstance abuse with alcohol dependency who presents for worsening depression and passive SI. Patient reports he has mostly had depression off and on throughout his life starting in adolescents when he 1st went to foster care. As an adult his depressive episodes would be every 2-3 months, sometimes severe with patient not get out of bed or attending to any ADLs. Patient was in 2016 and then his beloved brother in 2021 and since then his depression has increasingly worsened as has his polysubstance abuse. Patient endorses drinking daily, about 20 or more drinks a day; patient uses cocaine about a g a day and has for years; he smokes PCP in about 2-3 blunts a day. Patient said that as his depression worsened this past few weeks, he tried to cut down on drinking and for the past several weeks he lowered himself to about 8 drinks a day. This past week however his depression worsened to the point where he was feeling hopeless, unloved and alone in this world and started to get scared he might actually do something to hurt himself. Patient has 2 young sons whom he loves dearly and does not want to fall into harm's way and so self presented to the hospital. -denies AVH; denies any manic episodes or behaviors. Long history of trauma with subsequent PTSD symptoms Formulation: Patient has had multiple traumatic experiences since childhood and continuing into adulthood which have resulted depression and anxiety/PTSD. To cope with stresses patient started abusing drugs in pre adolescents and his substance abuse issues continue to be a complicating factor. That said patient loves his kids dearly and is trying to regain hope of getting sober and being stable. Hospital care: 10/15 Patient reports mood is a little better today and that he is starting to feel hopeful that he can turn his life around. Little jittery after taking Wellbutrin this morning but that seemed to fade especially with taking clonidine. Will continue at current dose for now to see if it is tolerated. Patient feels that withdrawal is subsiding. Discussed the nature of addiction, how it highjackes the mind; discussed the need for sobriety so that therapy can help him process and deal with his long history of trauma. Patient emotional as he shared some of his traumatic experiences in childhood. Discussed Suboxone which he wants to start to help him not use opiates he buys on the street and also to help with chronic pain. -patient has custody hearing next week and wants to discharge time for that; however he very much wants help getting a therapist and provider 10/16 pt feeling better and no jitteriness with wellbutrin; suboxone helps with cravings and helping a little with chronic back pain; he grees to schedule it TID. Discussed addiction and pt grateful for information. Patient had good visit with ex partner; discussed his relationships, working through them; discussed how his addiction has interfered with his relationships. Discussed dispo. 10/17 Patient abruptly asked for discharge today. He was calm, logical and polite however he said he just realized it was the anniversary of his brother's and he wanted to go sees brother's grave and spent time with family. Additionally, patient no longer wanted to take Wellbutrin, saying it made him feel not himself. Initially keno writer / runner declined discharge as the plan was for him to discharge on Friday and social work still needs to set up outpatient providers, prescriber and therapist, and he needs to get an appointment with [facility]. Also, he is now discontinuing an antidepressant medication that seemed helpful. Discharge without these things in place puts him at high risk for relapse and without follow-up. Patient was angry walked out, went to his room and slammed the door. Other than this, He otherwise remained in good behavioral and impulse control. He had a visitor who came to spend some time and reflect on their loved one. Patient witnessed another peer being discharged and re-approached keno writer / runner, upset, though in control, that he was not allowed to discharge. Patient said that he will be fine, has no urges to use at all and despite the risks of relapse, plans to stay sober. He understands that Suboxone can not be continued without follow-up in place and he says he is fine with not getting Suboxone; he said he will also find a way to get his own outpatient providers. Patient could not be dissuaded. Patient has remained in good behavioral and impulse control throughout his time in the unit, engaged in treatment, without any SI, in a good mood and overall doing well. Director Medical Safety agreed that Despite the fact that this abrupt discharge will make it hard for him to remain stable, keno writer / runner fully agrees that he is not in imminent risk for harm to self or others. Director Medical Safety agreed to discharge. Scripts sent to his pharmacy which included a taper for gabapentin. Director Medical Safety gave him a [facility] for [facility] and explained to that he can walking there during clinic hours and get restarted on Suboxone for which patient was grateful. Patient expressed gratitude for help received which he felt was valuable. Patient educated on: diagnosis, medication risk/benefits, substance abuse and therapeutic strategies Informed Consent: understands Reason for continued inpatient stay Substantial Risk for: stable for discharge Time Spent With Patient Time: Total time managing care of this patient today ____ minutes.
[2023-10-18] MEDS: hydrOXYzine HCL 25 MG TABLET PO (12:32)
[2023-10-18] MEDS: buPROPion HCl XL 150 MG TAB.ER.24H PO (12:32)
[2023-10-18 15:39] VITALS: BP 138/88; PULSE 100; TEMP 36.5; O2SAT 95
--- NOTE | 2023-10-18 17:47 | P.DS_ITS ---
DS: Providers Provider Date of Service: 10/18/23 Date of admission: 10/14/23 17:52 Date of discharge: 10/18/23 Primary care physician: Carlos Hernandez PA-C DS: Diagnosis Discharge Diagnosis (1) Major depressive disorder: Status: Acute (2) PTSD (post-traumatic stress disorder): Status: Acute (3) Alcohol use disorder: Status: Acute (4) Opioid use disorder: Status: Acute (5) Polysubstance abuse: Status: Acute (6) Lumbar back pain: Status: Acute DS: Medications Discharge Medications Home Medications: Home Medications ?Medication ?Instructions ?Recorded ?Confirmed melatonin 5 mg tablet 5 mg PO BEDTIME PRN Insomnia 10/12/23 10/12/23 Previous Rx's ?Medication ?Instructions ?Recorded clonidine HCl 0.1 mg tablet 0.1 mg PO BID PRN Anxiety 30 days 10/18/23 #90 tabs duloxetine 30 mg capsule,delayed 60 mg (2 x 30 mg) PO DAILY 30 days 10/18/23 release (Cymbalta) #60 caps gabapentin 300 mg capsule 300 mg PO BID 10 days #20 caps 10/18/23 hydroxyzine HCl 25 mg tablet 25 mg PO Q6H PRN Anxiety 30 days 10/18/23 #60 tabs pyridoxine (vitamin B6) 50 mg 50 mg PO DAILY 30 days #30 tabs 10/18/23 tablet tamsulosin 0.4 mg capsule 0.4 mg PO BEDTIME 30 days #30 caps 10/18/23 trazodone 50 mg tablet 50 mg PO BEDTIME PRN Insomnia 30 10/18/23 days #30 tabs Mental Status Exam Mental Status Exam Narrative: Pt is alert and oriented; behavior is overall cooperative, friendly and calm; patient is not in distress; dressed in casual attire, tatooed arms, with well hygiene; mood is described as good and affect congruent, overall brighter; eye contact appropriate; Speech is normal rate, volume and prosody and not pressured; no psychomotor retardation present; thought process is organized and goal directed; Thought content is on treatment, getting his life back together, dealing with broken relationships, court, missing his kids; otherwise pertinent to relevant topics and without any delusional content, paranoid ideations or grandiosity; denies any SI/HI. There is no evidence of perceptual disturbance. Patients insight and judgment fair Data Data Completed and Pending Completed studies during hospitalization [Text1]: 10/12/23 10/12/23 10/14/23 14:14 14:36 08:45 WBC 14.2 H RBC 4.74 Hgb 15.4 Hct 42.7 MCV 90.1 MCH 32.5 MCHC 36.1 H RDW 11.7 Plt Count 362 MPV 8.5 L Immature Gran % (Auto) 0.5 H Neut % (Auto) 67.7 Lymph % (Auto) 22.2 Tripp % (Auto) 9.2 Eos % (Auto) 0.1 Baso % (Auto) 0.3 Lymph # (Auto) 3.1 Tripp # (Auto) 1.3 H Eos # (Auto) 0.0 Baso # (Auto) 0.0 Abs Immat Gran (auto) 0.07 H Absolute Neuts (auto) 9.6 H Absolute Nucleated RBC 0.000 Nucleated RBC % (auto) 0.0 Sodium 137 Potassium 3.6 Chloride 103 Carbon Dioxide 23 Anion Gap 15 BUN 11 Creatinine 0.94 Estim Creat Clear Calc 122.7 Estimated GFR > 60 Random Glucose 107 Estimat Average Glucose Hemoglobin A1c % Calcium 9.1 D Magnesium Triglycerides Cholesterol LDL Cholesterol, Calc HDL Cholesterol Vitamin B12 Folate TSH Free T4 Urine Color Yellow Urine Appearance Clear Urine pH 6.5 Ur Specific [place] 1.010 Urine Protein Negative Urine Glucose (UA) Negative Urine Ketones 15 Urine Blood Moderate (2+) H Urine Nitrite Negative Ur Leukocyte Esterase Trace H Urine RBC 6-10 H Urine WBC 0-5 Ur Squamous Epith Cells 0-2 Urine Bacteria None Seen Hyaline Casts 0-2 Urine Opiates Screen Not Detected Urine Fentanyl Screen Not Detected Ur Barbiturates Screen Not Detected Ur Phencyclidine Scrn POSITIVE H Ur Amphetamines Screen Not Detected U Benzodiazepines Scrn Not Detected Urine Cocaine Screen POSITIVE H U Marijuana (THC) Screen Not Detected Ethyl Alcohol < 10 COVID-19 (ROSS) Negative COVID-19 Clin Com See Note 10/15/23 07:55 WBC RBC Hgb Hct MCV MCH MCHC RDW Plt Count MPV Immature Gran % (Auto) Neut % (Auto) Lymph % (Auto) Tripp % (Auto) Eos % (Auto) Baso % (Auto) Lymph # (Auto) Tripp # (Auto) Eos # (Auto) Baso # (Auto) Abs Immat Gran (auto) Absolute Neuts (auto) Absolute Nucleated RBC Nucleated RBC % (auto) Sodium Potassium Chloride Carbon Dioxide Anion Gap BUN Creatinine Estim Creat Clear Calc Estimated GFR Random Glucose Estimat Average Glucose 105 Hemoglobin A1c % 5.3 Calcium Magnesium 2.3 Triglycerides 260 H Cholesterol 194 LDL Cholesterol, Calc 97 HDL Cholesterol 45 Vitamin B12 540 Folate 9.3 TSH 0.68 Free T4 0.95 Urine Color Urine Appearance Urine pH Ur Specific [place] Urine Protein Urine Glucose (UA) Urine Ketones Urine Blood Urine Nitrite Ur Leukocyte Esterase Urine RBC Urine WBC Ur Squamous Epith Cells Urine Bacteria Hyaline Casts Urine Opiates Screen Urine Fentanyl Screen Ur Barbiturates Screen Ur Phencyclidine Scrn Ur Amphetamines Screen U Benzodiazepines Scrn Urine Cocaine Screen U Marijuana (THC) Screen Ethyl Alcohol COVID-19 (ROSS) COVID-19 Clin Com DS: Summary Hospital Course Hospital Course: Patient is a 38-year-old man with history of depression, PTSD and polysubstance abuse with alcohol dependency who presents for worsening depression and passive SI. Patient reports he has mostly had depression off and on throughout his life starting in adolescents when he 1st went to foster care. As an adult his depressive episodes would be every 2-3 months, sometimes severe with patient not get out of bed or attending to any ADLs. Patient was in 2016 and then his beloved brother in 2021 and since then his depression has increasingly worsened as has his polysubstance abuse. Patient endorses drinking daily, about 20 or more drinks a day; patient uses cocaine about a g a day and has for years; he smokes PCP in about 2-3 blunts a day. Patient said that as his depression worsened this past few weeks, he tried to cut down on drinking and for the past several weeks he lowered himself to about 8 drinks a day. This past week however his depression worsened to the point where he was feeling hopeless, unloved and alone in this world and started to get scared he might actually do something to hurt himself. Patient has 2 young sons whom he loves dearly and does not want to fall into harm's way and so self presented to the hospital. -denies AVH; denies any manic episodes or behaviors. Long history of trauma wi th subsequent PTSD symptoms Formulation: Patient has had multiple traumatic experiences since childhood and continuing into adulthood which have resulted depression and anxiety/PTSD. To cope with s trebushraes patient started abusing drugs in pre adolescents and his substance abuse issues continue to be a complicating factor. That said patient loves his kids dearly and is trying to regain hope of getting sober and being stable. Hospital care: 10/15 Patient reports mood is a little better today and that he is starting to feel hopeful that he can turn his life around. Little jittery after taking Wellbutrin this morning but that seemed to fade especially with taking clonidine. Will continue at current dose for now to see if it is tolerated. Patient feels that withdrawal is subsiding. Discussed the nature of addiction, how it highjackes the mind; discussed the need for sobriety so that therapy can help him process and deal with his long history of trauma. Patient emotional as he shared some of his traumatic experiences in childhood. Discussed Suboxone which he wants to start to help him not use opiates he buys on the street and also to help with chronic pain. -patient has custody hearing next week and wants to discharge time for that; however he very much wants help getting a therapist and provider 10/16 pt feeling better and no jitteriness with wellbutrin; suboxone helps with cravings and helping a little with chronic back pain; he grees to schedule it TID. Discussed addiction and pt grateful for information. Patient had good visit with ex partner; discussed his relationships, working through them; discussed how his addiction has interfered with his relationships. Discussed dispo. 10/17 Patient abruptly asked for discharge today. He was calm, logical and polite however he said he just realized it was the anniversary of his brother's and he wanted to go sees brother's grave and spent time with family. Additionally, patient no longer wanted to take Wellbutrin, saying it made him feel not himself. Initially curriculum writer declined discharge as the plan was for him to discharge on Friday and social work still needs to set up outpatient pau bello, prescriber and therapist, and he needs to get an appointment with [facility]. Also, he is now discontinuing an antidepressant medication that seemed helpful. Discharge without these things in place puts him at high risk for relapse and without follow-up. Patient was angry walked out, went to his room and slammed the door. Other than this, He otherwise remained in good behavioral and impulse control. He had a visitor who came to spend some time and reflect on their loved one. Patient witnessed another peer being discharged and re-approached curriculum writer, upset, though in control, that he was not allowed to discharge. Patient said that he will be fine, has no urges to use at all and despite the risks of relapse, plans to stay sober. He understands that Suboxone can not be continued without follow-up in place and he says he is fine with not getting Suboxone; he said he will also find a way to get his own outpatient providers. Patient could not be dissuaded. Patient has remained in good behavioral and impulse control throughout his time in the unit, engaged in treatment, without any SI, in a good mood and overall doing well. Heating And Cooling Systems Engineer agreed that Despite the strong possibility that this abrupt discharge will make it hard for him to remain stable, curriculum writer fully agrees that he is not in imminent risk for harm to self or others. Patient and team plan for him to discharge on Friday. Heating And Cooling Systems Engineer agreed to discharge today. Scripts sent to his pharmacy which included a taper for gabapentin. Although patient may withdrawal some from Suboxone, he was on it a low dose and only for a few days; also Heating And Cooling Systems Engineer gave him a pamphlet for [facility] and explained to that he can walking there during clinic hours and get restarted on Suboxone for which patient was grateful. Patient expressed gratitude for help received which he felt was valuable. Time spent discussing smoking cessation with patient: 3 to 10 minutes Status at Discharge Functional status at discharge: independent ambulation Overall status at discharge: patient is back to baseline Time Spent with Patient Time attestation: Total time managing care of this patient today __50__ minutes. Time spent: Greater than 30 minutes Discharge Plan Discharge Anticipated Discharge Date/Time: 10/18/23 17:37 Patient Disposition: Home, Self-Care Discharge Diagnosis: MDD, recurrent, severe without psychosis, in full remission Referrals: Carlos Hernandez PA-C [Primary Care Provider] - (Office will call to schedule a follow up appointment.) Discharge Medications: New tamsulosin 0.4 mg Capsule 0.4 mg PO BEDTIME 30 Days Qty: 30 0RF gabapentin 300 mg Capsule 300 mg PO BID 10 Days Qty: 20 0RF hydroxyzine HCl 25 mg Tablet 25 mg PO Q6H PRN (Reason: Anxiety) 30 Days Qty: 60 0RF trazodone 50 mg Tablet 50 mg PO BEDTIME PRN (Reason: Insomnia) 30 Days Qty: 30 0RF Continued melatonin 5 mg tablet 5 mg PO BEDTIME PRN (Reason: Insomnia) clonidine HCl 0.1 mg tablet 0.1 mg PO BID PRN (Reason: Anxiety) 30 Days Qty: 90 0RF pyridoxine (vitamin B6) 50 mg tablet 50 mg PO DAILY 30 Days Qty: 30 0RF duloxetine [Cymbalta] 30 mg capsule,delayed release(DR/EC) 60 mg PO DAILY 30 Days Qty: 60 0RF Discontinued naltrexone 50 mg tablet 50 mg PO DAILY acamprosate 333 mg tablet,delayed release (DR/EC) 666 mg PO TID Discharge Orders: Discharge Order (Routine); Ordered 10/18/23 Ordered By: Addy Swan Diet: Regular diet Activity on Discharge: As tolerated Stand Alone Forms: Patient Portal Discharge page, Community Support Print Language: Citizen Of [place] Care Plan Goals: Maintain mood and safe behaviors Take medications as prescribed Continue to pursue sobriety Practice coping skills Continue with outpatient providers and reach out to them as needed Health Concerns: Mood stability and behaviors Sobriety Chronic low back pain Plan of Treatment: Follow up with your PCP, psychiatric provider and other outpatient providers regarding above concerns Take medications as prescribed Assessment: Risk assessment at time of discharge:? Patient was interviewed prior to discharge and found to be fully oriented and without any SI or HI. Patient has improved insight and judgment and wants to continue treatment. Patient is not in imminent risk of harm to self or others and has a safety plan that includes presenting to the closest ER or calling 911 if feeling unsafe.? Patient has been observed closely by nursing and unit staff throughout admission; patient has not engaged in any behaviors that suggest dangerousness to self or others and has demonstrated appropriate behaviors and impulse control Discharge Date/Time: 10/18/23 18:44
[2023-10-18] MEDS: Tamsulosin HCL 0.4 MG CAPSULE PO (18:24)
== END 2023-10-18 18:44 | disposition home or self-care (01) | DRG 751 ==
LOC: HO.ED 10-14 10:45 → HO.PM5 10-14 18:24
PROVIDERS: Emergency Medicine; Nurse Practitioner Family; Admitting Provider Clinical Nurse Specialist Psychiatric/Mental Health, Adult; Emergency Provider Student in an Organized Health Care Education/Training Program; PCP Physician Assistant; Visit Provider Psychiatry & Neurology Psychiatry
DX: F33.2 Major depressive disorder, recurrent severe without psychotic features (principal); R45.851 Suicidal ideations; F10.20 Alcohol dependence, uncomplicated; F11.20 Opioid dependence, uncomplicated; F17.210 Nicotine dependence, cigarettes, uncomplicated; F19.10 Other psychoactive substance abuse, uncomplicated; F41.1 Generalized anxiety disorder; F43.10 Post-traumatic stress disorder, unspecified; Z71.6 Tobacco abuse counseling; Z20.822 Contact with and (suspected) exposure to COVID-19; Z79.899 Other long term (current) drug therapy
CPT/HCPCS: 36415; 80048; 80061; 80307; 81001; 82607; 82746; 83036; 83735; 84439; 84443; 85025; 87635; 93005; 99285; S9485

== ENCOUNTER → 2023-10-14 08:38 | Outpatient (BNV) | payer OTHER, SELFPAY | PROVIDERS: Emergency Provider Student in an Organized Health Care Education/Training Program; PCP Physician Assistant; Visit Provider Internal Medicine | DX: I45.10 Unspecified right bundle-branch block (principal) | CPT/HCPCS: 93010 ==

== ENCOUNTER → 2023-10-14 17:52 | Outpatient (BNV) | payer OTHER, SELFPAY | PROVIDERS: Admitting Provider Clinical Nurse Specialist Psychiatric/Mental Health, Adult; Emergency Provider Student in an Organized Health Care Education/Training Program; PCP Physician Assistant; Visit Provider Psychiatry & Neurology Psychiatry | DX: F33.2 Major depressive disorder, recurrent severe without psychotic features (principal); F19.10 Other psychoactive substance abuse, uncomplicated; F10.90 Alcohol use, unspecified, uncomplicated; F43.11 Post-traumatic stress disorder, acute; M54.50 Low back pain, unspecified | CPT/HCPCS: 90792; 99231; 99232; 99239; 99499 ==

== ENCOUNTER 2023-10-23 12:57 | Outpatient (AMB) | payer MEDICAID, SELFPAY ==
[2023-10-23 13:17] VITALS: BP 128/82; PULSE 60; O2SAT 97
--- NOTE | 2023-10-23 13:17 | AM.OFFVISNUR ---
Intake Vital Signs 10/23/23 13:17 BP 128/82 Blood Pressure Location Lt femoral Position Sitting Pulse 60 Pulse Source Pulse Oximeter Pulse Oximetry (%) 97 Oxygen Delivery Method Room Air Intake Visit Reasons: Intake/Walk in Allergies No Known Allergies [No Known Allergies*] Allergy (Verified 10/12/23 13:03) Coding
--- NOTE | 2023-10-23 13:20 | A.OFFVISCC_ITS ---
Vital Signs 10/23/23 13:17 BP 128/82 Blood Pressure Location Lt brachial Position Sitting Pulse 60 Pulse Source Pulse Oximeter Pulse Oximetry (%) 97 Oxygen Delivery Method Room Air Intake Visit Reasons: Intake/Walk in Allergies No Known Allergies [No Known Allergies*] Allergy (Verified 10/30/23 13:26) HPI HPI Intake/Walk in: Details: PAtient presents for intake and evaluation Recently discharged from Using percocet, PCP, cocaine, alcohol since of brother worsened 1.5 years using since 11-12 years old Percocet: Denies any other opiate use. oral use. Taking 20mg daily. Last use the 16th Almost daily on and off for years --sweats and difficulty sleeping --denies overdose PCP: prior to admission. smoke it almost daily cocaine: IN Alcohol: 3-4 pints [place] vodka no history of seizure Treatment: -[facility] admission one month ago [facility] Family History both parents -SHARDA mother and brother passed Medical History 5-6x within the last few years no surgery last stone passed PCP: Howard Hernandez last physical in July BH: -Psychiatry at [facility] awating appt -therapist at [facility] Taking suboxone 4mg TID while inpatient previously vivitrol and naltrexone po Lives with GF appts to keep him busy not working at this time [facility] Medical History (Updated 10/28/23 @ 16:06 by Carlos Hernandez PA-C) Opioid use disorder PTSD (post-traumatic stress disorder) Alcohol use disorder Kidney stone SANJUANA (generalized anxiety disorder) Asthma Polysubstance abuse MDD (major depressive disorder), recurrent episode, moderate Surgical History H/O eye surgery Family History Mother No problems noted. Father DMII (diabetes mellitus, type 2) Brother No problems noted. Brother No problems noted. Brother No problems noted. Sister No problems noted. Sister No problems noted. Sister No problems noted. Son No problems noted. Son No problems noted. Social History Household Members: None Household Members Other:: Rico lives on his own Housing: Homeless Do you presently have visiting nurse or other home services: No Alcohol intake: former Year quit: 2019 Patient Tobacco Use Status: Current everyday Tobacco user Years Smoked: 4 e-Cigarette/Vaping Use: Currently Using Second Hand Smoke Exposure: Yes Substance Use Type: Crack/Cocaine, Opiates and Other service: No Current occupational status: employed Current occupation: [employer] Sexual orientation: Straight/Heterosexual Cognitive needs: No Hearing needs: No Vision needs: No Physical Exam Vital Signs: Last Vital Signs Pulse 60 10/23/23 13:17 BP 128/82 10/23/23 13:17 Pulse Ox 97 10/23/23 13:17 Oxygen Delivery Method Room Air 10/23/23 13:17 Results AMB 14 Panel Urine Drug Screen Urine Marijuana (THC) Negative Last Edit by Destiny Mays RN on 10/23/23 13: 33 Urine Cocaine Negative Last Edit by Destiny Mays RN on 10/23/23 13:33 Urine Morphine Negative Last Edit by Destiny Mays RN on 10/23/23 13:33 Urine Methamphetamine Negative Last Edit by Destiny Mays RN on 10/23/23 13: 33 Urine Amphetamine Negative Last Edit by Destiny Mays RN on 10/23/23 13:33 Urine Benzodiazepine Negative Last Edit by Destiny Mays RN on 10/23/23 13:3 3 Urine Barbiturates Negative Last Edit by Destiny Mays RN on 10/23/23 13:33 Urine Methadone Negative Last Edit by Destiny Mays RN on 10/23/23 13:33 Urine Buprenorphine Positive Last Edit by Destiny Mays RN on 10/23/23 13:33 Urine Tricyclic Antidepressant Negative Last Edit by Destiny Mays RN on 10/23/23 13:33 Urine MDMA Negative Last Edit by Destiny Mays RN on 10/23/23 13:33 Urine Oxycodone Negative Last Edit by Destiny Mays RN on 10/23/23 13:33 Urine Phencyclidine Positive Last Edit by Destiny Mays RN on 10/23/23 13:33 Urine Propoxyphene Negative Last Edit by Destiny Mays RN on 10/23/23 13:33 Results Reviewed Results Reviewed: Laboratory Last Values POC Urine Buprenorphine Positive 10/23/23 13:16 POC Urine Morphine Negative 10/23/23 13:16 POC Urine Oxycodone Negative 10/23/23 13:16 POC Urine Methadone Negative 10/23/23 13:16 POC Urine Propoxyphene Negative 10/23/23 13:16 POC Urine Barbiturates Negative 10/23/23 13:16 POC U Tricyclic Antidpr Negative 10/23/23 13:16 POC Urine PCP Positive 10/23/23 13:16 POC Ur Amphetamines Negative 10/23/23 13:16 POC Ur Methamphetamine Negative 10/23/23 13:16 POC Urine MDMA Negative 10/23/23 13:16 POC Ur Benzodiazepine Negative 10/23/23 13:16 POC Urine Cocaine Negative 10/23/23 13:16 POC Ur Marijuana (THC) Negative 10/23/23 13:16 Assessment & Plan Assessment & Plan (1) Opioid use disorder: Code(s): F11.90 - Opioid use, unspecified, uncomplicated Category: Medical Plan: * suboxone 2mg BID * follow up BID * narcan provided Orders: Orders AMB 14 Panel Urine Drug Screen 10/23/23 F19.10 - Other psychoactive substance abuse, uncomplicated Medications: New docusate sodium (Colace) 100 mg PO BID 60 caps 0RF buprenorphine-naloxone 2-0.5 mg (Suboxone) 1 film sublingual BID 14 ea 0RF acamprosate 666 mg (2 x 333 mg) PO TID 180 tabs 0RF
--- NOTE | 2023-10-23 13:31 | AM.OFFVISNUR ---
Intake Vital Signs 10/23/23 13:17 BP 128/82 Blood Pressure Location Lt brachial Position Sitting Pulse 60 Pulse Source Pulse Oximeter Pulse Oximetry (%) 97 Oxygen Delivery Method Room Air Intake Visit Reasons: Intake/Walk in Allergies No Known Allergies [No Known Allergies*] Allergy (Verified 10/12/23 13:03) Results AMB 14 Panel Urine Drug Screen Urine Marijuana (THC) Negative Last Edit by Destiny Mays RN on 10/23/23 13:33 Urine Cocaine Negative Last Edit by Destiny Mays RN on 10/23/23 13:33 Urine Morphine Negative Last Edit by Destiny Mays RN on 10/23/23 13:33 Urine Methamphetamine Negative Last Edit by Destiny Mays RN on 10/23/23 13:33 Urine Amphetamine Negative Last Edit by Destiny Mays RN on 10/23/23 13:33 Urine Benzodiazepine Negative Last Edit by Destiny Mays RN on 10/23/23 13:33 Urine Barbiturates Negative Last Edit by Destiny Mays RN on 10/23/23 13:33 Urine Methadone Negative Last Edit by Destiny Mays RN on 10/23/23 13:33 Urine Buprenorphine Positive Last Edit by Destiny Mays RN on 10/23/23 13:33 Urine Tricyclic Antidepressant Negative Last Edit by Destiny Mays RN on 10/23/23 13:33 Urine MDMA Negative Last Edit by Destiny Mays RN on 10/23/23 13:33 Urine Oxycodone Negative Last Edit by Destiny Mays RN on 10/23/23 13:33 Urine Phencyclidine Positive Last Edit by Destiny Mays RN on 10/23/23 13:33 Urine Propoxyphene Negative Last Edit by Destiny Mays RN on 10/23/23 13:33 Coding Diagnoses Polysubstance abuse F19.10 Assessment & Plan Assessment & Plan (1) Polysubstance abuse: Comment: Daily PCP, cocaine, Percocet, alcohol abuse Code(s): F19.10 - Other psychoactive substance abuse, uncomplicated Category: Medical Orders: Orders AMB 14 Panel Urine Drug Screen Today F19.10 - Other psychoactive substance abuse, uncomplicated
== END 2023-10-23 14:06 | disposition home or self-care (01) ==
PROVIDERS: PCP Physician Assistant; Visit Provider Nurse Practitioner Psychiatric/Mental Health
DX: F11.90 Opioid use, unspecified, uncomplicated (principal)
CPT/HCPCS: 99204

== ENCOUNTER → 2023-10-23 12:57 | Outpatient (BNVA) | payer OTHER, SELFPAY | PROVIDERS: PCP Physician Assistant; Visit Provider Nurse Practitioner Psychiatric/Mental Health | DX: F19.10 Other psychoactive substance abuse, uncomplicated (principal) | CPT/HCPCS: 80305; 99212 ==

== ENCOUNTER 2023-10-28 15:36 | Outpatient (AMB) | payer OTHER, SELFPAY ==
[2023-10-28 15:41] VITALS: BP 100/56; PULSE 82; O2SAT 97; BMI 31.5
--- NOTE | 2023-10-28 15:41 | A.OFFPC_ITS ---
Vital Signs 10/28/23 15:41 Height 5 ft 9 in Weight 213 lb BMI 31.5 Blood Pressure Location Lt brachial Position Sitting Pulse Source Pulse Oximeter Oxygen Delivery Method Room Air Intake Visit Reasons: Visit regarding my depression and anxiety Light Equipment Operator Required: No Accompanied by: Self / Same As Patient Allergies No Known Allergies [No Known Allergies*] Allergy (Verified 10/28/23 15:41) Tobacco use date assessed: 08/18/23 Dental Screening Dental Screen Date: 08/18/23 [facility] Medical History (Updated 10/26/23 @ 00:02 by Bob Coppola) Opioid use disorder PTSD (post-traumatic stress disorder) Alcohol use disorder Kidney stone SANJUANA (generalized anxiety disorder) Asthma Polysubstance abuse MDD (major depressive disorder), recurrent episode, moderate Surgical History H/O eye surgery Family History Mother No problems noted. Father DMII (diabetes mellitus, type 2) Brother No problems noted. Brother No problems noted. Brother No problems noted. Sister No problems noted. Sister No problems noted. Sister No problems noted. Son No problems noted. Son No problems noted. Social History Household Members: None Household Members Other:: Rico lives on his own Housing: Homeless Do you presently have visiting nurse or other home services: No Alcohol intake: former Year quit: 2020 Patient Tobacco Use Status: Current everyday Tobacco user Years Smoked: 4 e-Cigarette/Vaping Use: Currently Using Second Hand Smoke Exposure: Yes Substance Use Type: Crack/Cocaine, Opiates and Other service: No Current occupational status: employed Current occupation: [employer] Sexual orientation: Straight/Heterosexual Cognitive needs: No Hearing needs: No Vision needs: No Questionnaire Thrive Questionnaire Date Thrive assessed: 10/16/23 SANJUANA-7 AMB Questionnaire SANJUANA-7 Date SANJUANA - 7 assessed: 08/18/23 Source: Developed by Drs. Abel Velasquez, Jennifer Rodríguez, Dionisio Driscoll and colleagues, with an educational john from [employer]. Physical exam (Primary Care) Tobacco/Smoking Status: Tobacco use Status Tobacco use date assessed 08/18/23 08/18/23 10:26 Patient Tobacco Use Status Current everyday Tobacco 10/18/23 17:34 e-Cigarette/Vaping Use Currently Using 10/14/23 22:50 Thrive Assessment: Date of Thrive Assessment Date Thrive assessed 10/16/23 10/20/23 11:09 Coding
--- NOTE | 2023-10-28 15:45 | A.OFFPC_ITS ---
Vital Signs 10/28/23 15:41 Height 5 ft 9 in Weight 213 lb BMI 31.5 BP 100/56 L Blood Pressure Location Lt brachial Position Sitting Pulse 82 Pulse Source Pulse Oximeter Pulse Oximetry (%) 97 Oxygen Delivery Method Room Air Intake Visit Reasons: Visit regarding my depression and anxiety Manufacturing Engineering Manager Required: No Accompanied by: Self / Same As Patient Allergies No Known Allergies [No Known Allergies*] Allergy (Verified 10/28/23 15:55) Medication List - Last Reconciled 10/28/23 by Carlos Hernandez PA-C acamprosate 666 mg (2 x 333 mg) PO TID buprenorphine-naloxone 2-0.5 mg (Suboxone) 1 film sublingual BID clonidine HCl 0.1 mg PO BID PRN 30 days docusate sodium (Colace) 100 mg PO BID duloxetine (Cymbalta) 60 mg (2 x 30 mg) PO DAILY 30 days hydroxyzine HCl 25 mg PO Q6H PRN 30 days melatonin 5 mg PO BEDTIME PRN pyridoxine (vitamin B6) 50 mg PO DAILY 30 days tamsulosin 0.4 mg PO BEDTIME trazodone 50 mg PO BEDTIME PRN 30 days Tobacco use date assessed: 08/18/23 Dental Screening Dental Screen Date: 08/18/23 HPI Visit regarding my depression and anxiety HPI Details Patient is a 38-year-old male here today for a psychiatric hospitalization follow-up. He was experiencing suicidal ideations, admitted to having thoughts of utilizing a knife to end his life. He does admit to drinking alcohol in excess and using PCP. Patient has been started on several different mental health medications for his depression, anxiety and PTSD. He has also been established with addiction treatment technician and was started on both Suboxone and a compensate for opiate use disorder and alcohol use disorder. He reports he is feeling much better and has a more positive outlook on life. He is getting established with [facility] to get a mental therapist and a psychiatrist in near future. PENDING SALE TO [facility] Medical History (Updated 10/28/23 @ 16:06 by Carlos Hernandez PA-C) Opioid use disorder PTSD (post-traumatic stress disorder) Alcohol use disorder Kidney stone SANJUANA (generalized anxiety disorder) Asthma Polysubstance abuse MDD (major depressive disorder), recurrent episode, moderate Surgical History H/O eye surgery Family History Mother No problems noted. Father DMII (diabetes mellitus, type 2) Brother No problems noted. Brother No problems noted. Brother No problems noted. Sister No problems noted. Sister No problems noted. Sister No problems noted. Son No problems noted. Son No problems noted. Social History Household Members: None Household Members Other:: Rico lives on his own Housing: Homeless Do you presently have visiting nurse or other home services: No Alcohol intake: former Year quit: 2019 Patient Tobacco Use Status: Current everyday Tobacco user Years Smoked: 4 e-Cigarette/Vaping Use: Currently Using Second Hand Smoke Exposure: Yes Substance Use Type: Crack/Cocaine, Opiates and Other service: No Current occupational status: employed Current occupation: [employer] Sexual orientation: Straight/Heterosexual Cognitive needs: No Hearing needs: No Vision needs: No Questionnaire Thrive Questionnaire Date Thrive assessed: 10/16/23 SANJUANA-7 AMB Questionnaire SANJUANA-7 Date SANJUANA - 7 assessed: 08/18/23 Source: Developed by Drs. Abel Velasquez, Jennifer Rodríguez, Dionisio Driscoll and colleagues, with an educational john from [employer]. Review of Systems Const Denies headache(s) Eyes Denies loss of vision ENT Denies vertigo, Denies dizziness, Denies headache(s) and Denies sore throat Card Denies chest pain, Denies leg edema and Denies lightheadedness Resp Denies cough, Denies hemoptysis and Denies wheezing GI Denies abdominal pain, Denies melena, Denies constipation, Denies diarrhea and Denies vomiting Denies dysuria, Denies urinary frequency and Denies urinary urgency Musc Denies arthralgias, Denies joint swelling, Denies numbness and Denies tingling Neuro Denies Abnormal speech present, Denies behavioral changes, Denies vertigo, Denies dizziness, Denies headache(s), Denies loss of vision, Denies memory loss, Denies numbness and Denies tingling Psych Denies anxiety, Denies behavioral changes, Denies depression, Denies memory loss and Denies panic attacks Daniel/Lymph Denies easy bleeding and Denies easy bruising Aller/Immun Denies wheezing Physical exam (Primary Care) Vital Signs: Last Vital Signs Pulse 82 10/28/23 15:41 BP 100/56 L 10/28/23 15:41 Pulse Ox 97 10/28/23 15:41 Oxygen Delivery Method Room Air 10/28/23 15:41 BMI result Body Mass Index 31.5 Tobacco/Smoking Status: Tobacco use Status Tobacco use date assessed 08/18/23 10/28/23 15:51 Patient Tobacco Use Status Current everyday Tobacco 10/28/23 15:51 e-Cigarette/Vaping Use Currently Using 10/28/23 15:51 Thrive Assessment: Date of Thrive Assessment Date Thrive assessed 10/16/23 10/28/23 15:51 Const General: healthy appearing, no acute distress, alert and awake Nutritional Appearance: well nourished Orientation/consciousness: oriented to person, oriented to place and oriented to time HENMT Ears: TM's normal bilaterally General nose exam: Normal nasal mucous membranes and turbinates present Eyes Conjunctivae: conjunctivae normal Sclerae: sclerae normal Pupils: Equal, round and reactive pupils present Neck Neck: Yes no lymphadenopathy and Yes no JVD Thyroid: Thyroid normal Carotids: no bruits Resp Effort & Inspection: normal respiratory effort and not tachypneic Auscultation: no crackles, no rales, no rhonchi and no wheezes Cardio Rate: regular rate Rhythm: regular rhythm Heart sounds: no murmurs and normal S1 and S2 GI Palpation (GI): Soft to palpation, nontender, no hepatomegaly and no splenomegaly Auscultation: normal bowel sounds Skin General skin exam: no rashes or lesions noted and dry skin Neuro General: oriented to person, oriented to place and oriented to time Cranial nerves: Yes Equal, round and reactive pupils present Speech: No Abnormal speech present Gait exam (Neuro): Normal gait present Motor exam (neuro): no tremor noted Extrem Right upper extremity: full ROM Left upper extremity: full ROM Right lower extremity: full ROM; no edema Left lower extremity: full ROM; no edema Psych Mental Status: mental status grossly normal Speech and movement: Normal speech and movement present Affect: normal affect Attitude: cooperative Thought process: Normal thought process present Assessment and Plan Assessment & Plan (1) Major depressive disorder: Code(s): F32.9 - Major depressive disorder, single episode, unspecified Qualifiers: Active/Remission status: currently active Major depression episode severity: moderate Major depression recurrence: recurrent Qualified Code(s): F33.1 - Major depressive disorder, recurrent, moderate Plan: As above. Now feels a lot more stable on mental health medications. (2) Alcohol use disorder: Code(s): F10.90 - Alcohol use, unspecified, uncomplicated Plan: Now in early remission, Patient is now seeing [facility]. Has been started on acomprosate TID. Has been sober from alcohol a few weeks. (3) Opioid use disorder: Code(s): F11.90 - Opioid use, unspecified, uncomplicated Plan: Now in remission, Now seeing the [facility] and has started on Suboxone (4) PTSD (post-traumatic stress disorder): Code(s): F43.10 - Post-traumatic stress disorder, unspecified Plan: Has PTSD. Is trying to establish care at [facility] with a mental therapist and eventually psychiatrist. Has been started on clonidine, trazodone, Cymbalta. Medications: Changed From tamsulosin 0.4 mg PO BEDTIME 30 days 30 caps 0RF To tamsulosin 0.4 mg PO BEDTIME Addy Swan MD From melatonin 5 mg PO BEDTIME PRN Insomnia F43.10 - Post-traumatic stress disorder, unspecified To melatonin 5 mg PO BEDTIME PRN 90 tabs 1RF Insomnia 90 days F43.10 - Post- traumatic stress disorder, unspecified Carlos Hernandez PA-C Refilled duloxetine (Cymbalta) 60 mg (2 x 30 mg) PO DAILY 60 caps 3RF 30 days Carlos Hernandez PA-C F32.9 - Major depressive disorder, single episode, unspecified clonidine HCl 0.1 mg PO BID PRN 90 tabs 3RF Anxiety 30 days BRIDGET Higgins F43.10 - Post-traumatic stress disorder, unspecified hydroxyzine HCl 25 mg PO Q6H PRN 60 tabs 3RF Anxiety 30 days Carlos Hernandez PA-C F43.10 - Post-traumatic stress disorder, unspecified trazodone 50 mg PO BEDTIME PRN 30 tabs 3RF Insomnia 30 days Cralos [place], PA- C F32.9 - Major depressive disorder, single episode, unspecified Coding Level of Care Code Est Pt Level 4 (20447) Diagnoses Moderate episode of recurrent major depressive disorder F33.1 Active/Remission status: currently active Major depression episode severity: moderate Major depression recurrence: recurrent Alcohol use disorder F10.90 Opioid use disorder F11.90 PTSD (post-traumatic stress disorder) F43.10
== END 2023-10-28 16:24 | disposition home or self-care (01) ==
PROVIDERS: PCP Physician Assistant; Visit Provider Physician Assistant
DX: F33.1 Major depressive disorder, recurrent, moderate (principal); F10.90 Alcohol use, unspecified, uncomplicated; F11.90 Opioid use, unspecified, uncomplicated; F43.10 Post-traumatic stress disorder, unspecified
CPT/HCPCS: 99214

== ENCOUNTER 2023-10-30 13:24 | Outpatient (AMB) | payer OTHER, SELFPAY ==
--- NOTE | 2023-10-30 13:23 | A.OFFVISCC_ITS ---
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, concerned for drug test (suboxone), and concerned for background check He was unable to slat pickler docusate due to co-pay Had a physical this week Had a second therapy appointment with [facility] and reports they are expediting a psych prescriber for him Is trying to keep busy Has remained substance free since last visit Feels as though his films run out too quickly after he takes one and he experiences mild withdrawal symptoms HPI Comments Details: Patient presents for [facility] visit [facility] Medical History (Updated 10/28/23 @ 16:06 by Carlos Hernandez PA-C) Opioid use disorder PTSD (post-traumatic stress disorder) Alcohol use disorder Kidney stone SANJUANA (generalized anxiety disorder) Asthma Polysubstance abuse MDD (major depressive disorder), recurrent episode, moderate Surgical History H/O eye surgery Family History Mother No problems noted. Father DMII (diabetes mellitus, type 2) Brother No problems noted. Brother No problems noted. Brother No problems noted. Sister No problems noted. Sister No problems noted. Sister No problems noted. Son No problems noted. Son No problems noted. Social History Household Members: None Household Members Other:: Rico lives on his own Housing: Homeless Do you presently have visiting nurse or other home services: No Alcohol intake: former Year quit: 2019 Patient Tobacco Use Status: Current everyday Tobacco user Years Smoked: 4 e-Cigarette/Vaping Use: Currently Using Second Hand Smoke Exposure: Yes Substance Use Type: Crack/Cocaine, Opiates and Other service: No Current occupational status: employed Current occupation: [employer] Sexual orientation: Straight/Heterosexual Cognitive needs: No Hearing needs: No Vision needs: No Review of Systems Const Reports as per HPI Physical Exam Vital Signs: Last Vital Signs Pulse 60 10/30/23 13:26 BP 140/92 H 10/30/23 13:26 Pulse Ox 97 10/30/23 13:26 Oxygen Delivery Method Room Air 10/30/23 13:26 Const General: cooperative and no acute distress Resp Effort & Inspection: normal respiratory effort and able to speak in complete sentences Psych Appearance: grossly normal Mental Status: mental status grossly normal Speech and movement: Normal speech and movement present Affect: normal affect Attitude: cooperative Thought process: Normal thought process present Assessment & Plan Assessment & Plan (1) Opioid use disorder: Code(s): F11.90 - Opioid use, unspecified, uncomplicated Category: Medical Plan: -Mass pat reviewed -Suboxone dose adjusted to TID to give him longer coverage (2) Alcohol use disorder: Code(s): F10.90 - Alcohol use, unspecified, uncomplicated Category: Medical Plan: -Continue campral, he is tolerating well, no refill needed at this time -He has been abstaining from alcohol and trying to keep busy -Follow up 1 week Medications: Changed From buprenorphine-naloxone 2-0.5 mg (Suboxone) 1 film sublingual BID 14 ea 0RF To buprenorphine-naloxone 2-0.5 mg (Suboxone) 1 film sublingual TID 21 ea 0RF
[2023-10-30 13:26] VITALS: BP 140/92; PULSE 60; O2SAT 97
== END 2023-10-30 13:44 | disposition home or self-care (01) ==
PROVIDERS: PCP Physician Assistant; Visit Provider Nurse Practitioner Family
DX: F11.90 Opioid use, unspecified, uncomplicated (principal); F10.90 Alcohol use, unspecified, uncomplicated
CPT/HCPCS: 99213

== ENCOUNTER → 2023-10-30 13:24 | Outpatient (BNVA) | payer OTHER, SELFPAY | PROVIDERS: PCP Physician Assistant; Visit Provider Nurse Practitioner Family | DX: F19.10 Other psychoactive substance abuse, uncomplicated (principal); F10.20 Alcohol dependence, uncomplicated | CPT/HCPCS: 99212 ==

== ENCOUNTER 2023-11-05 09:43 | Outpatient (AMB) | payer OTHER, SELFPAY ==
[2023-11-05 09:44] VITALS: BP 130/82; PULSE 60; O2SAT 93
--- NOTE | 2023-11-05 09:44 | A.OFFVISCC_ITS ---
Vital Signs 11/05/23 09:44 BP 130/82 Blood Pressure Location Rt brachial Position Sitting Pulse 60 Pulse Source Pulse Oximeter Pulse Oximetry (%) 93 Oxygen Delivery Method Room Air Intake Visit Reasons: MAT Visit Allergies No Known Allergies [No Known Allergies*] Allergy (Verified 10/30/23 13:26) HPI HPI MAT Visit: Details: Patient presents for OUD treatment and follow up He is prescribed suboxone 2mg TID, but started taking 2 2mg films BID due to cravings and experiencing restless legs at night. He feels as though this has been helpful, does report he is still having some cravings occasionally usually triggered by stressful events. He has been attempting to connect with [facility] to establish care for therapy but has been unsuccessful Would like a referral to [facility] Continues to wait to hear back if he got the job he interviewed for last week. Continues to experience mild constipation, is able to move his bowels with difficulty HPI Comments Details: Patient presents for MAT visit [facility] Medical History (Updated 10/28/23 @ 16:06 by Carlos Hernandez PA-C) Opioid use disorder PTSD (post-traumatic stress disorder) Alcohol use disorder Kidney stone SANJUANA (generalized anxiety disorder) Asthma Polysubstance abuse MDD (major depressive disorder), recurrent episode, moderate Surgical History H/O eye surgery Family History Mother No problems noted. Father DMII (diabetes mellitus, type 2) Brother No problems noted. Brother No problems noted. Brother No problems noted. Sister No problems noted. Sister No problems noted. Sister No problems noted. Son No problems noted. Son No problems noted. Social History Household Members: None Household Members Other:: Rico lives on his own Housing: Homeless Do you presently have visiting nurse or other home services: No Alcohol intake: former Year quit: 2019 Patient Tobacco Use Status: Current everyday Tobacco user Years Smoked: 4 e-Cigarette/Vaping Use: Currently Using Second Hand Smoke Exposure: Yes Substance Use Type: Crack/Cocaine, Opiates and Other service: No Current occupational status: employed Current occupation: [employer] Sexual orientation: Straight/Heterosexual Cognitive needs: No Hearing needs: No Vision needs: No Review of Systems Const Reports as per HPI Physical Exam Vital Signs: Last Vital Signs Pulse 60 11/05/23 09:44 BP 130/82 11/05/23 09:44 Pulse Ox 93 11/05/23 09:44 Oxygen Delivery Method Room Air 11/05/23 09:44 Const General: cooperative and no acute distress Resp Effort & Inspection: normal respiratory effort and able to speak in complete sentences Psych Appearance: grossly normal Mental Status: mental status grossly normal Speech and movement: Normal speech and movement present Affect: normal affect Attitude: cooperative Thought process: Normal thought process present Assessment & Plan Assessment & Plan (1) Opioid use disorder: Code(s): F11.90 - Opioid use, unspecified, uncomplicated Category: Medical Plan: -Mass pat reviewed -Dose adjusted from 2mg TID to 4mg BID, discussed with him increasing in small increments only, to find appropriate dose -Advised him to trial Miralax to stimulate bowel movements in addition to taking the docusate. Reviewed with him to only take miralax until he achieves regular bowel movements, but to continue the docusate as prescribed -B-complex vitamin sent to pharmacy, educated pt it contains both folic acid and thiamine -Follow up 1 week (2) Major depressive disorder: Code(s): F32.9 - Major depressive disorder, single episode, unspecified Category: Medical Qualifiers: Active/Remission status: currently active Major depression episode severity: moderate Major depression recurrence: recurrent Qualified Code(s): F33.1 - Major depressive disorder, recurrent, moderate Plan: -Open counseling referral from July to [facility], plan to follow up with [facility] Medications: New buprenorphine-naloxone 4-[address] 1 strip/tab under (each) side of tongue 1 film buccal BID 14 ea 0RF B-complex with vitamin C 1 tab PO DAILY 90 tabs 0RF Discontinued buprenorphine-naloxone 2-0.5 mg (Suboxone) Discontinued Reason: None 1 film sublingual TID 21 ea 0RF
== END 2023-11-05 10:29 | disposition home or self-care (01) ==
PROVIDERS: PCP Physician Assistant; Visit Provider Nurse Practitioner Family
DX: F11.90 Opioid use, unspecified, uncomplicated (principal); F33.1 Major depressive disorder, recurrent, moderate
CPT/HCPCS: 99213

== ENCOUNTER → 2023-11-05 09:43 | Outpatient (BNVA) | payer OTHER, SELFPAY | PROVIDERS: PCP Physician Assistant; Visit Provider Nurse Practitioner Family | DX: F11.20 Opioid dependence, uncomplicated (principal); F32.9 Major depressive disorder, single episode, unspecified | CPT/HCPCS: 99212 ==

== ENCOUNTER 2023-11-14 11:08 | Outpatient (AMB) | payer OTHER, SELFPAY ==
--- NOTE | 2023-11-14 13:44 | A.OFFVISCC_ITS ---
Intake Visit Reasons: Telehealth Allergies No Known Allergies [No Known Allergies*] Allergy (Verified 10/30/23 13:26) [facility] Telehealth: Details: Patient presents for follow up via telelhealth Suboxone dose increased to 12mg QD on Thursday 11/09 (advised to take 1/2 film BID) Today patient reports he is out of films one day I took 4 films He reports taking extra when he felt he needed to, this field underwriter reinforced that taking medication as prescribed is important to not only figure out appropriate dosing, but also because there are constraints to filling medications early When asked about decision to take more than prescribed, he identified feeling sore due to starting a new job, feeling anxious. He was encouraged to utilize other strategies to address anxiety--breathing, distraction, PRN medications [facility] Medical History (Updated 10/28/23 @ 16:06 by Carlos Hernandez PA-C) Opioid use disorder PTSD (post-traumatic stress disorder) Alcohol use disorder Kidney stone SANJUANA (generalized anxiety disorder) Asthma Polysubstance abuse MDD (major depressive disorder), recurrent episode, moderate Surgical History H/O eye surgery Family History Mother No problems noted. Father DMII (diabetes mellitus, type 2) Brother No problems noted. Brother No problems noted. Brother No problems noted. Sister No problems noted. Sister No problems noted. Sister No problems noted. Son No problems noted. Son No problems noted. Social History Household Members: None Household Members Other:: Rico lives on his own Housing: Homeless Do you presently have visiting nurse or other home services: No Alcohol intake: former Year quit: 2019 Patient Tobacco Use Status: Current everyday Tobacco user Years Smoked: 4 e-Cigarette/Vaping Use: Currently Using Second Hand Smoke Exposure: Yes Substance Use Type: Crack/Cocaine, Opiates and Other service: No Current occupational status: employed Current occupation: [employer] Sexual orientation: Straight/Heterosexual Cognitive needs: No Hearing needs: No Vision needs: No Review of Systems Const Reports as per [facility] Telehealth Telehealth Telehealth Platform: Telephone Location of provider rendering services: practice address Location of patient: address on file Patient Identification confirmed using: Name, : Yes Telehealth method: voice only Patient verbally consented to treatment: Yes Patient verbally consented to billing insurance company: Yes Minutes spent on Phone/Video with Pt.: 25 Assessment & Plan Assessment & Plan (1) Opioid use disorder: Code(s): F11.90 - Opioid use, unspecified, uncomplicated Category: Medical Plan: * unable to refill suboxone as he was provided a 10 day supply on Friday and is out as of yesterday * overdose preventions discussion * discussed sublocade injection to address more steady dosing--patient will consider * follow up next week * increase in dose is not appropriate at this time as patient has not taken medication as prescribed since starting it. UDS was negative for opiates and patient at time of admission to BH unit, so need for high doses of buprenorphine are not warranted. Medications: New ibuprofen 600 mg PO Q8H PRN 30 tabs 0RF pain
== END 2023-11-14 13:51 | disposition home or self-care (01) ==
PROVIDERS: PCP Physician Assistant; Visit Provider Nurse Practitioner Psychiatric/Mental Health
DX: F11.90 Opioid use, unspecified, uncomplicated (principal)
CPT/HCPCS: 99214

== ENCOUNTER → 2023-11-14 11:08 | Outpatient (BNVA) | payer OTHER, SELFPAY | PROVIDERS: PCP Physician Assistant; Visit Provider Nurse Practitioner Psychiatric/Mental Health ==

== ENCOUNTER 2023-11-21 11:21 | Outpatient (AMB) | payer OTHER, SELFPAY ==
[2023-11-21 11:24] VITALS: BP 126/84; PULSE 89; O2SAT 97
--- NOTE | 2023-11-21 11:24 | A.OFFVISCC_ITS ---
Vital Signs 11/21/23 11:24 BP 126/84 Blood Pressure Location Rt brachial Position Sitting Pulse 89 Pulse Source Pulse Oximeter Pulse Oximetry (%) 97 Oxygen Delivery Method Room Air Intake Visit Reasons: MAT Visit Allergies No Known Allergies [No Known Allergies*] Allergy (Verified 10/30/23 13:26) HPI HPI MAT Visit: Details: Patient reports he started work last week Was without suboxone for 2-3 days due to overtaking, reports he was feeling sick, nauseated, aches in bones when he was out and was wondering if that was because he had no suboxone States he had a court date yesterday, his urine tested positive for Bup, states he was told by someone at the court that his numbers needed to go down before his next court date in January He has still been overtaking his med, has only 1/2 film out of 7-day supply left Says he takes them when he feels bad T/w re-educated pt about taking his suboxone as prescribed, encouraged him to call the office if he had any questions or if he was feels withdrawal symptoms He denies any new stressors, denies decrease in mood He is unable to identify what triggers him to be feeling bad Discussed with him trying to take one of his anxiety medications next time he is tempted to take a film He expressed some libido concerns that were new to him since starting all of the medications HPI Comments Details: Patient presents for MAT visit [facility] Medical History (Updated 10/28/23 @ 16:06 by Carlos Hernandez PA-C) Opioid use disorder PTSD (post-traumatic stress disorder) Alcohol use disorder Kidney stone SANJUANA (generalized anxiety disorder) Asthma Polysubstance abuse MDD (major depressive disorder), recurrent episode, moderate Surgical History H/O eye surgery Family History Mother No problems noted. Father DMII (diabetes mellitus, type 2) Brother No problems noted. Brother No problems noted. Brother No problems noted. Sister No problems noted. Sister No problems noted. Sister No problems noted. Son No problems noted. Son No problems noted. Social History Household Members: None Household Members Other:: Rico lives on his own Housing: Homeless Do you presently have visiting nurse or other home services: No Alcohol intake: former Year quit: 2019 Patient Tobacco Use Status: Current everyday Tobacco user Years Smoked: 4 e-Cigarette/Vaping Use: Currently Using Second Hand Smoke Exposure: Yes Substance Use Type: Crack/Cocaine, Opiates and Other service: No Current occupational status: employed Current occupation: [employer] Sexual orientation: Straight/Heterosexual Cognitive needs: No Hearing needs: No Vision needs: No Review of Systems Const Reports as per HPI Physical Exam Vital Signs: Last Vital Signs Pulse 89 11/21/23 11:24 BP 126/84 11/21/23 11:24 Pulse Ox 97 11/21/23 11:24 Oxygen Delivery Method Room Air 11/21/23 11:24 Const General: cooperative and no acute distress Resp Effort & Inspection: normal respiratory effort and able to speak in complete sentences Psych Appearance: grossly normal Mental Status: mental status grossly normal Speech and movement: Normal speech and movement present Affect: normal affect Attitude: cooperative Thought process: Normal thought process present Results AMB 14 Panel Urine Drug Screen Urine Marijuana (THC) Negative Last Edit by Catia Luis CMA on 11/21/23 11 :39 Urine Cocaine Negative Last Edit by Catia Luis CMA on 11/21/23 11:39 Urine Morphine Negative Last Edit by Catia Luis CMA on 11/21/23 11:39 Urine Methamphetamine Negative Last Edit by Catia Luis CMA on 11/21/23 11 :39 Urine Amphetamine Negative Last Edit by Catia Luis CMA on 11/21/23 11:39 Urine Benzodiazepine Negative Last Edit by Catia Luis CMA on 11/21/23 11: 39 Urine Barbiturates Negative Last Edit by Catia Luis CMA on 11/21/23 11:39 Urine Methadone Negative Last Edit by Catia Luis CMA on 11/21/23 11:39 Urine Buprenorphine Positive Last Edit by Catia Luis CMA on 11/21/23 11:3 9 Urine Tricyclic Antidepressant Negative Last Edit by Catia Luis CMA on 11/21/23 11:39 Urine MDMA Negative Last Edit by Catia Luis CMA on 11/21/23 11:39 Urine Oxycodone Negative Last Edit by Catia Luis CMA on 11/21/23 11:39 Urine Phencyclidine Negative Last Edit by Catia Luis CMA on 11/21/23 11:3 9 Urine Propoxyphene Negative Last Edit by Catia Luis CMA on 11/21/23 11:39 Results Reviewed Results Reviewed: Laboratory Last Values POC Urine Buprenorphine Positive 11/21/23 11:38 POC Urine Morphine Negative 11/21/23 11:38 POC Urine Oxycodone Negative 11/21/23 11:38 POC Urine Methadone Negative 11/21/23 11:38 POC Urine Propoxyphene Negative 11/21/23 11:38 POC Urine Barbiturates Negative 11/21/23 11:38 POC U Tricyclic Antidpr Negative 11/21/23 11:38 POC Urine PCP Negative 11/21/23 11:38 POC Ur Amphetamines Negative 11/21/23 11:38 POC Ur Methamphetamine Negative 11/21/23 11:38 POC Urine MDMA Negative 11/21/23 11:38 POC Ur Benzodiazepine Negative 11/21/23 11:38 POC Urine Cocaine Negative 11/21/23 11:38 POC Ur Marijuana (THC) Negative 11/21/23 11:38 Assessment & Plan Assessment & Plan (1) Opioid use disorder: Code(s): F11.90 - Opioid use, unspecified, uncomplicated Category: Medical Plan: -Reviewed with pt consequences of not taking suboxone as prescribed. Reminded him insurance has strict rules about picking meds up early, also discussed with him dangers of withdrawal if he runs out too early due to overtaking. 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 -Follow up 1 week Orders: Orders AMB 14 Panel Urine Drug Screen 11/21/23 Z51.81 - Encounter for therapeutic drug level monitoring Medications: Refilled buprenorphine-naloxone 12-3 mg (Suboxone) 1 film buccal Q24H 7 ea 0RF
== END 2023-11-21 11:58 | disposition home or self-care (01) ==
PROVIDERS: PCP Physician Assistant; Visit Provider Nurse Practitioner Family
DX: F11.90 Opioid use, unspecified, uncomplicated (principal)
CPT/HCPCS: 99213

== ENCOUNTER → 2023-11-21 11:21 | Outpatient (BNVA) | payer OTHER, SELFPAY | PROVIDERS: PCP Physician Assistant; Visit Provider Nurse Practitioner Family | DX: Z51.81 Encounter for therapeutic drug level monitoring (principal); F11.20 Opioid dependence, uncomplicated | CPT/HCPCS: 80305; 99212 ==

== ENCOUNTER 2023-12-17 10:26 | Outpatient (AMB) | payer OTHER, SELFPAY ==
[2023-12-17 10:29] VITALS: BP 118/68; PULSE 82; O2SAT 95; BMI 31.2
--- NOTE | 2023-12-17 10:29 | A.OFFPC_ITS ---
Vital Signs 12/17/23 10:29 Height 5 ft 9 in Weight 211 lb BMI 31.2 BP 118/68 Blood Pressure Location Lt brachial Position Sitting Pulse 82 Pulse Source Pulse Oximeter Pulse Oximetry (%) 95 Oxygen Delivery Method Room Air Intake Visit Reasons: F/u depression Die Maker Stamping Required: No Accompanied by: Self / Same As Patient Allergies No Known Allergies [No Known Allergies*] Allergy (Verified 12/17/23 10:46) Medication List - Last Reconciled 12/17/23 by Carlos Hernandez PA-C acamprosate 666 mg (2 x 333 mg) PO TID B-complex with vitamin C 1 tab PO DAILY buprenorphine-naloxone 12-3 mg (Suboxone) 1 film buccal Q24H clonidine HCl 0.1 mg PO BID PRN 30 days docusate sodium 100 mg PO BID duloxetine (Cymbalta) 60 mg (2 x 30 mg) PO DAILY 30 days hydroxyzine HCl 25 mg PO Q6H PRN 30 days ibuprofen 600 mg PO Q8H PRN melatonin 5 mg PO BEDTIME PRN 90 days pyridoxine (vitamin B6) 50 mg PO DAILY 30 days tamsulosin 0.4 mg PO BEDTIME trazodone 50 mg PO BEDTIME PRN 30 days Tobacco use date assessed: 08/18/23 Dental Screening Dental Screen Date: 08/18/23 HPI F/u depression HPI Details Patient is a 38-year-old male here today for a follow-up. Patient has been started on several different mental health medications for his depression, anxiety and PTSD and polysubstance use disorder. Lost his job due to his felony record, this has caused him a bit more depression. He has also lost his apartment due to financial reasons.. He does admit to some relapses with drug use and alcohol. Still going to the [facility] and continues on Suboxone. He is still looking for job and has not lost hope. He is applying for disability due to his mental health diagnoses. Opiate use disorder: Continues to [facility], he continues on Suboxone. [facility] Medical History Opioid use disorder PTSD (post-traumatic stress disorder) Alcohol use disorder Kidney stone SANJUANA (generalized anxiety disorder) Asthma Polysubstance abuse MDD (major depressive disorder), recurrent episode, moderate Surgical History H/O eye surgery Family History Mother No problems noted. Father DMII (diabetes mellitus, type 2) Brother No problems noted. Brother No problems noted. Brother No problems noted. Sister No problems noted. Sister No problems noted. Sister No problems noted. Son No problems noted. Son No problems noted. Social History Household Members: None Household Members Other:: Rico lives on his own Housing: Homeless Do you presently have visiting nurse or other home services: No Alcohol intake: former Year quit: 2019 Patient Tobacco Use Status: Current everyday Tobacco user Years Smoked: 4 e-Cigarette/Vaping Use: Currently Using Second Hand Smoke Exposure: Yes Substance Use Type: Crack/Cocaine, Opiates and Other service: No Current occupational status: employed Current occupation: [employer] Sexual orientation: Straight/Heterosexual Cognitive needs: No Hearing needs: No Vision needs: No Questionnaire PHQ-9 Over the last 2 weeks, how often have you been bothered by any of the following problems? 1. Little interest or pleasure in doing things: nearly every day 2. Feeling down, depressed, or hopeless: more than half the days 3. Trouble falling or staying asleep, or sleeping too much: nearly every day 4. Feeling tired or having little energy: nearly every day 5. Poor appetite or overeating: nearly every day 6. Feeling bad about yourself - or that you are a failure or have let yourself or your family down: nearly every day 7. Trouble concentrating on things, such as reading the newspaper or watching television: nearly every day 8. Moving or speaking so slowly that other people could have noticed. Or the opposite - being so fidgety or restless that you have been moving around a lot more than usual: nearly every day 9. Thoughts that you would be better off or of hurting yourself in some way: more than half the days Total score: 25 Depression Screening Interpretation: Positive Depression Screening Follow-up: Existing condition and Community Mental Health Worker F/U Depression Screening Done: Yes 99570 - PHQ-9 Billing: Yes Source: Developed by Drs. Abel Velasquez, Dionisio Torres and colleagues, with an educational john from [employer]. Thrive Questionnaire Date Thrive assessed: 10/16/23 SANJUANA-7 AMB Questionnaire SANJUANA-7 Date SANJUANA - 7 assessed: 08/18/23 Feeling nervous, anxious, or on edge: 3 = Nearly every day Not being able to stop or control worryin = Nearly every day Worrying too much about different things: 3 = Nearly every day Trouble relaxin = Nearly every day Being so restless that it is hard to sit still: 2 = More than half the days Becoming easily annoyed or irritable: 2 = More than half the days Feeling afraid as if something awful might happen: 3 = Nearly every day Total SANJUANA-7 score (0-4 normal; 5-9 mild; 10-14 moderate; 15-21 severe): 19 Source: Developed by Drs. Abel Velasquez, Jennifer Rodríguez, Dionisio Driscoll and colleagues, with an educational john from [employer]. SANJUANA-7 Assessment Billing SANJUANA-7 Assessment Tool: SANJUANA-7 Assessment 46624 Review of Systems Const Denies headache(s) Eyes Denies loss of vision ENT Denies vertigo, Denies dizziness, Denies headache(s) and Denies sore throat Card Denies chest pain, Denies leg edema and Denies lightheadedness Resp Denies cough, Denies hemoptysis and Denies wheezing GI Denies abdominal pain, Denies melena, Denies constipation, Denies diarrhea and Denies vomiting Denies dysuria, Denies urinary frequency and Denies urinary urgency Musc Denies arthralgias, Denies joint swelling, Denies numbness and Denies tingling Neuro Denies Abnormal speech present, Denies behavioral changes, Denies vertigo, Denies dizziness, Denies headache(s), Denies loss of vision, Denies memory loss, Denies numbness and Denies tingling Psych Denies anxiety, Denies behavioral changes, Denies depression, Denies memory loss and Denies panic attacks Daniel/Lymph Denies easy bleeding and Denies easy bruising Aller/Immun Denies wheezing Physical exam (Primary Care) Vital Signs: Last Vital Signs Pulse 82 12/17/23 10:29 BP 118/68 12/17/23 10:29 Pulse Ox 95 12/17/23 10:29 Oxygen Delivery Method Room Air 12/17/23 10:29 BMI result Body Mass Index 31.2 Tobacco/Smoking Status: Tobacco use Status Tobacco use date assessed 08/18/23 12/17/23 10:30 Patient Tobacco Use Status Current everyday Tobacco 12/17/23 10:30 e-Cigarette/Vaping Use Currently Using 12/17/23 10:30 PHQ-9: PHQ-9 Score PHQ-9: Total score 25 12/17/23 10:56 Depression Screening Interpretation: Positive Depression Screening Follow-up: Existing condition and Community Mental Health Worker F/U Thrive Assessment: Date of Thrive Assessment Date Thrive assessed 10/16/23 12/17/23 10:30 Const General: healthy appearing, no acute distress, alert and awake Nutritional Appearance: well nourished Orientation/consciousness: oriented to person, oriented to place and oriented to time HENMT Ears: TM's normal bilaterally General nose exam: Normal nasal mucous membranes and turbinates present Eyes Conjunctivae: conjunctivae normal Sclerae: sclerae normal Pupils: Equal, round and reactive pupils present Neck Neck: Yes no lymphadenopathy and Yes no JVD Thyroid: Thyroid normal Carotids: no bruits Resp Effort & Inspection: normal respiratory effort and not tachypneic Auscultation: no crackles, no rales, no rhonchi and no wheezes Cardio Rate: regular rate Rhythm: regular rhythm Heart sounds: no murmurs and normal S1 and S2 GI Palpation (GI): Soft to palpation, nontender, no hepatomegaly and no splenomegaly Auscultation: normal bowel sounds Skin General skin exam: no rashes or lesions noted and dry skin Neuro General: oriented to person, oriented to place and oriented to time Cranial nerves: Yes Equal, round and reactive pupils present Speech: No Abnormal speech present Gait exam (Neuro): Normal gait present Motor exam (neuro): no tremor noted Extrem Right upper extremity: full ROM Left upper extremity: full ROM Right lower extremity: full ROM; no edema Left lower extremity: full ROM; no edema Psych Mental Status: mental status grossly normal Speech and movement: Normal speech and movement present Affect: normal affect Attitude: cooperative Thought process: Normal thought process present Assessment and Plan Assessment & Plan (1) Major depressive disorder: Code(s): F32.9 - Major depressive disorder, single episode, unspecified Qualifiers: Active/Remission status: currently active Major depression episode severity: moderate Major depression recurrence: recurrent Qualified Code(s): F33.1 - Major depressive disorder, recurrent, moderate Plan: Patient's PHQ-9 positive for major depressive disorder which has been existing condition for him. He is willing to try to set up with mental health therapy and hopefully a psychiatrist in near future. Has had issues maintaining a job and having financial issues because of this. Does have a found any record that he reports has been following him causing him not be able to keep a full-time job. (2) Alcohol use disorder: Code(s): F10.90 - Alcohol use, unspecified, uncomplicated Plan: Now in early remission, has had a few relapses over the last month due to worsening depression and stress/ anxiety Patient is now seeing [facility]. He does have Campral available to him in admits not taking this medication as he should.. Has been sober from alcohol a few weeks. (3) Opioid use disorder: Code(s): F11.90 - Opioid use, unspecified, uncomplicated Plan: Now in early remission, again has had a couple relapses recently. Continues to see comprehensive treatment center and on Suboxone (4) PTSD (post-traumatic stress disorder): Code(s): F43.10 - Post-traumatic stress disorder, unspecified Plan: Has PTSD due to his past, still trying to stand up with mental health therapy and a psychiatrist. Continues on trazodone Cymbalta and clonidine. (5) Hypertriglyceridemia: Code(s): E78.1 - Pure hyperglyceridemia Plan: Most recent lipid panel showing elevated triglycerides. Will recheck fasting lipids before next office visit. Orders: Orders Lipid Panel 12/17/23 E78.1 - Pure hyperglyceridemia [facility]. Panel Fast 12/17/23 E78.1 - Pure hyperglyceridemia Referrals Counseling Referral F33.1 - Major depressive disorder, recurrent, moderate Coding Level of Care Code Est Pt Level 4 (47262) Diagnoses Moderate episode of recurrent major depressive disorder F33.1 Active/Remission status: currently active Major depression episode severity: moderate Major depression recurrence: recurrent Alcohol use disorder F10.90 Opioid use disorder F11.90 PTSD (post-traumatic stress disorder) F43.10 Hypertriglyceridemia E78.1 Additional Codes SANJUANA-7 Assessment Billing - SANJUANA-7 Assessment Tool: SANJUANA-7 Assessment 88491 ([id number])
== END 2023-12-17 11:11 | disposition home or self-care (01) ==
PROVIDERS: PCP Physician Assistant; Visit Provider Physician Assistant
DX: F33.1 Major depressive disorder, recurrent, moderate (principal); F10.90 Alcohol use, unspecified, uncomplicated; F11.90 Opioid use, unspecified, uncomplicated; F43.10 Post-traumatic stress disorder, unspecified; E78.1 Pure hyperglyceridemia
CPT/HCPCS: 96127; 99214

== ENCOUNTER → 2023-12-17 11:27 | Outpatient (BNVA) | payer OTHER, SELFPAY | PROVIDERS: PCP Physician Assistant ==

== ENCOUNTER 2023-12-24 15:16 | Outpatient (AMB) | payer OTHER, SELFPAY ==
--- NOTE | 2023-12-24 15:18 | MHC.AM.SUB ---
Intake Visit Reasons: MAT Tele Allergies No Known Allergies [No Known Allergies*] Allergy (Verified 12/17/23 10:46) HPI HPI MAT Tele: Details: Patient presents for follow up via telehealth Currently prescribed Suboxone 12mg daily Tolerating current dose. Reporting constipation --colace is not effective Has not tried miralax yet Starts work on Friday --2nd shift [facility] Medical History Opioid use disorder PTSD (post-traumatic stress disorder) Alcohol use disorder Kidney stone SANJUANA (generalized anxiety disorder) Asthma Polysubstance abuse MDD (major depressive disorder), recurrent episode, moderate Surgical History H/O eye surgery Family History Mother No problems noted. Father DMII (diabetes mellitus, type 2) Brother No problems noted. Brother No problems noted. Brother No problems noted. Sister No problems noted. Sister No problems noted. Sister No problems noted. Son No problems noted. Son No problems noted. Social History Household Members: None Household Members Other:: Rico lives on his own Housing: Homeless Do you presently have visiting nurse or other home services: No Alcohol intake: former Year quit: 2019 Patient Tobacco Use Status: Current everyday Tobacco user Years Smoked: 4 e-Cigarette/Vaping Use: Currently Using Second Hand Smoke Exposure: Yes Substance Use Type: Crack/Cocaine, Opiates and Other service: No Current occupational status: employed Current occupation: [employer] Sexual orientation: Straight/Heterosexual Cognitive needs: No Hearing needs: No Vision needs: No Review of Systems Const Reports as per HPI Telehealth Telehealth Telehealth Platform: Telephone Location of provider rendering services: practice address Location of patient: address on file Patient Identification confirmed using: Name, : Yes Telehealth method: voice only Patient verbally consented to treatment: Yes Patient verbally consented to billing insurance company: Yes Minutes spent on Phone/Video with Pt.: 15 Assessment & Plan Assessment & Plan (1) Opioid use disorder: Code(s): F11.90 - Opioid use, unspecified, uncomplicated Category: Medical Plan: follow up 3 weeks in office no script needed at this time--30 day rx picked up on 12/16 Medications: New polyethylene glycol 3350 17 grams PO DAILY PRN 238 grams 0RF constipation
== END 2023-12-24 16:06 | disposition home or self-care (01) ==
PROVIDERS: PCP Physician Assistant; Visit Provider Nurse Practitioner Psychiatric/Mental Health
DX: F11.90 Opioid use, unspecified, uncomplicated (principal)
CPT/HCPCS: 99213

== ENCOUNTER → 2023-12-24 15:16 | Outpatient (BNVA) | payer OTHER, SELFPAY | PROVIDERS: PCP Physician Assistant; Visit Provider Nurse Practitioner Psychiatric/Mental Health ==

== ENCOUNTER → 2024-07-28 14:41 | Outpatient (BNVA) | payer OTHER, SELFPAY | PROVIDERS: PCP Physician Assistant; Visit Provider Physician Assistant | DX: Z00.00 Encounter for general adult medical examination without abnormal findings (principal); F43.10 Post-traumatic stress disorder, unspecified; E78.1 Pure hyperglyceridemia; F19.10 Other psychoactive substance abuse, uncomplicated; R31.0 Gross hematuria; F33.1 Major depressive disorder, recurrent, moderate; F41.1 Generalized anxiety disorder | CPT/HCPCS: 96127; 99395 ==

== ENCOUNTER 2024-09-25 04:52 | Emergency (ER) | payer OTHER, SELFPAY ==
--- NOTE | ~2024-09-25 | CT_ITS ---
CLINICAL HISTORY: Left flank pain x3 hours R O kidney stone CT abdomen and pelvis without contrast Comparison: 07/16/2023 05:21 PM EST: CTSR: CT ABDOMEN PELVIS WO IV CON (03:21 PM MST Findings: No consolidation or effusion. The gallbladder and solid organs are within normal limits. There are bilateral renal parenchymal calculi. There is moderate right hydroureteronephrosis secondary to 2 separate UV junction calculi, larger measuring 4 mm. No bowel obstruction, pneumoperitoneum, or pneumatosis. Pelvic contents unremarkable. Normal appendix. The bones are intact. IMPRESSION: Bilateral renal parenchymal calculi with moderate right hydroureteronephrosis secondary to 2 adjacent UV junction calculi. This document has been electronically signed by: Aidan Gotti MD on 09/25/2024 06:14:10
[2024-09-25 05:00] VITALS: BP 143/87; PULSE 114; RESP 20; TEMP 36.2; O2SAT 98; BMI 29.7
[2024-09-25 05:23] LABS: MANUAL DIFF FLAG NO
[2024-09-25 05:24] LABS: Basophils Absolute Auto 0.1 X10*3/uL (0.0-0.2); Basophils Percent Auto 0.4 % (0-2); Eosinophils Absolute Auto 0.1 X10*3/uL (0.0-0.4); Eosinophils Percent Auto 0.3 % (0-4); Hematocrit 40.3 % (42.0-52.0); Hemoglobin 14.6 g/dl (14.0-18.0); Imm Gran Abs Auto 0.05 X10*3/uL (0.00-0.03); Imm Gran Pct Auto 0.3 % (0.0-0.4); Lymphocytes Absolute Auto 3.2 X10*3/uL (1.2-4.9); Lymphocytes Percent Auto 22.1 % (20-40); Mean Corpuscular HGB Conc 36.2 g/dl (31.0-36.0); Mean Corpuscular Hemoglobin 33.5 pg (27.0-33.0); Mean Corpuscular Volume 92.4 fL (80.0-98.0); Mean Platelet Volume 8.2 fL (9.4-12.4); Monocytes Percent Auto 7.1 % (2-11); Neutrophils Absolute Auto 10.2 x10*3/uL (2.0-8.3); Neutrophils Percent Auto 69.8 % (45-73); Platelet Count 286 X10*3/uL (160-400); Red Blood Count 4.36 X10*6/uL (4.60-5.80); Red Cell Distribution Width 12.3 % (11.0-16.0); White Blood Count 14.6 X10*3/uL (4.8-10.8)
[2024-09-25] MEDS: Ketorolac Tromethamine 15 MG/ML VIAL IVPUSH (05:44)
[2024-09-25] MEDS: 0.9 % Sodium Chloride 1,000 ML 999 ML IV (05:45)
[2024-09-25 05:46] LABS: Alanine Aminotransferase 35 U/L (0-40); Albumin Level 4.4 g/dL (3.5-5.0); Alkaline Phosphatase 57 U/L (39-117); Anion Gap 17 (12-20); Aspartate Amino Transferase 45 U/L (5-37); Bilirubin Total 0.3 mg/dL (0.0-1.0); Blood Urea Nitrogen 11 mg/dL (9-16); Calcium 8.8 mg/dL (8.4-10.2); Carbon Dioxide 19 mmol/L (22-29); Chloride 108 mmol/L (96-108); Estimated Glomerular Filt Rate > 60; Glucose Random 77 mg/dL (60-115); Lipase 32 U/L (8-78); Potassium 3.8 mmol/L (3.3-5.1); Sodium 140 mmol/L (135-145); Total Protein 7.5 g/dL (6.5-8.0)
[2024-09-25] MEDS: Morphine Sulfate 4 MG/ML CARTRIDGE IVPUSH (06:39)
[2024-09-25 06:51] LABS: Appearance Urine Clear; Color Urine Yellow; Glucose Urine UA Negative (Negative); Leukocyte Esterase Urine Negative (Negative); Nitrite Urine Negative (Negative); Specific Gravity - Urine <= 1.005 (1.005-1.025); Urine Blood Negative (Negative); Urine Ketones Negative (Negative); Urine Protein Negative (Neg-Trace)
[2024-09-25 06:56] LABS: Bacteria Urine None Seen (None Seen); Hyaline Casts Urine 0-2 /LPF (0-2); RBC Urine 0-2 /HPF (0-2); Squamous Epithelial Cell Urine 0-2 /HPF (0-2); WBC Urine 0-5 /HPF (0-5)
--- NOTE | 2024-09-25 07:54 | ED_ITS ---
HPI - Male Genitourinary General Chief complaint: Urogenital-Male Stated complaint: Kidney stone? HX of [place] Time Seen by Provider: 09/25/24 07:50 Source: patient Mode of arrival: ambulatory Limitations: no limitations History of Present Illness ED Provider: HPI Narrative: Patient's history of recurrent stones noticed pain in the left flank area for last 3 hours prior to arrival radiating to the left lower abdomen with nausea no vomiting no hematuria no urinary symptoms Related Data Home Medications ?Medication ?Instructions ?Recorded ?Confirmed tamsulosin 0.4 mg capsule 0.4 mg PO BEDTIME 10/28/23 07/28/24 Previous Rx's ?Medication ?Instructions ?Recorded trazodone 50 mg tablet 50 mg PO BEDTIME PRN Insomnia 30 10/28/23 days #30 tabs B-complex with vitamin C 1 tab PO DAILY #90 tabs 11/05/23 ibuprofen 600 mg tablet 600 mg PO Q8H PRN pain #30 tabs 11/14/23 docusate sodium 100 mg capsule 100 mg PO BID #60 caps 12/01/23 polyethylene glycol 3350 17 17 g PO DAILY PRN constipation 12/24/23 gram/dose oral powder #238 grams clonidine HCl 0.1 mg tablet 0.1 mg PO BID PRN Anxiety 30 days 07/28/24 #90 tabs duloxetine 30 mg capsule,delayed 60 mg (2 x 30 mg) PO DAILY 30 days 07/28/24 release (Cymbalta) #60 caps hydroxyzine HCl 25 mg tablet 25 mg PO Q6H PRN Anxiety 30 days 07/28/24 #60 tabs melatonin 5 mg tablet 5 mg PO BEDTIME PRN Insomnia 90 07/28/24 days #90 tabs pyridoxine (vitamin B6) 50 mg 50 mg PO DAILY 30 days #30 tabs 07/28/24 tablet oxycodone 5 mg tablet 5 mg PO Q6H PRN pain #20 tabs 09/25/24 tamsulosin 0.4 mg capsule (Flomax) 0.4 mg PO BEDTIME #10 caps 09/25/24 Allergies Allergy/AdvReac Type Severity Reaction Status Date / Time No Known Allergies Allergy Verified 09/25/24 05:01 [No Known Allergies*] Review of Systems 2 Review of Systems: Yes all other systems are reviewed and are negative PMFSH Past Medical History Medical History Opioid use disorder PTSD (post-traumatic stress disorder) Alcohol use disorder Kidney stone SANJUANA (generalized anxiety disorder) Asthma Polysubstance abuse MDD (major depressive disorder), recurrent episode, moderate Surgical History H/O eye surgery Family History Family History Mother No problems noted. Father DMII (diabetes mellitus, type 2) Brother No problems noted. Brother Heart attack Brother No problems noted. Sister No problems noted. Sister No problems noted. Sister No problems noted. Son No problems noted. Son No problems noted. Social History Social History Household Members: None Household Members Other:: Rico lives on his own Housing: Homeless Do you presently have visiting nurse or other home services: No Alcohol intake: current Alcohol intake frequency: a few times a month Patient Tobacco Use Status: Current everyday Tobacco user Tobacco use type: Smokeless Tobacco e-Cigarette/Vaping Use: Currently Using Second Hand Smoke Exposure: Yes Substance Use Type: Crack/Cocaine, Opiates and Other service: No Current occupational status: employed Current occupation: [employer] Sexual orientation: Straight/Heterosexual Cognitive needs: No Hearing needs: No Vision needs: No Physical Exam 2 Vital Signs: Vital Signs: Last Vital Signs Temp 98.0 F 09/25/24 12:42 Pulse 90 09/25/24 12:42 Resp 18 09/25/24 12:42 BP 123/71 09/25/24 12:42 Pulse Ox 96 09/25/24 12:42 O2 Del Method Room Air 09/25/24 12:42 BMI result Body Mass Index 29.7 Appearance: Alert. Oriented X3. No acute distress. Eyes: No pallor or icterus ENT: Pharynx normal. Oral Mucosa moist Neck: Normal inspection. Neck supple. CVS: Normal heart rate and rhythm. Pulses normal. Respiratory: No respiratory distress. Equal air entry bilateral, no wheezing/rales/rhonchi Abdomen: Soft and nontender. Bowel sounds are present, no mass palpable, left CVA tenderness++ Skin: Skin warm and dry. Normal skin color. Normal skin turgor. Extremities: No lower extremity edema. No calf tenderness Neuro: Oriented X 3. No motor deficit. Medications Administered Discontinued Medications Generic Name Dose Route Start Last Admin Trade Name Minda PRN Reason Stop Dose Admin Hydromorphone HCl 2 mg 09/25/24 08:19 09/25/24 08:33 Hydromorphone Hcl 2 Mg/Ml Vial IVPUSH 09/25/24 08:20 2 mg ONCE ONE Administration Protocol Sodium Chloride 1,000 mls @ 999 mls/hr 09/25/24 05:33 09/25/24 07:42 Ns IV 09/25/24 06:33 Infused .Q1H1M STA Infusion Ketorolac Tromethamine 15 mg 09/25/24 05:33 09/25/24 05:44 Ketorolac Tromethamine 15 Mg/Ml Vial IVPUSH 09/25/24 05:34 15 mg ONCE STA Administration Morphine Sulfate 4 mg 09/25/24 06:32 09/25/24 06:39 Morphine Sulfate 4 Mg/Ml Cartridge IVPUSH 09/25/24 06:33 4 mg ONCE ONE Administration Protocol Ondansetron HCl 4 mg 09/25/24 08:19 09/25/24 08:33 Ondansetron Hcl 4 Mg/2 Ml Vial IVPUSH 09/25/24 08:20 4 mg ONCE ONE Administration Tamsulosin HCl 0.4 mg 09/25/24 08:19 09/25/24 08:33 Tamsulosin Hcl 0.4 Mg Capsule PO 09/25/24 08:20 0.4 mg ONCE ONE Administration Medical Decision Making Medical Decision Making [facility] Narrative: Patient does have a left flank pain but CT scan showed right ureteric stone hydronephrosis possible that patient is already passed the stone in the left side patient has received IV pain medication and fluids feeling much better will discharge patient home advised to follow with urologist Lab Data [facility] Lab Attestation statement: I reviewed the patient's lab results. 09/25/24 05:16 09/25/24 05:16 Labs: Lab Results 09/25/24 09/25/24 Range/Units 05:16 06:44 WBC 14.6 H (4.8-10.8) X10*3/uL RBC 4.36 L (4.60-5.80) X10*6/uL Hgb 14.6 (14.0-18.0) g/dl Hct 40.3 L (42.0-52.0) % MCV 92.4 (80.0-98.0) fL MCH 33.5 H (27.0-33.0) pg MCHC 36.2 H (31.0-36.0) g/dl RDW 12.3 (11.0-16.0) % Plt Count 286 (160-400) X10*3/uL MPV 8.2 L (9.4-12.4) fL Immature Gran % (Auto) 0.3 (0.0-0.4) % Neut % (Auto) 69.8 (45-73) % Lymph % (Auto) 22.1 (20-40) % [place] % (Auto) 7.1 (2-11) % Eos % (Auto) 0.3 (0-4) % Baso % (Auto) 0.4 (0-2) % Lymph # (Auto) 3.2 (1.2-4.9) X10*3/uL [place] # (Auto) 1.0 (0.1-1.2) X10*3/uL Eos # (Auto) 0.1 (0.0-0.4) X10*3/uL Baso # (Auto) 0.1 (0.0-0.2) X10*3/uL Abs Immat Gran (auto) 0.05 H (0.00-0.03) X10*3/uL Absolute Neuts (auto) 10.2 H (2.0-8.3) x10*3/uL Absolute Nucleated RBC 0.000 (0.0-0.012) X10*3/uL Nucleated RBC % (auto) 0.0 (0.0-0.2) /100WBC Sodium 140 (135-145) mmol/L Potassium 3.8 (3.3-5.1) mmol/L Chloride 108 (96-108) mmol/L Carbon Dioxide 19 L (22-29) mmol/L Anion Gap 17 (12-20) BUN 11 (9-16) mg/dL Creatinine 0.91 (0.5-1.4) mg/dL Estim Creat Clear Calc 124.0 Estimated GFR > 60 Random Glucose 77 (60-115) mg/dL Calcium 8.8 (8.4-10.2) mg/dL Total Bilirubin 0.3 (0.0-1.0) mg/dL AST 45 H (5-37) U/L ALT 35 (0-40) U/L Alkaline Phosphatase 57 (39-117) U/L Total Protein 7.5 (6.5-8.0) g/dL Albumin 4.4 (3.5-5.0) g/dL Lipase 32 (8-78) U/L Urine Color Yellow Urine Appearance Clear Urine pH 6.0 (5.0-9.0) Ur Specific [place] <= 1.005 (1.005-1.025) Urine Protein Negative (Neg-Trace) mg/dL Urine Glucose (UA) Negative (Negative) mg/dL Urine Ketones Negative (Negative) mg/dL Urine Blood Negative (Negative) Urine Nitrite Negative (Negative) Ur Leukocyte Esterase Negative (Negative) Urine RBC 0-2 (0-2) /HPF Urine WBC 0-5 (0-5) /HPF Ur Squamous Epith Cells 0-2 (0-2) /HPF Urine Bacteria None Seen (None Seen) Hyaline Casts 0-2 (0-2) /LPF Radiology Impression Discussion of test interpretation with radiology: I have reviewed the radiologist's reading. Radiologist Impression: Findings: No consolidation or effusion. The gallbladder and solid organs are within normal limits. There are bilateral renal parenchymal calculi. There is moderate right hydroureteronephrosis secondary to 2 separate UV junction calculi, larger measuring 4 mm. No bowel obstruction, pneumoperitoneum, or pneumatosis. Pelvic contents unremarkable. Normal appendix. The bones are intact. IMPRESSION: Bilateral renal parenchymal calculi with moderate right hydroureteronephrosis secondary to 2 adjacent UV junction calculi. This document has been electronically signed by: Aidan Gotti MD on 09/25/2024 06:14:10 Discharge Plan Discharge Clinical Impression: Kidney stone Patient Disposition: Home, Self-Care Instructions: Kidney Stones (ED), Low Oxalate Diet (ED) Additional Instructions: Drink plenty of fluids Take pain medication as prescribed Flomax daily till you pass the stone Follow up with urologist Decrease the food containing oxalate Prescriptions: New oxycodone 5 mg tablet 5 mg PO Q6H PRN (Reason: pain) Qty: 20 0RF Rx Instructions: Partial Fill upon patient request. tamsulosin [Flomax] 0.4 mg capsule 0.4 mg PO BEDTIME Qty: 10 0RF No Action docusate sodium 100 mg capsule 100 mg PO BID Qty: 60 0RF tamsulosin 0.4 mg capsule 0.4 mg PO BEDTIME trazodone 50 mg tablet 50 mg PO BEDTIME PRN (Reason: Insomnia) 30 Days Qty: 30 3RF B-complex with vitamin C Tablet 1 tab PO DAILY Qty: 90 0RF clonidine HCl 0.1 mg tablet 0.1 mg PO BID PRN (Reason: Anxiety) 30 Days Qty: 90 3RF hydroxyzine HCl 25 mg tablet 25 mg PO Q6H PRN (Reason: Anxiety) 30 Days Qty: 60 1RF melatonin 5 mg tablet 5 mg PO BEDTIME PRN (Reason: Insomnia) 90 Days Qty: 90 3RF pyridoxine (vitamin B6) 50 mg tablet 50 mg PO DAILY 30 Days Qty: 30 3RF duloxetine [Cymbalta] 30 mg capsule,delayed release(DR/EC) 60 mg PO DAILY 30 Days Qty: 60 3RF ibuprofen 600 mg tablet 600 mg PO Q8H PRN (Reason: pain) Qty: 30 0RF polyethylene glycol 3350 17 gram/dose powder 17 g PO DAILY PRN (Reason: constipation) Qty: 238 0RF Referrals: Meño Grissom MD [Physician] - 2 weeks Interventions: ED Discharge Assessment Last Done: 09/25/24 12:42 Discharge Date/Time: 09/25/24 12:43 Print Language: [place]
[2024-09-25] MEDS: ondansetron HCL 4 MG/2 ML VIAL IVPUSH (08:33)
[2024-09-25] MEDS: HYDROmorphone HCl 2 MG/ML VIAL IVPUSH (08:33)
[2024-09-25] MEDS: Tamsulosin HCL 0.4 MG CAPSULE PO (08:33)
[2024-09-25 08:36] VITALS: BP 122/71; PULSE 91; RESP 18; TEMP 36.4; O2SAT 96
--- NOTE | 2024-09-25 08:45 | PC.NURSE ---
pt verbalizing increase in left flank pain despite previous medication administrations. pt remedicated per provider order. effectiveness pending. pt otherwise vss and up to date. remains on RA w/o difficulty. no sob/wob noted. respirations even/unlabored. plan of care ongoing. call palencia placed within reach.
[2024-09-25 12:41] VITALS: BP 123/71; PULSE 90; RESP 18; TEMP 36.7; O2SAT 96
[2024-09-25 12:42] VITALS: BP 123/71; PULSE 90; RESP 18; TEMP 36.7; O2SAT 96
== END 2024-09-25 12:43 | disposition home or self-care (01) ==
PROVIDERS: Emergency Provider Internal Medicine; PCP Physician Assistant
DX: N20.0 Calculus of kidney (principal); R10.32 Left lower quadrant pain; R11.0 Nausea; F17.210 Nicotine dependence, cigarettes, uncomplicated; F14.90 Cocaine use, unspecified, uncomplicated; Z79.899 Other long term (current) drug therapy
CPT/HCPCS: 36415; 74176; 80053; 81001; 83690; 85025; 96361; 96374; 96375; 99284; 99285; J1171; J1885; J2270; J2405

== ENCOUNTER → 2024-09-25 05:33 | Outpatient (BNV) | payer OTHER, SELFPAY | PROVIDERS: PCP Physician Assistant; Visit Provider Specialist | DX: N13.2 Hydronephrosis with renal and ureteral calculous obstruction (principal) | CPT/HCPCS: 74176 ==

== ENCOUNTER 2024-12-18 16:18 | Emergency (ER) | payer OTHER, SELFPAY ==
--- NOTE | ~2024-12-18 | CT_ITS ---
CLINICAL HISTORY: left sided back swelling - pain CT chest without contrast Comparison: CT/SR - CT ABDOMEN PELVIS WO IV CON - 09/25/24 05:51 EDT Findings: Lungs are clear. Overall heart size within normal limits. Thoracic aorta is of normal caliber. No enlarged lymph nodes. No pleural effusion or pneumothorax. Upper abdominal images demonstrate a 1 mm nonobstructing left renal calculus. There is also a 1 mm nonobstructing calculus within the interpolar region of the right kidney. No acute fracture. Mild convex left upper thoracic curvature with moderate convex right midthoracic curvature and moderate convex left thoracolumbar curvature. IMPRESSION: 1. No acute findings. 2. S curvature scoliosis. 3. Tiny nonobstructing bilateral renal calculi. This document has been electronically signed by: Maximiliano Park MD on 12/18/2024 21:32:42
[2024-12-18 16:44] VITALS: BP 136/88; PULSE 85; RESP 16; TEMP 36.6; O2SAT 96; BMI 29.5
--- NOTE | 2024-12-18 16:47 | ED_ITS ---
HPI - General Adult General Chief complaint: Back Pain/Injury Stated complaint: upper back pain Time Seen by Provider: 12/18/24 18:17 Source: patient Mode of arrival: ambulatory Limitations: no limitations History of Present Illness ED Provider: Sindy Hernandez PA-C HPI narrative: Patient is a 39 year old assigned male at with a history of SANJUANA, MDD, LDDD, kidney stones, polysubstance abuse, and alcohol use disorder presenting to the emergency department today with right sided back swelling. Patient states that he recently noticed that the right side of his back is swollen. Patient states he noticed it in the mirror and isn't sure if it's new or not but it doesn't hurt. Patient denies any dizziness, lightheadedness, abdominal pain, nausea, vomiting, fever, chills, blurry vision, double vision, loss of vision, chest pain, difficulty breathing, shortness of breath, back pain, night sweats, pain with urination, increased urinary frequency, increased urinary urgency, blood in his urine or stool, syncope or a near syncopal episode, recent trauma or falls, bowel incontinence, bladder incontinence, or any other complaints at this time. Onset (ago): day(s) Location: back Relieving factors: none Exacerbating factors: none Associated symptoms: denies other symptoms Treatments prior to arrival: none Related Data Home Medications ?Medication ?Instructions ?Recorded ?Confirmed tamsulosin 0.4 mg capsule 0.4 mg PO BEDTIME 10/28/23 0 07/28/24 Previous Rx's ?Medication ?Instructions ?Recorded trazodone 50 mg tablet 50 mg PO BEDTIME PRN Insomni a 30 10/28/23 days #30 tabs B-complex with vitamin C 1 tab PO DAILY #90 tabs 05/0 02/20 ibuprofen 600 mg tablet 600 mg PO Q8H PRN pain #30 t abs 11/14/23 docusate sodium 100 mg capsule 100 mg PO BID #60 caps 12/01/23 polyethylene glycol 3350 17 17 g PO DAILY PRN constipa tion 12/24/23 gram/dose oral powder #238 grams clonidine HCl 0.1 mg tablet 0.1 mg PO BID PRN Anxiety 30 days 07/28/24 #90 tabs duloxetine 30 mg capsule,delayed 60 mg (2 x 30 mg) PO DAILY 30 days 07/28/24 release (Cymbalta) #60 caps hydroxyzine HCl 25 mg tablet 25 mg PO Q6H PRN Anxiety 30 days 07/28/24 #60 tabs melatonin 5 mg tablet 5 mg PO BEDTIME PRN Insomnia 90 07/28/24 days #90 tabs oxycodone 5 mg tablet 5 mg PO Q6H PRN pain #20 tab s 09/25/24 tamsulosin 0.4 mg capsule (Flomax) 0.4 mg PO BEDTIME # 10 caps 09/25/24 pyridoxine (vitamin B6) 50 mg 50 mg PO DAILY #90 tabs 11/26/24 tablet Allergies Allergy/AdvReac Type Severity Reaction Status Date / Time No Known Allergies (No Known Allergy Verified 12/18/24 16:46 Allergies*) Review of Systems 2 Constitutional: Constitutional: Reports no additional constitutional complaints, Denies chills, Denies fever(s) and Denies night sweats Eyes: Eyes: Reports no additional eye complaints, Denies blurry vision, Denies change in vision, Denies diplopia, Denies eye discharge, Denies loss of vision and Denies eye pain ENT: Denies dizziness Cardiovascular: Cardiovascular: Reports no additional cardiovascular complaints, Denies chest pain, Denies lightheadedness, Denies Loss of Consciousness and Denies dyspnea Respiratory: Respiratory: Reports no additional respiratory complaints and Denies dyspnea Gastrointestinal: Gastrointestinal: Reports no additional gastrointestinal complaints, Denies abdominal pain, Denies melena, Denies hematochezia, Denies change in bowel habits and Denies change in stool character Genitourinary: Genitourinary: Reports no additional male genitourinary complaints, Denies hematuria, Denies oliguria, Denies difficulty urinating, Denies dysuria, Denies urinary frequency, Denies urinary hesitancy, Denies urinary incontinence and Denies urinary urgency Musculoskeletal: Musculoskeletal: Reports no additional musculoskeletal complaints, Denies numbness and Denies tingling Comments: right sided back swelling Neurologic: Denies dizziness, Denies loss of vision, Denies numbness and Denies tingling Psychiatric: Psychiatric: Reports no additional psychiatric complaints Endocrine: Endocrine: Reports no additional endocrine complaints Hematologic/Lymphatic: Hematologic/Lymphatic: Reports no additional hematologic/lymphatic complaints Allergic/Immunologic: Allergic/Immunologic: Reports no additional allergic/immunologic complaints PMFSH Past Medical History Attestation statement: The following information was validated with the patient. Source: old records reviewed and nursing notes reviewed Medical History Opioid use disorder PTSD (post-traumatic stress disorder) Alcohol use disorder Kidney stone SANJUANA (generalized anxiety disorder) Asthma Polysubstance abuse MDD (major depressive disorder), recurrent episode, moderate Surgical History H/O eye surgery Family History Family History Mother No problems noted. Father DMII (diabetes mellitus, type 2) Brother No problems noted. Brother Heart attack Brother No problems noted. Sister No problems noted. Sister No problems noted. Sister No problems noted. Son No problems noted. Son No problems noted. Social History Social History Household Members: None Household Members Other:: Rico lives on his own Housing: Homeless Do you presently have visiting nurse or other home services: No Alcohol intake: current Alcohol intake frequency: a few times a month Alcohol type: beer and hard liquor Patient Tobacco Use Status: Current everyday Tobacco user Tobacco use type: Smokeless Tobacco Smoked in Last 30 Days: Yes e-Cigarette/Vaping Use: Currently Using Second Hand Smoke Exposure: Yes Use of substances other than those prescribed or required for medical reasons: Yes Substance Use Type: Painkillers Substance Use Frequency: Daily Last Used Substance: Days (ago) Advance Directives: No Advance Directives Information Provided: Yes Do you have a plan to hurt others: No Plan service: No Current occupational status: employed Current occupation: [employer] Sexual orientation: Straight/Heterosexual Cognitive needs: No Hearing needs: No Vision needs: No Physical Exam ED Vital Signs: Vital Signs - 24 hr 12/18/24 16:44 12/18/24 17:53 12/18/24 19:52 Temperature 97.9 F 97.4 F 97.8 F Pulse Rate 85 80 80 Respiratory Rate 16 14 18 Blood Pressure 136/88 139/93 H 134/88 Pulse Oximetry 96 96 98 Oxygen Delivery Method Room Air Room Air Room Air 12/18/24 20:46 12/18/24 20:55 Temperature 97.7 F 97.7 F Pulse Rate 78 78 Respiratory Rate 20 20 Blood Pressure 140/81 H 140/81 H Pulse Oximetry 98 98 Oxygen Delivery Method Room Air Room Air BMI result Body Mass Index 29.5 Const General: cooperative, no acute distress, alert and awake Nutritional Appearance: well nourished Orientation/consciousness: patient oriented x3 HENMT Head: Yes normal to inspection and Yes atraumatic Ears: hearing grossly normal bilaterally and external ears normal General nose exam: Normal external nose present, no nasal discharge noted and no epistaxis Face and sinus: Yes normal facial exam, No abrasion and No laceration Mouth: Normal oral and palatal mucosa present, no drooling and no muffled voice Eyes General: appearance normal, both eyes and all related structures Periorbital: periorbital findings normal Eyelids: Yes eyelids normal Conjunctivae: conjunctivae normal Pupils: Equal, round and reactive pupils present EOM: EOMs intact bilaterally Neck Neck: Yes normal visual inspection, Yes full ROM and Yes no lymphadenopathy Resp Effort & Inspection: normal respiratory effort and able to speak in complete sentences Back/Spine/Pelvis Other: protrusion of the right posterior rib cage - uniform down the entire protrusion, no skin changes, no pain with palpation Neuro General: patient oriented x3, moves all extremities and CN's II-XI intact bilaterally Cranial nerves: Yes Equal, round and reactive pupils present Cognition (Neuro): normal cognition Extrem General: Yes normal to inspection, Yes full ROM and Yes capillary refill normal Psych Appearance: grossly normal Mental Status: mental status grossly normal Affect: normal affect Attitude: cooperative Thought process: Normal thought process present Thought content: Normal thought content present Insight: Good insight present (Psych) Course Course Course Narrative: This is an RME: Additional HPI, ROS, PE not included below will be deferred to primary provider. RME assessment and note performed by: Pratima Barry PA-C This is [id number]-male who presents to the ER with a complaint of swelling noted to his right upper back, noticed in the mirror several days ago. Reporting some achiness/soreness to his back. Does admit to having night sweats, no profound weight loss. Pt anxious - requesting lung test because I vape . No fevers, chills, chest pain, SOB. Plan: basic labs Medical Decision Making Medical Decision Making MDM Narrative: Patient is a 39 year old assigned male at with a history of SANJUANA, MDD, LDDD, kidney stones, polysubstance abuse, and alcohol use disorder presenting to the emergency department today with right sided back swelling. Patient's physical exam was as noted in the physical exam portion of this note. Patient's blood work was unremarkable. Patient's CT chest showed no acute process but did show s-curved scoliosis which the patient states he did not previously know about. I explained my physical exam findings as well as all test results to the patient. I answered all questions asked by the patient. I stressed the importance of the patient taking his medication as directed (either prescribed or as the over the counter packaging recommends). I stressed the importance of the patient following up with his primary care provider and a source water protection specialist. I explained there is likely nothing to do about this now given his age however, he should follow up with the specialist team for confirmation. I stressed the importance of the patient returning to the emergency department immediately if his symptoms were to worsen or if he were to develop any dizziness, shortness of breath, difficulty breathing, chest pain, blurry vision, loss of vision, nausea, vomiting, abdominal pain, fever, chills, back pain, or any other complaints. Patient verbalized agreement and understanding with this treatment plan and discharge. Differential Diagnosis Differential Diagnoses: The differential diagnosis associated with the presentation includes Scoliosis Right sided back swelling Muscle spasm Admission/Observation Consideration of admission/observation: Escalation of care including admission/observation considered Patient would have been admitted to the hospital had his work up had any findings where hospital admission was appropriate and his clinical presentation warranted hospital admission. Lab Data [facility] Lab Attestation statement: I reviewed the patient's lab results. My interpretation of these results are in the [facility] Rationale portion of this note. 12/18/24 16:58 12/18/24 16:58 Labs: Lab Results 12/18/24 Range/Units 16:58 WBC 8.6 (4.8-10.8) X10*3/uL RBC 4.48 L (4.60-5.80) X10*6/uL Hgb 15.0 (14.0-18.0) g/dl Hct 41.7 L (42.0-52.0) % MCV 93.1 (80.0-98.0) fL MCH 33.5 H (27.0-33.0) pg MCHC 36.0 (31.0-36.0) g/dl RDW 11.1 (11.0-16.0) % Plt Count 246 (160-400) X10*3/uL MPV 8.2 L (9.4-12.4) fL Immature Gran % (Auto) 0.2 (0.0-0.4) % Neut % (Auto) 45.8 (45-73) % Lymph % (Auto) 40.6 H (20-40) % [place] % (Auto) 9.1 (2-11) % Eos % (Auto) 3.7 (0-4) % Baso % (Auto) 0.6 (0-2) % Lymph # (Auto) 3.5 (1.2-4.9) X10*3/uL [place] # (Auto) 0.8 (0.1-1.2) X10*3/uL Eos # (Auto) 0.3 (0.0-0.4) X10*3/uL Baso # (Auto) 0.1 (0.0-0.2) X10*3/uL Abs Immat Gran (auto) 0.02 (0.00-0.03) X10*3/uL Absolute Neuts (auto) 3.9 (2.0-8.3) x10*3/uL Absolute Nucleated RBC 0.000 (0.0-0.012) X10*3/uL Nucleated RBC % (auto) 0.0 (0.0-0.2) /100WBC Sodium 141 (135-145) mmol/L Potassium 3.7 (3.3-5.1) mmol/L Chloride 105 (96-108) mmol/L Carbon Dioxide 25 (22-29) mmol/L Anion Gap 15 (12-20) BUN 13 (9-16) mg/dL Creatinine 0.91 (0.5-1.4) mg/dL Estim Creat Clear Calc 123.7 Estimated GFR > 60 Random Glucose 88 (60-115) mg/dL Calcium 9.2 (8.4-10.2) mg/dL Total Bilirubin 0.3 (0.0-1.0) mg/dL AST 32 (5-37) U/L ALT 36 (0-40) U/L Alkaline Phosphatase 65 (39-117) U/L Total Protein 7.4 (6.5-8.0) g/dL Albumin 4.4 (3.5-5.0) g/dL Independent Interpretation I performed an independent interpretation of an: CT Scan Interpretation: My interpretation is in agreement with the radiologist's impression of this imaging study. L Report Number: [id number]: Total DLP = 371.00 mGy-cm CLINICAL HISTORY: left sided back swelling - pain CT chest without contrast Comparison: CT/SR - CT ABDOMEN PELVIS WO IV CON - 09/25/24 05:51 EDT Findings: Lungs are clear. Overall heart size within normal limits. Thoracic aorta is of normal caliber. No enlarged lymph nodes. No pleural effusion or pneumothorax. Upper abdominal images demonstrate a 1 mm nonobstructing left renal calculus. There is also a 1 mm nonobstructing calculus within the interpolar region of the right kidney. No acute fracture. Mild convex left upper thoracic curvature with moderate convex right midthoracic curvature and moderate convex left thoracolumbar curvature. IMPRESSION: 1. No acute findings. 2. S curvature scoliosis. 3. Tiny nonobstructing bilateral renal calculi. This document has been electronically signed by: Maximiliano Park MD on 12/18/2024 21:32:42 Dictated By: Maximiliano Park MD Signed By: Electronically signed by Maximiliano Park MD 12/18/24 [id number] Radiology Impression Discussion of test interpretation with radiology: I have reviewed the radiologist's reading. Discharge Plan Discharge Clinical Impression: Curvature of spine Patient Disposition: Home, Self-Care Instructions: Back Pain (ED) Additional Instructions: Follow up with your primary care provider and a source water protection specialist. Return to the emergency department immediately if your symptoms worsen or if you develop any numbness, tingling, dizziness, shortness of breath, difficulty breathing, chest pain, blurry vision, loss of vision, nausea, vomiting, abdominal pain, fever, chills, back pain, or any other complaints. Please see the information below about our Patient Portal. If you are not yet enrolled in the [facility] Patient Portal, you will receive an enrollment email invitation following your visit to any [facility] [place] setting. You may also self-enroll in the Patient Portal by visiting our website: [email or web address] The following information is required to access the Patient Portal: - Your [facility] [place] - Your personal home email address (must match what is in your electronic medical record, Registration staff can assist with this) - Name - Date of Capabilities of the Patient Portal: - Message some providers - View upcoming appointments - Access your health summary, medical history, and visit history - View current conditions and allergies - View procedure and lab results - View your medications, including guidelines, side effects, and precautions - Complete pre-appointment questionnaires requested by your provider - Ready summary reports of your office visits and procedures To access the Patient Portal Mobile [employer], follow these directions: - Search [employer] in the [employer] Store or [employer] Store - Download the [employer] - Search for [facility] - Enter your login/password Prescriptions: No Action docusate sodium 100 mg capsule 100 mg PO BID Qty: 60 0RF pyridoxine (vitamin B6) 50 mg tablet 50 mg PO DAILY Qty: 90 1RF oxycodone 5 mg tablet 5 mg PO Q6H PRN (Reason: pain) Qty: 20 0RF Rx Instructions: Partial Fill upon patient request. tamsulosin [Flomax] 0.4 mg capsule 0.4 mg PO BEDTIME Qty: 10 0RF tamsulosin 0.4 mg capsule 0.4 mg PO BEDTIME trazodone 50 mg tablet 50 mg PO BEDTIME PRN (Reason: Insomnia) 30 Days Qty: 30 3RF B-complex with vitamin C Tablet 1 tab PO DAILY Qty: 90 0RF clonidine HCl 0.1 mg tablet 0.1 mg PO BID PRN (Reason: Anxiety) 30 Days Qty: 90 3RF hydroxyzine HCl 25 mg tablet 25 mg PO Q6H PRN (Reason: Anxiety) 30 Days Qty: 60 1RF melatonin 5 mg tablet 5 mg PO BEDTIME PRN (Reason: Insomnia) 90 Days Qty: 90 3RF duloxetine [Cymbalta] 30 mg capsule,delayed release(DR/EC) 60 mg PO DAILY 30 Days Qty: 60 3RF ibuprofen 600 mg tablet 600 mg PO Q8H PRN (Reason: pain) Qty: 30 0RF polyethylene glycol 3350 17 gram/dose powder 17 g PO DAILY PRN (Reason: constipation) Qty: 238 0RF Referrals: [facility] [Provider Group, Neurosurgery] Referral Note: Call to establish and follow up with a source water protection specialist. Carlos Hernandez PA-C [Primary Care Provider, Internal Medicine] Interventions: ED Discharge Assessment Last Done: 12/18/24 20:55 Discharge Date/Time: 12/18/24 20:58 Print Language: German
[2024-12-18 17:04] LABS: MANUAL DIFF FLAG NO
[2024-12-18 17:05] LABS: Basophils Absolute Auto 0.1 X10*3/uL (0.0-0.2); Basophils Percent Auto 0.6 % (0-2); Eosinophils Absolute Auto 0.3 X10*3/uL (0.0-0.4); Eosinophils Percent Auto 3.7 % (0-4); Hematocrit 41.7 % (42.0-52.0); Imm Gran Abs Auto 0.02 X10*3/uL (0.00-0.03); Imm Gran Pct Auto 0.2 % (0.0-0.4); Lymphocytes Absolute Auto 3.5 X10*3/uL (1.2-4.9); Lymphocytes Percent Auto 40.6 % (20-40); Mean Corpuscular Hemoglobin 33.5 pg (27.0-33.0); Mean Corpuscular Volume 93.1 fL (80.0-98.0); Mean Platelet Volume 8.2 fL (9.4-12.4); Monocytes Absolute Auto 0.8 X10*3/uL (0.1-1.2); Monocytes Percent Auto 9.1 % (2-11); Neutrophils Absolute Auto 3.9 x10*3/uL (2.0-8.3); Neutrophils Percent Auto 45.8 % (45-73); Platelet Count 246 X10*3/uL (160-400); Red Blood Count 4.48 X10*6/uL (4.60-5.80); Red Cell Distribution Width 11.1 % (11.0-16.0); White Blood Count 8.6 X10*3/uL (4.8-10.8)
[2024-12-18 17:18] LABS: Alanine Aminotransferase 36 U/L (0-40); Albumin Level 4.4 g/dL (3.5-5.0); Alkaline Phosphatase 65 U/L (39-117); Anion Gap 15 (12-20); Aspartate Amino Transferase 32 U/L (5-37); Bilirubin Total 0.3 mg/dL (0.0-1.0); Blood Urea Nitrogen 13 mg/dL (9-16); Calcium 9.2 mg/dL (8.4-10.2); Carbon Dioxide 25 mmol/L (22-29); Chloride 105 mmol/L (96-108); Creatinine Clr Calc Pharmacy 123.7; Estimated Glomerular Filt Rate > 60; Glucose Random 88 mg/dL (60-115); Potassium 3.7 mmol/L (3.3-5.1); Sodium 141 mmol/L (135-145); Total Protein 7.4 g/dL (6.5-8.0)
[2024-12-18 17:53] VITALS: BP 139/93; PULSE 80; RESP 14; TEMP 36.3; O2SAT 96
--- NOTE | 2024-12-18 17:58 | PC.NURSE ---
Patient presents to ED c/o lower right back pain radiates to right leg. Pain rated 8/10, patient stated It started a couple days ago . Denies injury, SOB/WOB. VSS and up to date.
[2024-12-18 19:52] VITALS: BP 134/88; PULSE 80; RESP 18; TEMP 36.6; O2SAT 98
[2024-12-18 20:46] VITALS: BP 140/81; PULSE 78; RESP 20; TEMP 36.5; O2SAT 98
[2024-12-18 20:55] VITALS: BP 140/81; PULSE 78; RESP 20; TEMP 36.5; O2SAT 98
== END 2024-12-18 20:58 | disposition home or self-care (01) ==
PROVIDERS: Physician Assistant Medical; Emergency Provider Emergency Medicine Emergency Medical Services; PCP Physician Assistant
DX: M41.85 Other forms of scoliosis, thoracolumbar region (principal)
CPT/HCPCS: 36415; 71250; 80053; 85025; 99284

== ENCOUNTER → 2024-12-18 19:12 | Outpatient (BNV) | payer OTHER, SELFPAY | PROVIDERS: Emergency Provider Emergency Medicine Emergency Medical Services; PCP Physician Assistant; Visit Provider Radiology Diagnostic Radiology | DX: M41.9 Scoliosis, unspecified (principal); N20.0 Calculus of kidney | CPT/HCPCS: 71250 ==

== ENCOUNTER 2025-01-28 09:47 | Outpatient (REF) | payer OTHER, SELFPAY ==
--- NOTE | ~2025-01-28 | XR_ITS ---
EXAMINATION: XR SACROILIAC JOINTS CLINICAL INFORMATION: S39.012A - Strain of muscle, fascia and tendon of lower back, initial en... COMPARISON: Correlated to CT abdomen and pelvis dated September 25, 2024. TECHNIQUE: AP and oblique views of the sacroiliac joints FINDINGS: No acute cortical disruption. No lytic or blastic lesions. XR/XR sacroiliac joint min 3V IMPRESSION: Normal x-ray, sacroiliac joints. Please refer to the lumbar spine x-ray. Electronically signed by: Franklyn Orona MD 01/28/2025 11:09 AM EDT
--- NOTE | ~2025-01-28 | XR_ITS ---
EXAMINATION: XR LUMBOSACRAL SPINE CLINICAL INFORMATION: S39.012A - Strain of muscle, fascia and tendon of lower back, initial en... COMPARISON: March 28, 2023. TECHNIQUE: AP and lateral views FINDINGS: Levoconvex curvature apex at L2-3. Grade 1 anterolisthesis L5-S1. Spondylolysis pars interarticularis at L5-S1. Spina bifida occulta S1. No lytic or blastic lesions. No acute cortical disruption. XR/XR lumbar spine 2-3V IMPRESSION: Grade 1 anterolisthesis secondary to spondylolysis pars interarticularis at L5-S1. Stable. Electronically signed by: Franklyn Orona MD 01/28/2025 11:08 AM EDT
== END 2025-01-28 09:48 | disposition home or self-care (01) ==
LOC: HO.XRAY 09:47
PROVIDERS: PCP Physician Assistant; Visit Provider Nurse Practitioner Family
DX: S39.012A Strain of muscle, fascia and tendon of lower back, initial encounter (principal); X58.XXXA Exposure to other specified factors, initial encounter; F33.1 Major depressive disorder, recurrent, moderate; Z13.31 Encounter for screening for depression; Y93.9 Activity, unspecified; Y92.9 Unspecified place or not applicable; Y99.9 Unspecified external cause status
CPT/HCPCS: 72100; 72202; 99212

== ENCOUNTER 2025-01-28 09:47 | Outpatient (AMB) | payer OTHER, SELFPAY ==
--- NOTE | 2025-01-28 09:54 | A.OFFPC_ITS ---
Vital Signs 01/28/25 09:55 Height 5 ft 9 in Weight 194 lb 8 oz BMI 28.7 BP 120/82 Blood Pressure Location Lt brachial Position Sitting Pulse 69 Pulse Source Pulse Oximeter Temp 96.9 F Temp Source Temporal Artery Scan Pulse Oximetry (%) 98 Oxygen Delivery Method Room Air Intake Visit Reasons: [facility] ED discharge 12/18 MRI requested Intake Note: Patient is here to follow-up after a visit the emergency department at [facility] on 12/18/24. Requesting for MRI order of lower back. Premium Auditor Required: No Crime Scene Technician: Not Required per policy Accompanied by: Self / Same As Patient Allergies No Known Allergies (No Known Allergies*) Allergy (Verified 01/28/25 09:55) Tobacco use date assessed: 01/28/25 Dental Screening Dental Screen Date: 07/28/24 HPI HPI Comments History of Present Illness Details 39 y/o Male patient with past medical h/ o SANJUANA, MDD, LDDD, kidney stones, polysubstance abuse, and alcohol use disorder, presents to the clinic today for EDF. He was admitted at [facility] on 12/18 for an evaluation and treatment of Lower midline lumbar pain. Patient denies any pain with urination, increased urinary frequency, increased urinary urgency, blood in his urine or stool, syncope or a near syncopal episode, recent trauma or falls, bowel incontinence, or bladder incontinence. Patient's CT chest showed no acute process but did show s-curved scoliosis which the patient states he did not previously know about. After a long discussion with Patient regarding obtaining MRI at this Time; He is willing to do Lower chest Xrays and Start Physical therapy. [facility] Medical History Opioid use disorder PTSD (post-traumatic stress disorder) Alcohol use disorder Kidney stone SANJUANA (generalized anxiety disorder) Asthma Polysubstance abuse MDD (major depressive disorder), recurrent episode, moderate Surgical History H/O eye surgery Family History Mother No problems noted. Father DMII (diabetes mellitus, type 2) Brother No problems noted. Brother Heart attack Brother No problems noted. Sister No problems noted. Sister No problems noted. Sister No problems noted. Son No problems noted. Son No problems noted. Social History (Updated 01/28/25 @ 10:01 by JAYMIE Gray) Household Members: None Household Members Other:: Rico lives on his own Housing: Homeless Do you presently have visiting nurse or other home services: No Alcohol intake: current Alcohol intake frequency: a few times a week Alcohol type: beer and hard liquor Patient Tobacco Use Status: Current everyday Tobacco user Tobacco use type: Cigarette and Smokeless Tobacco Cigarette Packs Per Day: 0.5 Cigarettes Per Day: 4 e-Cigarette/Vaping Use: Currently Using Frequency of e-Cigarette/Vaping Use: Daily Second Hand Smoke Exposure: Yes Substance Use Type: Painkillers service: No Current occupational status: employed Current occupation: [email or web address] Sexual orientation: Straight/Heterosexual Cognitive needs: No Hearing needs: No Vision needs: No Questionnaire PHQ-9 Over the last 2 weeks, how often have you been bothered by any of the following problems? 1. Little interest or pleasure in doing things: more than half the days 2. Feeling down, depressed, or hopeless: more than half the days 3. Trouble falling or staying asleep, or sleeping too much: more than half the days 4. Feeling tired or having little energy: more than half the days 5. Poor appetite or overeating: several days 6. Feeling bad about yourself - or that you are a failure or have let yourself or your family down: more than half the days 7. Trouble concentrating on things, such as reading the newspaper or watching television: more than half the days 8. Moving or speaking so slowly that other people could have noticed. Or the opposite - being so fidgety or restless that you have been moving around a lot more than usual: several days 9. Thoughts that you would be better off or of hurting yourself in some way: several days Total score: 15 Depression Screening Interpretation: Positive Depression Screening Done: Yes Source: Developed by Drs. Abel Velasquez, Jennifer Rodríguez, Dionisio Driscoll and colleagues, with an educational john from [employer]. Thrive Questionnaire Date Thrive assessed: 01/28/25 I am a: Patient What is your living situation today?: I choose not to answer this question Within the past 12 months, did the food you bought not last and you didn't have the money to get more?: Sometimes True Within the past 12 months, did you worry whether your food would run out before you got money to buy more?: Sometimes True Do you have trouble paying for medicines?: I choose not to answer this question Do you have trouble getting transportation to medical appointments?: Yes Do you have trouble paying your heating and electricity bill?: I choose not to answer this question Do you have trouble taking care of your child, family member or friend?: No Do you have trouble with day-to-day activities such as bathing, preparing meals, shopping, managing finances, etc.?: I choose not to answer this question Are you currently unemployed and looking for a job?: Yes Are you interested in more education?: No Please select the resources that you would like help with: None Currently or been in a relationship where the following occur: I choose not to answer THRIVE Score: 3 AUDIT C Alcohol Use Questionnaire (AUDIT-C) 1. How often do you have a drink containing alcohol?: Monthly or less 2. How many drinks containing alcohol do you have on a typical day when you are drinking?: 1 or 2 3. How often do you have six or more drinks on one occasion?: Never Total Score: 1 SANJUANA-7 AMB Questionnaire SANJUANA-7 Date SANJUANA - 7 assessed: 07/28/24 Source: Developed by Drs. Abel Velasquez, Jennifer Rodríguez, Dionisio Driscoll and colleagues, with an educational john from [employer]. Physical exam (Primary Care) Vital Signs: Last Vital Signs Temp 96.9 F 01/28/25 09:55 Pulse 69 01/28/25 09:55 BP 120/82 01/28/25 09:55 Pulse Ox 98 01/28/25 09:55 Oxygen Delivery Method Room Air 01/28/25 09:55 BMI result Body Mass Index 28.7 Tobacco/Smoking Status: Tobacco use Status Tobacco use date assessed 01/28/25 01/28/25 10:03 Patient Tobacco Use Status Current everyday Tobacco 01/28/25 10:03 Tobacco use type Cigarette,Smokeless Tobacco 01/28/25 10:03 e-Cigarette/Vaping Use Currently Using 01/28/25 10:03 PHQ-9: PHQ-9 Score PHQ-9: Total score 15 01/28/25 10:44 Depression Screening Interpretation: Positive Thrive Assessment: Date of Thrive Assessment Date Thrive assessed 01/28/25 01/28/25 10:03 Currently or been in a relationship where the following occur: I choose not to answer Const General: no acute distress Nutritional Appearance: overweight Orientation/consciousness: patient oriented x3 Resp Effort & Inspection: normal respiratory effort Auscultation: clear to auscultation bilaterally Cardio Heart sounds: S1 normal heart sound present and S2 normal heart sound present Back/Spine/Pelvis Back: back tenderness Thoracic/Lumbar Spine: pain with thoraco-lumbar ROM and lumbar spinal tenderness Sacrum: no ecchymosis, no erythema and tenderness midline Neuro General: patient oriented x3, gait normal and moves all extremities Coding Level of Care Code Est Pt Level 4 (42405) Diagnoses Lumbar back pain M54.50 Time Spent (min) 20 Assessment & Plan Assessment & Plan (1) Lumbar back pain: Code(s): M54.50 - Low back pain, unspecified Category: Medical Plan: Ordered PT and Back Xray NSAIDs and Acetaminophen for pain relief. Ordered Meloxicam and refilled Cymbalta. Orders: Orders PT Evaluation and Treatment Today M54.50 - Low back pain, unspecified XR lumbar spine 2-3V Today S39.012A - Strain of muscle, fascia and tendon of lower back, initial encounter XR sacroiliac joint min 3V Today S39.012A - Strain of muscle, fascia and tendon of lower back, initial encounter Medications: New meloxicam 15 mg PO DAILY 30 tabs 0RF S39.012A - Strain of muscle, fascia and tendon of lower back, initial encounter Refilled duloxetine (Cymbalta) 60 mg (2 x 30 mg) PO DAILY 60 caps 0RF 30 days F33.1 - Major depressive disorder, recurrent, moderate, S39.012A - Strain of muscle, fascia and tendon of lower back, initial encounter Discontinued ibuprofen Discontinued Reason: Patient Completed Course 600 mg PO Q8H PRN 30 tabs 0RF pain B-complex with vitamin C Discontinued Reason: Patient Completed Course 1 tab PO DAILY 90 tabs 0RF docusate sodium Discontinued Reason: Patient Completed Course 100 mg PO BID 60 caps 0RF
[2025-01-28 09:55] VITALS: BP 120/82; PULSE 69; TEMP 36.1; O2SAT 98; BMI 28.7
--- OUTSIDE RECORDS SUMMARY | 2025-01-28 09:58 | XMS_ITS | Clinical Summary ---
Author Organization [facility] Address [address] [place] [address] Care Team Providers Care Real Estate Administrative Assistant Name Role Phone Patient, Has No Pcp Or Ref Primary Care Provider Unavailable Allergies No known active allergies Medications tamsulosin (FLOMAX) 0.4 mg capsule Take 1 capsule (0.4 mg total) by mouth once a day for 14 days. 14 capsule 4 Active ondansetron (ZOFRAN ODT) 4 mg disintegrating tablet Dissolve 1 tablet (4 mg total) in the mouth every 8 hours as needed for nausea or vomiting. 10 tablet 4 Active Social History Tobacco Use Types Packs/Day Years Used Date Smoking Tobacco: Never Smokeless Tobacco: Never Tobacco Cessation:Counseling Given: Not Answered Alcohol Use Standard Drinks/Week Comments Yes 0 (1 standard drink = 0.6 oz pur e alcohol) Sex and Gender Information Value Date Recorded Sex Assigned at Male 01/20/2024 11:54 AM EDT Legal Sex Male 11:25 AM EDT Gender Identity Not on file Sexual Orientation Not on file Last Filed Vital Signs Vital Sign Reading Time Taken Comments Blood Pressure 151/97 01/20/2024 2:50 PM EDT Pulse 78 01/20/2024 2:50 PM EDT Temperature 36.7 C (98 F) 01/20/2024 2:50 PM EDT Respiratory Rate 20 01/20/2024 2:50 PM EDT Oxygen Saturation 99% 01/20/2024 2:50 PM EDT Inhaled Oxygen Concentration - - Weight 90.7 kg (200 lb) 01/20/2024 11:34 AM EDT Height 172.7 cm (5' 8 ) 01/20/2024 11:34 AM EDT Body Mass Index 30.41 01/20/2024 11:34 AM EDT Plan of Treatment Health Maintenance Due Date Last Done Comments HIV Screening 1987 Varicella Vaccines (1 of 2 - 13+ 2-dose series) 2000 Hepatitis B Vaccines (1 of 3 - 19+ 3-dose series) 2006 DTaP,Tdap,and Td Vaccines (1 - Tdap) 2009 COVID-19 Vaccine (1 - 2023-2 5 season) 2024 Alcohol/Substance Use Screening 06/30/2024 Depression Screening and Follow-Up 06/30/2024 Social Drivers of Health Danyelle ual Screening 06/30/2024 Influenza Vaccine (#1) 2025 RSV Vaccine (60+ years old a nd patients) (1 - 1-dose 75+ series) 2062 Hepatitis C Screening Completed 01/20/2024 Pneumococcal Vaccine: Pediat tiago (0-5 Years) and At-Risk Patients (6-50 Years) Aged Out No longer eligible b ased on patient's age to complete this topic Procedures * Due to [place] law, this organization might not be sharing negative HIV tests. Procedure Name Priority Date/Time Associated Diagnosis Comments HEPATITIS C ANTIBODY W/REFLEX TO HCV RNA, QUANTITATIVE PCR STAT 01/20/2024 12:23 PM EDT from Last 3 Months or Most Recently Relevant to Health Maintenance Results * Due to [place] law, this organization might not be sharing negative HIV tests. * Hepatitis C Antibody w/Reflex to HCV RNA, Quantitative PCR (01/20/2024 12:23 PM EDT) Hepatitis C Antibody NON-REACT VAN NON-REACT VAN 01/21/2024 1:43 AM EDT [facility] Comment: HCV antibody was non-reactive. There is no laboratory evidence of HCV infection. In most cases, no further action is required. However, if recent HCV exposure is suspected, a test for HCV RNA (test code 73966) is suggested. For additional information please refer to http://education.[employer]/faq/WRA21e1 (This link is being provided for informational/ educational purposes only.) Blood Structure of peripheral vein / Unknown Venipuncture / Unknown 01/20/2024 12:23 PM EDT 01/20/2024 12:26 PM EDT Narrative FEMI GILLIAM - 01/21/2024 1:43 AM EDT [facility] Received Date:[id number] Katie Fonseca FOCUSER LAB BLOOD ORDERABLES Fi nal Result [facility] [address], [place] [address], [place] [phone] [facility] [address], [place] [address], [place] [phone] from Last 3 Months or Most Recently Relevant to Health Maintenance Insurance [employer] HSNO/FREE CARE Care Teams Real Estate Administrative Assistant Relationship Specialty Start Date End Date Patient, Has No Pcp Or Ref DO NOT EDIT THIS RECORD VIA PROVIDER ON THE FLY PCP - General Special Effects Specialist 01/20/24
--- OUTSIDE RECORDS SUMMARY | 2025-01-28 09:58 | XMS_ITS | Clinical Summary ---
Author Organization [facility] Address [address] [place], [place] [id number] Phone Care Team Providers Care Dandy Operator Name Role Phone Pcp, Unknown Primary Care Provider Unavailabl e Allergies No known active allergies Medications oxyCODONE 5 MG immediate release tablet Take 1 tablet (5 mg total) by mouth every 4 (four) hours as needed. Partial fill ok 16 tablet 02/02/2024 Active Social History Tobacco Use Types Packs/Day Years Used Date Smoking Tobacco: Never Assessed Education Answer Date Recorded Are you interested in more education? Not on saniya e 02/02/2024 Are you concerned about learning? Not on file 02/02/2024 No 02/02/2024 No 02/02/2024 Digital Access Answer Date Recorded No 02/02/2024 No 02/02/2024 Reliable internet access at home? Not on file 02/02/2024 Device with a working camera? Not on file Intimate Partner Violence Answer Date R ecorded Are you denied basic needs s uch as food, clothing, or medical care? No 02/02/2024 In the past 12 months have y ou been in a relationship with a person who hurts, threatens, or tries to control you? No 02/02/2024 Are you denied basic needs s uch as food, clothing, or medical care? No 02/02/2024 In the past 12 months have y ou been in a relationship with a person who hurts, threatens, or tries to control you? No 02/02/2024 Sex and Gender Information Value Date Recorded Sex Assigned at Not on file Legal Sex Male 5:15 AM EDT Gender Identity Not on file Sexual Orientation Not on file Last Filed Vital Signs Vital Sign Reading Time Taken Comments Blood Pressure 147/92 02/02/2024 8:31 AM EDT Pulse 94 02/02/2024 8:31 AM EDT Temperature 36.2 C (97.2 F) 02/02/2024 8:31 AM EDT Respiratory Rate 18 02/02/2024 8:31 AM EDT Oxygen Saturation 97% 02/02/2024 8:31 AM EDT Inhaled Oxygen Concentration - - Weight 90.7 kg (200 lb) 02/02/2024 5:26 AM EDT Height 172.7 cm (5' 8 ) 02/02/2024 5:26 AM EDT Body Mass Index 30.41 02/02/2024 5:26 AM EDT Plan of Treatment Health Maintenance Due Date Last Done Comments Adult Td,Tdap Booster 1987 LIPID PANEL 1987 DEPRESSION SCREENING 1999 SMOKING Hx and SMOKELESS TOB ACCO SCREENING 2000 HIV ONE-TIME SCREENING (18-6 5 YEARS) 2005 COVID-19 VACCINE (2023-2 5 season) 2024 SCREENING FOR DIABETES 02/01/2027 02/02/2024 HEPATITIS C SCREENING Completed 01/20/2024 HEPATITIS A VACCINES Aged Out No long er eligible based on patient's age to complete this topic HIB VACCINES Aged Out No longer eligi ble based on patient's age to complete this topic MENINGOCOCCAL VACCINES (ACWY) Aged Out No longer eligible based on patient's age to complete this topic MENINGOCOCCAL VACCINES (B) Aged Out N o longer eligible based on patient's age to complete this topic PNEUMOCOCCAL VACCINES (0-49 years) Aged Out No longer eligible based on patient's age to complete this topic Medical Devices Not on file Insurance [facility] [place] [address] [place] [address] [place] [address] [place] [address] [place] [facility] [place] [address] [place] [address] [place] [address] [place] [address] [employer] Care Teams Dandy Operator Relationship Specialty Start Date End Date Pcp, Unknown PCP - General 02/02/24 Additional Source Comments The information contained in this document represents components of the legal health record. It is not the complete legal health record.[facility]
== END 2025-01-28 11:27 | disposition home or self-care (01) ==
LOC: HO.HMCH 09:48
PROVIDERS: PCP Physician Assistant; Visit Provider Nurse Practitioner Family
DX: M54.50 Low back pain, unspecified (principal)

== ENCOUNTER → 2025-01-28 10:49 | Outpatient (BNV) | payer OTHER, SELFPAY | PROVIDERS: PCP Physician Assistant; Visit Provider Radiology Diagnostic Radiology | DX: R10.2 Pelvic and perineal pain (principal); M43.17 Spondylolisthesis, lumbosacral region | CPT/HCPCS: 72100; 72202 ==